=== PATIENT | female | born 1995 | race Caucasian/White ===

== ENCOUNTER 2020-10-21 12:45 | Emergency (ER) | payer OTHER, SELFPAY ==
[2020-10-21 12:58] VITALS: BP 118/76; PULSE 100; RESP 18; TEMP 36.8; O2SAT 99
[2020-10-21 13:13] LABS: Glucose Point of Care 278 mg/dl (65-105)
--- NOTE | 2020-10-21 13:49 | ED.FEVER ---
HPI - Fever General Chief Complaint: Fever Stated Complaint: white/sore throat/fever Time Seen by Provider: 10/21/20 13:50 Source: patient and RN notes reviewed Mode of arrival: ambulatory Limitations: no limitations History of Present Illness HPI Narrative: 24-year-old female with history of type 1 insulin-dependent diabetes, breast-feeding presents with concern for increased blood sugars, headache, sore throat over the past 2 days. She reports when she is ill or getting redness to her. Her blood sugars will increase. She has an insulin pump and has been requiring more insulin. She denies cough, shortness of breath, body aches, chills, sweats. Reports nausea with 2 episodes of vomiting yesterday, denies any subsequent vomiting. MD elicited complaint: fever Related Data Home Medications Medication Instructions Recorded Confirmed insulin lispro [Humalog U-100 1 sliding scale dose SUBCUT 10/21/20 10/21/20 Insulin] USEASDIRECTD Allergies Allergy/AdvReac Type Severity Reaction Status Date / Time sulfamethoxazole Allergy Mild Hives Verified 10/21/20 13:09 FLUOXETINE HCL Allergy Unknown Hives Uncoded 10/21/20 13:09 Review of Systems Review of Systems: CONSTITUTIONAL: Denies malaise, chills, sweats. Reports fever. EYES: Denies visual changes, redness, or discharge. ENT: Denies rhinorrhea, congestion, sinus pain, otalgia. Reports CARDIOVASCULAR: Denies chest pain, palpitations, or edema. RESPIRATORY: Denies cough or dyspnea. GASTROINTESTINAL: Denies abdominal pain, nausea, vomiting, diarrhea SKIN: Denies rash or itching. MUSCULOSKELETAL: Denies myalgia. NEUROLOGIC: Reports headache. All systems reviewed & are unremarkable except as noted in HPI and below PMFSH Comments At time of signature, agree with nursing past medical, surgical, social and family history. There is no relevant family history pertinent to the presenting complaint Exam Narrative: GENERAL: Well-appearing, well-nourished, and in no acute distress. HEAD: Normocephalic EYES: PERRLA, conjunctivae clear ENT: Nares clear. Mucous membranes moist. TM pearly felix with sharp light reflex bilaterally; no tragal tenderness. Oropharynx not erythematous without lesions. Tonsils not enlarged and without exudate, no drooling, no hoarseness, no trismus, uvula midline. NECK: Supple. No lymphadenopathy CHEST: Clear to auscultation, breath sounds equal. No wheezing, rhonchi, rales, or stridor. No respiratory distress, speaks in full sentences. HEART: Regular rate and rhythm. No murmur heard. SKIN: Warm, dry, no rash. NEURO: Alert and oriented x3. PSYCH: Normal mood and affect Course Course Emergency Course: Discussed with patient continue to monitor of her blood sugars. Patient reports she was hospitalized for Covid last year and is aware of signs and symptoms to monitor and is aware when she should seek care in the emergency department. Patient is aware of diagnosis, understands and agrees to treatment plan. Anticipatory guidance given. Patient agrees to follow-up as directed and is aware of reasons to seek care at the emergency department. Portions of this record may have been created with voice recognition software Vital Signs Vital signs: Vital Signs Temperature 98.2 F 10/21/20 12:58 Pulse Rate 100 10/21/20 12:58 Respiratory Rate 18 10/21/20 12:58 Blood Pressure 118/76 10/21/20 12:58 Pulse Oximetry 99 10/21/20 12:58 Temperature 98.2 F 10/21/20 12:58 Pulse Rate 100 10/21/20 12:58 Respiratory Rate 18 10/21/20 12:58 Blood Pressure 118/76 10/21/20 12:58 Pulse Oximetry 99 10/21/20 12:58 Reviewed. MDM - Fever MDM Narrative Medical decision making narrative: Differential diagnosis considered: Driscoll virus, strep pharyngitis, allergic rhinitis, upper respiratory tract infection, sinusitis, rhinosinusitis, nasopharyngitis. viral pharyngitis, otitis media, otitis externa, pneumonia, bronchitis, viral cough syndrome, viral syndrome, and
== END 2020-10-21 14:10 | disposition home or self-care (01) ==
PROVIDERS: Emergency Provider Nurse Practitioner
DX: U07.1 COVID-19 (principal); M32.9 Systemic lupus erythematosus, unspecified; E10.9 Type 1 diabetes mellitus without complications; Z96.41 Presence of insulin pump (external) (internal)
CPT/HCPCS: 82948; 87081; 87426; 87880; 99213; C9803; G0463

== ENCOUNTER 2021-06-14 15:13 | Emergency (ER) | payer OTHER, SELFPAY ==
--- NOTE | ~2021-06-14 | XR_ITS ---
XR ankle RT min 3V DATE: 06/14/2021 15:48 INDICATION: Right ankle pain after a fall last night TECHNIQUE: 4 views COMPARISON: None FINDINGS: No fracture or dislocation of the ankle or disruption of the ankle mortise. No periosteal r eaction or bone destruction. IMPRESSION: No fracture or dislocation Reviewed, dictated and finalized at location A. IMPRESSION: No fracture or dislocation
--- NOTE | ~2021-06-14 | XR_ITS ---
XR knee RT min 4V DATE: 06/14/2021 15:49 INDICATION: Right knee pain after a fall last night. TECHNIQUE: 4 views including crosstable lateral COMPARISON: None FINDINGS: No fracture or dislocation or joint effusion. No periosteal reaction or bone destruction. N o radiopaque intra-articular loose body or chondrocalcinosis. IMPRESSION: No fracture or dislocation or joint effusion Reviewed, dictated and finalized at location A.
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
[2021-06-14 15:25] VITALS: BP 117/84; PULSE 82; RESP 18; TEMP 36.7; O2SAT 99
== END 2021-06-14 16:10 | disposition home or self-care (01) ==
PROVIDERS: Emergency Provider Nurse Practitioner Family; PCP Family Medicine
DX: S93.401A Sprain of unspecified ligament of right ankle, initial encounter (principal); S83.421A Sprain of lateral collateral ligament of right knee, initial encounter; E10.9 Type 1 diabetes mellitus without complications; Z87.891 Personal history of nicotine dependence; Z79.4 Long term (current) use of insulin; W01.0XXA Fall on same level from slipping, tripping and stumbling without subsequent striking against object, initial encounter; Y92.89 Other specified places as the place of occurrence of the external cause
CPT/HCPCS: 73564; 73610; 99213; G0463

== ENCOUNTER 2021-08-06 10:11 | Emergency (ER) | payer OTHER, SELFPAY ==
[2021-08-06 10:18] VITALS: BP 114/82; PULSE 89; RESP 16; TEMP 36.5; O2SAT 99
--- NOTE | 2021-08-06 10:27 | ED.URI ---
HPI - URI/Sore Throat General Chief Complaint: Upper Respiratory Infection Stated Complaint: sore throat Time Seen by Provider: 08/06/21 10:20 History of Present Illness HPI Narrative: 25-year-old female presented for complaint of sore throat for 4 days. She does endorse associated sinus congestion and nasal drainage. Endorses right neck lymph node swelling chronically, however in the last 4 days it has been bigger and more painful. She is undergoing testing for further evaluation with her PCP. She denies headache, nausea, vomiting, cough, shortness of breath, fevers or chills. She did 2 home COVID test that were negative. She denies taking anything for symptoms. She is going on vacation tomorrow. Related Data Home Medications Medication Instructions Recorded Confirmed insulin lispro 100 unit/mL 1 sliding scale dose subcut 10/21/20 07/24/21 subcutaneous cartridge (Humalog USEASDIRECTD U-100 Insulin) Allergies Allergy/AdvReac Type Severity Reaction Status Date / Time sulfamethoxazole Allergy Mild Hives Verified 07/24/21 13:48 FLUOXETINE HCL Allergy Unknown Hives Uncoded 07/24/21 13:48 Review of Systems Review of Systems: CONSTITUTIONAL: Denies body aches, fever, chills, or sweats. EYES: Denies visual changes, redness, or discharge. ENT: Repots rhinorrhea, congestion CARDIOVASCULAR: Denies chest pain, palpitations, or edema. RESPIRATORY: Denies dyspnea. GASTROINTESTINAL: Denies abdominal pain, nausea, vomiting, or diarrhea. SKIN: Denies rash, itching, or wounds. MUSCULOSKELETAL: Denies back pain, joint pain, or myalgia. NEUROLOGIC: Denies headache PMFSH Past Medical History Medical History ADD (attention deficit disorder) ADHD Anemia Hemoglobin 13.5 with folic acid greater than 20, vitamin B12 1108, iron 77 with 36% saturation and ferritin 60 on 05/20/2021. Anxiety Asthma B12 deficiency Level normal at 1108 on 05/20/2021. Hemoglobin 13.5. BMI 28.0-28.9,adult Cervicalgia Chronic depression Diabetes Encounter to establish care Lymph nodes enlarged Myalgia Recovering alcoholic Right knee pain Sensation of knee instability Thyroid disorder Type 1 diabetes Glucose 138 with hemoglobin A1c 10.1 on 05/20/2021. Vitamin D deficiency, unspecified (05/20/21) Level low at 22 with goal greater than 30 on 05/20/2021. Wellness examination Family History Family History Father Alcoholism Hypertension Mother Cancer Depression Anxiety Thyroid disorder Other Asthma Social History Social History Smoking packs per day: 0.5 Smoking cigarettes per day: 10.0 Years smoked: 9 Smoking pack-years: 4.50 Smoking status: Former smoker Alcohol intake: former Substance use: current Substance use type: marijuana Exam Narrative: GENERAL: well-appearing EYES: conjunctivae clear ENT: Mucous membranes moist. TM pearly felix with normal light reflex bilaterally; no tragal tenderness. Oropharynx erythematous without lesions. Tonsils enlarged and without exudate. No drooling, no hoarseness, no trismus, uvula midline. No tripod positioning, hot potato voice, or soft palate swelling. NECK: Supple. right anterior cervical lymphadenopathy, tender with palpation CHEST: Clear to auscultation, breath sounds equal. No respiratory distress, speaks in full sentences. HEART: Regular rate and rhythm. No murmur heard. SKIN: Warm, dry, no rash. NEURO: Alert and oriented x3. Course Course Emergency Course: Patient is aware of diagnosis, understands and agrees to treatment plan. Anticipatory guidance given. Patient agrees to follow-up as directed and is aware of reasons to seek care at the emergency department. Portions of this record may have been created with voice recognition software Level of Care: [facility] Visit Vital
== END 2021-08-06 10:53 | disposition home or self-care (01) ==
PROVIDERS: Emergency Provider Nurse Practitioner Family; PCP Family Medicine
DX: J02.9 Acute pharyngitis, unspecified (principal); J45.909 Unspecified asthma, uncomplicated; E10.9 Type 1 diabetes mellitus without complications
CPT/HCPCS: 87081; 87804; 87880; 99213; G0463

== ENCOUNTER 2023-08-07 18:03 | Emergency (ER) | payer OTHER, SELFPAY ==
--- NOTE | ~2023-08-07 | XR_ITS ---
EXAMINATION: XR elbow LT min 3V DATE: 08/07/2023 19:29 INDICATION: Left elbow injury. TECHNIQUE: 4 views of left elbow were obtained. COMPARISON: None. FINDINGS: Bone alignment is normal. No fracture. Joint spaces are normal. No elbow joint effusion. IMPRESSION: 1. No fracture. Reviewed, dictated and finalized at location E. IMPRESSION: 1. No fracture.
--- NOTE | 2023-08-07 18:06 | ED.GENADULT ---
HPI - General Adult General Chief complaint: Extremity Injury, Upper <HEMANT Schmidt - Last Filed: 08/07/23 18:31> Stated complaint: left elbow pain <HEMANT Schmidt - Last Filed: 08/07/23 18:31> Time Seen by Provider: 08/07/23 18:06 <HEMANT Schmidt - Last Filed: 08/07/23 18:31> Source: patient <HEMANT Schmidt - Last Filed: 08/07/23 18:31> Mode of arrival: ambulatory <HEMANT Schmidt - Last Filed: 08/07/23 18:31> Limitations: no limitations <HEMANT Schmidt - Last Filed: 08/07/23 18:31> History of Present Illness HPI narrative: 27-year-old female patient presents to the [facility] with complaints of left elbow pain. Patient states she was sliding down a inflatable slide and hit her left elbow on the middle portion of the pool. Patient states happened approximately 4 hours ago and is having a bit of tingling to the 3rd and 4th digit of the left hand. Patient states it hurts when she bends the elbow but no pain with extending the elbow. Patient states she did take some Tylenol prior to arrival. <HEMANT Schmidt - Last Filed: 08/07/23 18:31> Related Data Home medications: Home Medications Medication Instructions Recorded Confirmed insulin lispro 100 unit/mL 1 sliding scale dose subcut 10/21/20 08/07/23 subcutaneous cartridge (Humalog USEASDIRECTD U-100 Insulin) blood-glucose sensor (Dexcom G7 08/07/23 08/07/23 Sensor device) blood-glucose transmitter (Dexcom 08/07/23 08/07/23 G6 Transmitter device) <HEMANT Schmidt - Last Filed: 08/07/23 18:31> Allergies/adverse reactions: Allergies Allergy/AdvReac Type Severity Reaction Status Date / Time sulfamethoxazole AdvReac Mild Hives Verified 08/07/23 18:10 FLUOXETINE HCL AdvReac Mild Hives Uncoded 08/07/23 18:10 <HEMANT Schmidt - Last Filed: 08/07/23 18:31> Review of Systems Review of Systems: CONSTITUTIONAL: Denies fever, chills, or sweats. EYES: Denies visual changes, redness, or discharge. ENT: Denies rhinorrhea, congestion, sore throat, or otalgia. CARDIOVASCULAR: Denies chest pain, palpitations, or edema. RESPIRATORY: Denies cough or dyspnea. GASTROINTESTINAL: Denies abdominal pain, nausea, vomiting, or diarrhea. GENITOURINARY: Denies dysuria or hematuria. SKIN: Denies rash or itching. MUSCULOSKELETAL: Denies back pain, joint pain, or myalgia. Positive left elbow pain NEUROLOGIC: Denies headache, numbness, or weakness. PSYCHIATRIC: Denies anxiety or depression. <HEMANT Schmidt - Last Filed: 08/07/23 18:31> [facility] Past Medical History Medical History: Medical History ADD (attention deficit disorder) ADHD Anemia Hemoglobin 13.5 with folic acid greater than 20, vitamin B12 1108, iron 77 with 36% saturation and ferritin 60 on 05/20/2021. Anxiety Asthma B12 deficiency Level normal at 1108 on 05/20/2021. Hemoglobin 13.5. BMI 28.0-28.9,adult Cervicalgia Chronic depression Diabetes Encounter to establish care Infected dental caries Insomnia Lymph nodes enlarged Myalgia Periodontal disease Recovering alcoholic Right knee pain Sensation of knee instability Thyroid disorder Type 1 diabetes Glucose 138 with hemoglobin A1c 10.1 on 05/20/2021. Vitamin D deficiency, unspecified (05/20/21) Level low at 22 with goal greater than 30 on 05/20/2021. Wellness examination <HEMANT Schmidt - Last Filed: 08/07/23 18:31> Family History Family History: Family History Father Alcoholism Hypertension Mother Cancer Depression Anxiety Thyroid disorder Other Asthma <HEMANT Schmidt - Last Filed: 08/07/23 18:31> Social History Social History: Social History Smoking packs per day: 0.5 Smoking cigarettes per day: 10.0 Years smoked: 9 [place]
[2023-08-07 18:12] VITALS: BP 123/88; PULSE 102; RESP 16; TEMP 36.7; O2SAT 100
== END 2023-08-07 19:45 | disposition home or self-care (01) ==
PROVIDERS: Emergency Provider Nurse Practitioner Family; PCP Family Medicine
DX: S50.02XA Contusion of left elbow, initial encounter (principal); W22.8XXA Striking against or struck by other objects, initial encounter; E10.9 Type 1 diabetes mellitus without complications; Z79.4 Long term (current) use of insulin; Z87.891 Personal history of nicotine dependence; F12.90 Cannabis use, unspecified, uncomplicated
CPT/HCPCS: 73080; 99213; G0463

== ENCOUNTER → 2023-08-11 08:57 | Outpatient (CLI) | payer OTHER, SELFPAY ==
--- NOTE | ~2023-08-11 | XR_ITS ---
EXAMINATION: XR elbow LT min 3V DATE: 08/11/2023 09:11 INDICATION: Left elbow pain. Injury. TECHNIQUE: 4 views of left elbow were obtained. COMPARISON: Left elbow radiograph 08/07/2023 FINDINGS: Bone alignment is normal. No fracture. Joint spaces are well maintained. There is no elbow joint effusion. IMPRESSION: 1. No fracture. Reviewed, dictated and finalized at location A. IMPRESSION: 1. No fracture.
== END ==
LOC: EXPTROY 08:59
PROVIDERS: PCP Nurse Practitioner Family; Visit Provider Nurse Practitioner Family
DX: M25.522 Pain in left elbow (principal); W19.XXXA Unspecified fall, initial encounter
CPT/HCPCS: 73080

== ENCOUNTER 2024-03-19 14:16 | Outpatient (CLI) | payer OTHER, SELFPAY ==
--- OUTSIDE RECORDS SUMMARY | 2024-03-19 15:11 | XMS_ITS | Encounter Summary ---
Author Organization [facility] Address [address] [facility] [address] [place] [address] Phone Care Team Providers Care Electrical Instrument Technician Name Role Phone No, Physician Primary Care Provider Clinic, Physical Meteorologist X. Primary Care Provider No, Physician Primary Care Provider No, Physician Primary Care Provider Clinic, Physical Meteorologist X. Primary Care Provider No, Physician Primary Care Provider Clinic, Physical Meteorologist X. Primary Care Provider No, Physician Primary Care Provider Clinic, Physical Meteorologist X. Primary Care Provider No, Physician Primary Care Provider Clinic, Physical Meteorologist X. Primary Care Provider No, Physician Primary Care Provider Clinic, Physical Meteorologist X. Primary Care Provider Clinic, Physical Meteorologist X. Primary Care Provider Clinic, Physical Meteorologist X. Primary Care Provider No, Physician Primary Care Provider No, Physician Primary Care Provider Clinic, Physical Meteorologist X. Primary Care Provider No, Physician Primary Care Provider Ary Kwan NP Primary Care Provider [phone] Clinic, Physical Meteorologist X. Primary Care Provider [phone] Bhargav Jain MD Primary Care Provider [phone] Encounter Details Date Type Department Care Team (Late st Contact Info) Description 12/05/2019 Ophth Exam [facility] [address] [place] [address] [address] [place] [id number] Vimal Stuart MD [address] [facility] [phone] [id number] [place] [address] Social History Tobacco Use Types Packs/Day Years Used Date Smoking Tobacco: Former Cigarettes Smokeless Tobacco: Never Comments:one pack per week Alcohol Use Standard Drinks/Week Comments Never 0 (1 standard drink = 0.6 oz pur e alcohol) AUDIT-C Answer Date Recorded Frequency of Alcohol Consumption Never 07/12/2019 Average Number of Drinks Not on file 020 Frequency of Binge Drinking Not on file 06/15 Comments Yes Sex and Gender Information Value Date Recorded Sex Assigned at Not on file Legal 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 Author Med Mgmt Goal - Patient will understand importance of following medication regimen and will take appropriate steps to maintain regimen ACO Care Management Maddy Meyers Note: Problem: Medication management Interventions: - Assess barriers to medication adherence: Provide coordination of care, education and resources to address these barriers. Include SW in patient's plan of care for resources if needed. - Instruct patient to: Take each medication each day at the times indicated by using a system (list, pill box, etc.). Do not allow prescriptions to or bottles to become empty before requesting refills. Bring all medications to each office visit. Contact physician or CM if they feel they are having side effects from medications (rather than stopping them without telling anyone). TTW Diabetes Goal - Patient verbalizes knowledge and ability to manage diabetes TTW Case Management No Kim Velasco, RN Note: Problem: Knowledge deficit - Diabetes Interventions: - Provide educational materials specific to patient needs. - Follow up within 1-2 weeks of mailing to review materials and ensure patient understands information provided. documented as of this encounter Visit Diagnoses Not on filedocumented in this encounter Additional Health Concerns Infection Onset Date Last Indicated Resolved Time C. difficile suspected 08/25/2023 08/25/202308/24 12:58 PM CDT documented as of this encounter Eye Exam Visual Acuity Right eye Left eye Near sc 20/40 ph 20/25 20/25 ph 20/20 Patient states her right eye has always been weaker than her left eye Pupils Dark Light Shape React APD Right eye 5 3 Round Brisk None Left eye 5 3 Round Brisk None Visual Noe Right eye Left eye Full Full Extraocular Movement Right eye Left eye Full Full No pain with EOMs Neuro/Psych Oriented x3: Yes Dilation Both eyes: 1.0% Mydriacyl, 2 .5% Phenylephrine @ 4:55 AM External Exam Right eye Left eye External Mild periorbital edema and eryth chasity Normal Slit Lamp Exam Right eye Left eye Lids/Lashes Periorbital edema an d erythema, upper and lower eyelid edema. No obvious discharge/drainage but some eyelid crusting upon waking up this AM. Normal Conjunctiva/Sclera Injection, papillary reaction along inferior eyelid White and quiet Cornea Clear, no stain uptake Clear Anterior Chamber Deep and formed Deep and formed Iris Round and reactive Round and vee ctive Lens Clear Clear Fundus Exam Right eye Left eye Disc Normal Normal C/D Ratio 0.2 0.2 Macula Normal Normal Vessels Normal Normal Periphery Normal Normal Care Teams Electrical Instrument Technician Relationship Specialty Start Date End Date No, Physician PCP - General 12/03/19 12/08/19 Clinic, Physical Meteorologist [address] [place] [address] PCP - General 12/09/19 12/16/19 No, Physician PCP - General 12/18/19 12/20/19 No, Physician PCP - General 12/17/19 12/17/19 Clinic, Physical Meteorologist [address] [place] [address] PCP - General 12/21/19 12/30/19 No, Physician PCP - General 12/31/19 12/31/19 Clinic, Physical Meteorologist [address] [place] [address] PCP - General 01/01/20 01/24/20 No, Physician PCP - General 01/25/20 02/01/20 Clinic, Physical Meteorologist [address] [place] [address] PCP - General 02/02/20 02/03/20 No, Physician PCP - General 02/04/20 03/07/20 Clinic, Physical Meteorologist [address] [place] [address] PCP - General 03/08/20 03/10/20 No, Physician PCP - General 03/16/20 03/19/20 Clinic, Physical Meteorologist [address] [place] [address] PCP - General 03/20/20 03/27/20 [facility], Physical Meteorologist [address] [place] [address] PCP - General 03/28/20 04/03/20 [facility], Physical Meteorologist [address] [place] [address] PCP - General 04/05/20 04/07/20 No, Physician PCP - General 04/08/20 04/08/20 No, Physician PCP - General 04/09/20 05/28/20 Clinic, Physical Meteorologist [address] [place] [address] PCP - General 05/29/20 06/05/20 No, Physician PCP - General 03/30/21 03/30/21 Ary Kwan NP [address] [place] [address] PCP - General Family Medicine 03/31/21 05/20/21 Clinic, Physical Meteorologist [address] [place] [address] PCP - General 05/21/21 02/23/22 Bhargav Jain MD [address] [address] PCP - General Family Medicine 02/24/22 documented as of this encounter
--- OUTSIDE RECORDS SUMMARY | 2024-03-19 15:11 | XMS_ITS | Clinical Summary ---
Author Organization [facility] Address [address] [place] [address] Care Team Providers Care Assistant Credit Manager Name Role Phone Bhargav Jain MD Primary Care Provider [phone] Allergies Active Allergy Reactions Criticality Noted Date Comments Sulfamethoxazole-Trimethoprim Swelling Medium 2018 Fluoxetine Swelling,Urticaria Medium 05/18/2012 Medications albuterol HFA (PROVENTIL HFA,VENTOLIN HFA,PROAIR HFA) 90 mcg/actuation inhaler Inhale 2 puffs every 4 (four) hours as needed for wheezing 1 Inhaler 1 0 Active ARIPiprazole (ABILIFY) 10 mg tablet Take 0.5 tablets (5 mg total) by mouth daily 2 Active venlafaxine XR (EFFEXOR-XR) 75 mg 24 hr capsule Take 1 capsule (75 mg total) by mouth daily 2 Active acetone, urine, test stripIndications: Type 1 diabetes mellitus with hyperglycemia (HCC) Test first AM urine and as directed 100 strip 11 3 Active insulin syringe-needle U-100 0.5 mL 31 gauge x 5/16 syringeIndication s:Type 1 diabetes mellitus with hyperglycemia (HCC) Use to inject 1-4 times daily as directed when off pump. 100 each 11 3 Active Additional Information Patient not taking.Reported on 07/13/2023 insulin glargine (BASAGLAR) 100 unit/mL (3 mL) pen for injection Inject 25 Units under the skin as needed (in case of insulin pump failure) 3 mL 3 Active dextroamphetamine -amphetamine (ADDERALL) 15 mg tablet TAKE 1 TABLET BY MOUTH TWICE DAILY TAKE 4-6 HOURS APART 4 Active glucagon (Baqsimi) 3 mg/actuation spray,non-aerosol Indications:patie nt with diabetes mellitus at risk of hypoglycemia Administer 1 spray into one nostril as needed (severe hypoglycemia) 2 each 11 4 Active blood-glucose sensor (Dexcom G7 Sensor) deviceIndications :E10.65 Z79.4 Use as directed to monitor blood glucose. 9 each 3 4 Active triamcinolone (KENALOG) 0.1 % ointment Apply topically 2 (two) times a day 4 Active mupirocin (BACTROBAN) 2 % ointment Apply topically 2 (two) times a day 4 Active diphenhydrAMINE (BENADRYL) 25 mg capsule Take 1 tablet/capsule (25 mg total) by mouth every 6 (six) hours as needed for itching 4 Active insulin lispro (HumaLOG, ADMELOG) 100 unit/mL vial for injectionIndicati ons:Type 1 diabetes mellitus with hyperglycemia (HCC) INFUSE UP TO 80 UNITS VIA INSULIN PUMP DAILY 20 mL 3 4 Active Active Problems Problem Noted Date Diagnosed Date Hyperglycemia 08/25/2023 Assessment & Plan (08/27/2023 11:14 AM CDT): Presented with hyperglycemia, positive ketones 0.8, anion gap metabolic acidosis in the setting of ketosis and lactic acidosis 4.6 that improved to 2.8 with IV fluids in emergency department. Given improvement in lactate 2.8, non acidosis on ABG 7.35, well-appearing patient, will defer initiating DKA protocol at this point and will treat with subcu insulin. Positive urinalysis, however patient denies any urinary symptoms, fever. No leukocytosis. Negative viral panel. - IVF LR discontinued on 08/25. - Appreciate Endocrinology recs: Sensitive correctional Lispro (Admelog) TID AC, HS, Added Lispro sensitive (Admelog) TID AC, HS POC glucoses TID AC, HS, 2AM when eating Consistent carb diet when eating, no juices, no regular soda UTI (urinary tract infection) 08/25/2023 Assessment & Plan (08/27/2023 11:17 AM CDT): Positive urinalysis, however patient denies any urinary symptoms, fever. No leukocytosis. Will treat given concerns for DKA in this patient with type 1 diabetes. Urine culture showed >100,000 E.coli - ceftriaxone while inpatient (08/24- 08/26). - Likely discharge on PO Keflex 500 mg 1 tab BID to complete course for 7 days Depression, major, recurrent 08/25/2023 Skin rash 08/25/2023 Assessment & Plan (08/27/2023 11:15 AM CDT): Presented with multiple maculopapular spots on her extremities, pruritic, tender to touch, some with yellow drainage and crusting, on extremities with 2 breast lesions. Possibly staph infection. Received vancomycin in emergency department. - Discontinued vancomycin on 08/25 - Appreciate dermatology recs : Start Triamcinolone 0.1% ointmt BID to itchy red areas rash Start Mupirocin 2% ointmt BID to itchy red open areas of rash OK to discontinue Vanc from skin standpoint, discontinued vanc. Avoid scratching lesions Hypertriglyceridemia 10/15/2022 Hepatic steatosis 10/15/2022 Insulin pump titration 07/01/2021 Abnormal thyroid function test 07/01/2021 Upper back pain 04/25/2021 Assessment & Plan (04/25/2021 2:59 PM RESEARCH NEUROPSYCHOLOGIST): Ibuprofen 600 mg every 6 hours Muscle relaxant as needed at night. Alternate heat and ice. Stretches Follow up with your provider if you do not improve. Overweight (BMI 25.0-29.9) 06/06/2020 care following vaginal delivery 04/09 Overview (04/11/2020): # ID: Afebrile. No signs/symptoms of infection. COVID-19 negative. H/o STIs: Diagnosed with trich and chlamydia in this , s/p treatment and MARLEN except trich (tested too early). Plan to MARLEN trich PP, took tx on 03/15/20 # Heme: EBL 350 mL. Hemodynamically stable. # CV/Pulm: Vital signs stable, within normal limits. CA Asthma: Albuterol PRN, last needed inhaler 6 months ago # GI/: Tolerating PO. Voiding spontaneously. # Pain: Controlled with above regimen. # Post DVT prophylaxis: The patient has the following MAJOR risk factors none and the following MINOR risk factors BMI 30-39. SCDs ordered for VTE prophylaxis. # MOC: Desires nexplanon placement. Will place prior to d/c # MOF: # Disposition: Desires discharge home today #T1DM: Managed with dexcom/pump. Endocrine consulted for pump orders and following. BG well controlled, had 1 hypoglycemia episode yesterday PM down to 63. Per note 04/09, decrease basal rate 80% but will t/b 04/11. Plan to f/u with Endocrine this Am regarding management of insulin pump, pt scheduled to f/u with Endocrine on 04/18 # H/o Tobacco use: Quit four months ago. Encounter for induction of labor 04/08/2020 Overview (04/09/2020): 1. Induction of Labor for T1DM: s/p AROM, on OT. Continue per protocol 2. FWB: Continuous monitoring. tracing category II, reassured by moderate variability. 3. ID: HIV negative. GBS positive, on PCN. Membrane Status: intact. 4. LGA: Growth on admission 4018g (94.3%). Discussed risk of shoulder dystocia. 5. T1DM: Previously managed with dexcom/pump. Insulin gtt PRN 6. CA Asthma: Albuterol PRN, last needed inhaler 6 months ago 7. H/o Tobacco use: Quit four months ago. 8. H/o STIs: Diagnosed with trich and chlamydia in this , s/p treatment and MARLEN except trich (tested too early). 9. Indications for UDS: history of illicit drug use in last 12 months. Verbal consent obtained for UDS: Yes 10. MOF: Plans to breastfeed. 11. MOC: Plans to use nexplanon for contraception. 12. Pain management: Epidural to be placed by anesthesia. 13. Post DVT prophylaxis: The patient has the following MAJOR risk factors none and the following MINOR risk factors BMI 30-39. SCDs will be ordered for VTE prophylaxis . 14. COVID Test Status: Test sent on admission negative. Excessive growth affec ting management of in third trimester 03/28/2020 Overview (04/04/2020): 03/28/2020 EFW 3,890g (99%), AC >99% Discussed with Dr. West and plan for repeat growth next week at 38w6d Will schedule C/S delivery at 39 weeks but confirm delivery plan with next growth US, if patient presents in spontaneous labor prior to next growth will need to discuss MOD Reviewed risks of LGA including C/S, shoulder dystocia, hypoglyecmia and pp hemorrhage Excessive growth affec ting management of mother in third trimester, antepartum 03/16/2020 Overview (03/28/2020): Added automatically from request for surgery [id number] Thrombocytopenia affecting ([facility]) 0 03/07/2020 Overview (03/28/2020): 02/26: plt 142 Continue to monitor closely [] repeat at 37 wks- ordered Heartburn during in third trimester Overview (03/04/2020): Significant heartburn. Pepcid helping Acute follicular conjunctivitis of right eye Assessment & Plan (12/07/2019 1:55 PM CDT): Patient with swelling and erythema affecting the right eye. Seen while in the hospital on 12/05/2019. Has improved with augmentin -- today with, exam most consistent with follicular conjunctivitis, concerning for chlamydial conjunctivitis -- pt has been treated for chlamydia 13 weeks ago, has been receiving frequent GC/Chlamydia tests with [facility]. Most recent was negative in early November Plan: -- will change topical drops (gtts) to moxifloxacin (intolerant of polytrim, does not like ointment -- will give azithromycin 1g once -- conj culture taken today -- will contact [facility] -- RTC in 10 days Positive urine drug screen 09/19/2019 Overview (03/21/2020): UDS + for amphetamine and THC during 09/14/2019 hospital admission 12/04 + THC 02/26 +THC Social work consult completed Sexually transmitted infection affecting pregnan cy 09/19/2019 Overview (04/04/2020): 08/27/2019: POSITIVE CT, GC and Trich Diagnosed and treated again for trich 10/11 with metronidazole 7 day course. 11/18- gc/ct neg/neg, trichamoniasis- positive, prescription for flagyl 500mg bid for 7 days 01/24- gonorrhea +, chlamydia -, trich + gonorrhea treated 01/31, only completed 5 days of flagyl 02/26: gc/ct negative, trich positive (pt notified 03/03 and new rx sent for 7 day course of flagyl) counseled on importance of completing the full course 03/07: Pt states she is unable to keep down flagyl. States regardless of what she does she throws up the dose every time. 03/11/2020 s/p tinidazole 03/18/20 GC/CT [NEG/NEG], TRICH [POS - retest obtained too early - pt took treatment on 03/15/20 ] Needs Trich retest on 04/07/20 Type 1 diabetes mellitus with hyperglycemia 08/15 Overview (04/04/2020): - Type 1 DM diagnosed age 18 - Followed with [facility] - Managed on Lantus and Humalog - Labs: A1C 08/27/19 9.9%, Cr 0.5, normal LFTs, TSH wnl She always eats a 70 gram of carbs with her meals. CGM, Dexcom Log in information: [email or web address] User name: Rafael Password: [email or web address] Current Regimen 04/04/2020 12a-3a ??1.45 -- 1.5 3a-12p ?1.5 12p-6p 1.55 -- 1.6 6p-12a ??1.6 -- 1.65 ?? CF: 1:20 I:C 1:3.5; 12p-5p 1:2.5 Active insulin 3 hours Target BG 100 -Using dexcom clarity CGM -Previously counseled, aware of BS goals -We will plan to monitor blood glucose log weekly for adjustment -Anatomic survey and echo complete and normal -Continue serial growth ultrasounds- (AGA 80% 02/25/20) -Start twice weekly testing starting at 32 weeks ([facility] at [place], [facility]) -Delivery at 37-39 weeks depending on compliance and glycemic control. -Continue ASA for preeclampsia prevention Assessment & Plan (04/04/2020 10:44 AM RESEARCH NEUROPSYCHOLOGIST): BS log will be reviewed by M fellow following this appointment and Mitali will be notified of any changes. Assessment & Plan (03/07/2020 1:50 PM RESEARCH NEUROPSYCHOLOGIST): BS log reviewed by Dr. West, adjustments made above. Will continue weekly visits for insulin adjustments. Assessment & Plan (02/11/2020 7:59 PM RESEARCH NEUROPSYCHOLOGIST): Blood sugars over the last 4 days with mildly elevated fasting to 102. Postprandials elevated to max 246 but was accidentally taking humalog 16 units q hs with meals instead of prescribed 20. Recommended to start 20 humalog daily with meals and additional glucose logs provided, encouraged to send every week for review. CGM broken for a few days (now fixed). No hypoglycemic episodes. Assessment & Plan (02/01/2020 8:29 PM RESEARCH NEUROPSYCHOLOGIST): BS log reviewed today by Dr. Phipps and changes made. Assessment & Plan (09/19/2019 3:33 PM CDT): Will continue current regimen and add medication for nausea. Rx placed today. Recommend she call our office with lows <65. She will keep a good log and will review in 1 week. [facility] 09/04/2019 Overview (03/21/2020): - Previously smoked 5 cig/day, quit Asthma during 09/04/2019 Overview (03/21/2020): - Does not use any rescue inhaler at this time, Rx Albuterol PRN - Denies recent exacerbation. Prior 09/04/2019 Overview (03/21/2020): - Prior 36 week spontaneous PTB - Counseled patient on option for progesterone therapy, currently declines - Normal cervical length sreening Supervision of high-risk , unspecified trimester 08/29/2019 Overview (04/04/2020): [x] Full [facility] Care Referring provided: Dr. 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 Discussed plan with Dr. West and will schedule C/S delivery at 39 weeks and repeat growth at 38w6d prior to delivery. Patient is ok with C/S delivery if indicated. C/S scheduled 04/12/20 @ 0930 [x] Place of delivery: [facility] [x] MOC: Nexplanon [x] Method of feeding: breast [x] Steam Setter: [x] PP Depression Discussed: Autoimmune disorder 07/27/2019 Overview (08/27/2019): 08/27/19 states she is being worked up, does not have a diagnosis. Hives 06/04/2019 Overview (06/04/2019): Experiencing hives intermittently. No new soaps or detergents. Assessment & Plan (06/04/2019 3:51 PM CDT): -Desonide cream prn, advised to use sparingly as may cause thinning of skin Gingivitis 06/04/2019 Assessment & Plan (06/04/2019 4:02 PM CDT): -Advised to go to dentist Does not have health insurance 06/04/2019 Overview (06/04/2019): Uninsured. 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 Previously was told she made too much and did not qualify for state assistance but should qualify now. Assessment & Plan (06/04/2019 4:03 PM CDT): Advised patient to apply for insurance Tobacco use 11/10/2018 Overview (06/04/2019): Smoking 5-7 cigarettes per day. Quit date of 06/08. Counseled regarding use of nicotine patch and gum. Patient is able to identify stressors which lead to her smoking as well as benefits of quitting smoking (better health for her daughter, her diabetes). Assessment & Plan (06/04/2019 3:49 PM CDT): -Nicotine patch & gum Asthma 06/16/2012 Overview (02/01/2020): 08/27/19 Uses breathing treatments at home when necessary. States it has been about 3 months since last use. Assessment & Plan (01/22/2023 10:45 AM RESEARCH NEUROPSYCHOLOGIST): --Continue PRN albuterol inhaler Depression 06/16/2012 Overview (03/04/2020): Mood ok, decided to not start Zoloft. No SI/HI. Will let us know if she desires additional support. - Continue to monitor mood Assessment & Plan (08/25/2023 4:15 AM CDT): History of depression and ADHD: Continue home Abilify, venlafaxine, Adderall Assessment & Plan (01/22/2023 10:45 AM RESEARCH NEUROPSYCHOLOGIST): --Continue home doses of Abilify and venlafaxine Resolved Problems Problem Noted Date Diagnosed Date Resolved Date Diabetic ketoacidosis withou t coma associated with type 1 diabetes mellitus ([facility]) 05/23/2022 07/13/2023 Assessment & Plan (01/23/2023 11:09 AM RESEARCH NEUROPSYCHOLOGIST): A1c 9.6% in January 2023. Patient presents with 3 weeks of severe hyperglycemia and positive serum ketones. Her hyperglycemia worsened 1.5 weeks ago after she switched from her insulin pump to subcutaneous short acting insulin injections after developing cellulitis at her pump site (since resolved). Prior to admission, she had been administering short-acting insulin (20 to 40 units per meal) without administration of basal insulin. She was treated in the ED with an insulin drip, IV fluids and IV potassium with subsequent closure of her anion gap. - Weight-based, basal bolus regimen ordered with glargine 13 units q am, Lispro 4 units TID AC and sliding-scale insulin - endocrinology consulted for reinitiation of insulin pump, and saw patient 12/10 AM with plan made Pre-existing type 1 diabetes mellitus during , antepartum 03/16/2020 07/13/2023 Overview (03/28/2020): Added automatically from request for surgery [id number] Type 1 diabetes mellitus wit h complication ([facility]) 11/08/2018 02/11/2020 Overview (06/04/2019): Current regimen: Lantus 20, humalog 10 tid HbA1c Lab Results Component Value Date HGBA1C 13.0 (H) 11/07/2018 BP At goal Not at goal BP Readings from Last 1 Encounters: 06/04/19 119/74 Microalbumin/Creatinine No results found for: MICROALBUR, [id number] ACEi/ARB prescribed: lisinopril 2.5 Antiplatelet therapy prescribed no due to patient age ASCVD risk score The ASCVD Risk score (Lewis BARNES Jr., et al., 2013) failed to calculate for the following reasons: The 2013 ASCVD risk score is only valid for ages 40 to 79 Foot/extremity exam loss of sensation under big toe Retinopathy seen by eye doctor within past year Ancillary Support : bag bundler, DM educator and pharmacist Assessment & Plan (06/04/2019 4:01 PM CDT): -Will refer to endo -Repeat HgbA1C -Microalb:Cr ratio Assessment & Plan (11/08/2018 12:48 PM CDT): On admission, patient had blood glucose of 497 and AG of 16. -On the date of discharge, AM glucose is 214 and AG is 8. -Patient required 9 sliding scale units the day before discharge in addition to her 15 units QHS and 10 units with meals. -Home with insulin glargine 20 units QHS and insulin lispro 12 units TID with meals -Blood glucose checks QAM, QAC, QHS -Follow up with PCP -No sliding scale insulin at home for now- can consider starting it as outpatient Encounters Date Type Department Care Team Description 01/30/2024 Telephone [facility] Endocrinology Metabolism and Lipid [address] [facility] [address], [address] [place] [address] Naya Marcus RMA from Last 3 Months Immunizations Name Administration Dates Next Due DTaP 10/18/2001,,07/04/1996,05/02/1996,0 03/02/1996 Hep A, Adult 10/25/2019 Hep B, Adolescent or Pediatric 10/18/2001,1996,02/21/1996 Influenza, Trivalent, IM (MDV) 11/30/2010 MMR 04/11/2020(Deferred: No longer needed),10/18/2001,04/25/1997 OPV 10/18/2001,08/24/1997,05/02/1996 ,03/02/1996 Tdap 02/01/2020,03/14/2012 Varicella 03/14/2012 Medical History Medical History Date Comments Diabetes mellitus (HCC) Thyroid disease Diabetes mellitus type 1 (HCC) 2014 Anxiety and depression Asthma Urinary tract infection Diabetic ketoacidosis withou t coma associated with type 1 diabetes mellitus (CMS/HCC) (HCC) 05/23/2022 Pre-existing type 1 diabetes mellitus during , antepartum 03/16/2020 Added automatically from request for surgery [id number] Family History Medical History Relation Name Comments Diabetes Maternal Grandmother Cervical cancer Mother Thyroid disease Mother Relation Name Status Comments Maternal Grandmother Mother Alive Social History Tobacco Use Types Packs/Day Years Used Date Smoking Tobacco: Former Cigarettes Smokeless Tobacco: Never Tobacco Cessation:Counseling Given: Not Answered Comments:one pack per week Alcohol Use Standard Drinks/Week Comments Never 0 (1 standard drink = 0.6 oz pur e alcohol) [facility] [employer] Answer Date Recorded In the past 12 months has e [employer], gas, oil, or water [employer] threatened to shut off services in your home? No 08/25/2023 Humiliation, Afraid, Rape, and Kick questionnair e Answer Date Recorded Within the last year, have y ou been afraid of your partner or ex-partner? No 08/25/2023 Within the last year, have y ou been humiliated or emotionally abused in other ways by your partner or ex-partner? No Within the last year, have y ou been kicked, hit, slapped, or otherwise physically hurt by your partner or ex-partner? No 08/25/2023 Within the last year, have y ou been raped or forced to have any kind of sexual activity by your partner or ex-partner? No 08/25/2023 Social Connection and Isolat ion Panel [NHANES] Answer Date Recorded In a typical week, how many times do you talk on the phone with family, friends, or neighbors? More than three times a week 08/25/2023 How often do you get togethe r with friends or relatives? More than three times a week 08/25/2023 How often do you attend chur ch or yazdanism services? Never 08/25/2023 Do you belong to any clubs o r organizations such as samaritan groups, unions, fraternal or athletic groups, or school groups? No 08/25/2023 How often do you attend meet ings of the clubs or organizations you belong to? Never 08/25/2023 Are you , , di vorced, , never , or living with a partner? Never 08/25/2023 AUDIT-C Answer Date Recorded Q1: How often do you have a drink containing alc ohol? Monthly or less 08/25/2023 Q2: How many drinks containi ng alcohol do you have on a typical day when you are drinking? 1 or 2 08/25/2023 Q3: How often do you have si x or more drinks on one occasion? Never 08/25/2023 Overall Financial Resource Strain (CARDIA) Answe r Date Recorded How hard is it for you to pa y for the very basics like food, housing, medical care, and heating? Somewhat hard 08/25/2023 [facility] - Occupational Stress Questionnaire Answer Date Recorded Do you feel stress - tense, restless, nervous, or anxious, or unable to sleep at night because your mind is troubled all the time - these days? Only a little 08/25/2023 Exercise Vital Sign Answer Date Recorde d On average, how many days pe r week do you engage in moderate to strenuous exercise (like a brisk walk)? 0 days 08/25/2023 On average, how many minutes do you engage in exercise at this level? 0 min 08/25/2023 Hunger Vital Sign Answer Date Recorded Within the past 12 months, y ou worried that your food would run out before you got the money to buy more. Never true 08/25/19 24 Within the past 12 months, t he food you bought just didn't last and you didn't have money to get more. Never true 08/25/2023 PRAPARE - Transportation Answer Date Re corded In the past 12 months, has l ack of transportation kept you from medical appointments or from getting medications? No 08/14 In the past 12 months, has l ack of transportation kept you from meetings, work, or from getting things needed for daily living? No 08/25/2023 Housing Stability Vital Sign Answer Omer e Recorded In the last 12 months, was t here a time when you were not able to pay the mortgage or rent on time? No 05/24/2022 In the last 12 months, how many places have you lived? 1 05/24/2022 In the last 12 months, was t here a time when you did not have a steady place to sleep or slept in a custodial (including now)? No 05/24/2022 [place] Depression Scale Answer Date Recorded [place] Depression Scale Total 0 05/28/2020 The thought of harming myself has occurred to me . Never 05/28/2020 Housing Stability Vital Sign Answer Omer e Recorded In the last 12 months, was t here a time when you were not able to pay the mortgage or rent on time? Yes 08/25/2023 In the past 12 months, how m any times have you moved where you were living? 0 08/25/2023 At any time in the past 12 m [facility], were you homeless or living in a custodial (including now)? No 08/25/2023 Personal Safety Answer Date Recorded Have you ever been in or are you currently in a harmful physical or emotional relationship or is someone making you feel afraid or unsafe? Denies 08/25/2023 Comments Unknown Sex and Gender Information Value Date Recorded Sex Assigned at Not on file Legal Sex Female 9:20 AM RESEARCH NEUROPSYCHOLOGIST Gender Identity Not on file Sexual Orientation Not on file Obstetrics History Para Term AB IAB SAB Ectopic Multiple Livin g Live Births 3 2 1 1 1 1 0 2 2 Date Outcome GA Total Labor Labor/2nd/3rd Weight Sex Type Anes PTL Hannah A1 A5 Name Clin SAB SAB 5 36w 0d 2.807 kg (6 lb 3 oz) F Vag-S pont Livin g 2020 Term 38w 4d 0h 27m 0h 22m/0h 05m 3.995 kg (8 lb 12.9 oz) M Vag-S pont Epidur al N Livin g 8 9 CELESTE WILLIS Jeanni e Chen, MD Complications:Shoulder Dysto matt Delivery Location:[facility] Main C ampus ([facility] 58LD) Last Filed Vital Signs Vital Sign Reading Time Taken Comments Blood Pressure 131/87 08/27/2023 11:30 AM CDT Pulse 91 08/27/2023 11:30 AM CDT Temperature 36.7 ??C (98.1 ??F) 08/27/2023 1 1:30 AM CDT Respiratory Rate 18 08/27/2023 11:3 0 AM CDT Oxygen Saturation 100% 08/27/2023 11: 30 AM CDT Inhaled Oxygen Concentration - - Weight 94.8 kg (208 lb 15.9 oz) 024 10:20 PM CDT Height 177.8 cm (5' 10 ) 08/25/2023 10: 20 PM CDT Body Mass Index 29.99 08/25/2023 10:20 PM CDT Plan of Treatment Health Maintenance Due Date Last Done Comments Cervical Cancer Screening 1995 Foot Exam 1995 Pneumococcal vaccine <65 (1 of 2 - PCV) 12/19/2001 Varicella Vaccines (2 of 2 - 13+ 2-dose series) 04/11/2012 03/14/2012 Regular Well Visit/Exam 18-64 08/26/2020 08/27/2019 Dilated Eye Exam 12/04/2020 12/05/2019 Depression Screening 05/28/2021 05/28/2020 Albumin Creatinine Ratio, Urine 05/20/2022 05/20/2021, 06/04/2019 Lipid Panel 06/03/2023 06/02/2022, 07/2021, 05/28/2020, Additional history exists Influenza Vaccine (#1) 2023 11/30/2010 Hemoglobin A1C 01/13/2024 07/13/2023, 12/0 10/2022, 01/22/2023, Additional history exists TSH Level 08/24/2024 08/25/2023, 12/0 10/2022, 01/21/2023, Additional history exists eGFR 08/25/2024 08/26/2023, 08/14, 08/25/2023, Additional history exists DTaP/Tdap/Td Vaccine (8 - Td or Tdap) 01/31/2030 02/01/2020, 03/14/2012, 10/18/2001, Additional history exists Hepatitis C Screening Completed 08/27/2019 HPV Vaccines Aged Out No longer eligi ble based on patient's age to complete this topic Goals Goal Patient Goal Type Associated Problems Recent Progress Patient-Stated? Author Med Mgmt Goal - Patient will understand importance of following medication regimen and will take appropriate steps to maintain regimen ACO Care Management No Maddy Stephen Note: Problem: Medication management Interventions: - Assess [...] ability to manage diabetes TTW Case Management Kim Kumar, RN Note: Problem: Knowledge deficit - Diabetes Interventions: - Provide educational materials specific to patient needs. - Follow up within 1-2 weeks of mailing to review materials and ensure patient understands information provided. Procedures Procedure Name Priority Date/Time Associated Diagnosis Comments EGFR Routine 08/26/2023 9:06 PM CDT THYROID FUNCTION CASCADE STAT 08/25/2023 12:40 AM CDT POCT HEMOGLOBIN A1C Routine 07/13/2023 3 :56 PM CDT Type 1 diabetes mellitus with hyperglycemia (HCC) LIPID PANEL WITH DIRECT LDL Routine 06/02/2022 1:54 PM CDT Type 1 diabetes mellitus with hyperglycemia (HCC) ALBUMIN CREATININE RATIO, URINE Routine 05/20/2021 12:08 PM CDT Type 1 diabetes mellitus with hyperglycemia (HCC) HEPATITIS C ANTIBODY Routine 08/27/2019 11:57 AM CDT Positive test from Last 3 Months or Most Recently Relevant to Health Maintenance Results * eGFR (08/26/2023 9:06 PM CDT) eGFR >90 >=60 mL/min/1. 73 m2 Comment: Interpretive Data Reference Interval Normal ?>/= 90 mL/min/1.73m2 Mildly decreased* ? 60 - 89 mL/min/1.73m2 Mildly to moderately decreased ?45 - 59 mL/min/1.73m2 Moderately to severely decreased ??30 - 44 mL/min/1.73m2 Severely decreased ?15 - 29 mL/min/1.73m2 Kidney Failure ?< 15 ??mL/min/1.73m2 *Relative to young adult level Estimated glomerular filtration rate is determined by the 2020 CKD-EPI equation recommended by the National Kidney Foundation (A Unifying Approach to GFR Estimation: Recommendations of the NKF-ASK Task Force on Reassessing the Inclusion of Race in Diagnosing Kidney Disease, JASN 2020). The CKD-EPI equation should not be used for patients with unstable renal function and has not been validated in children and those over 70. Current interpretive data was last reviewed 2020. Blood 08/26/2023 9:06 PM CDT 08/26/2023 9:18 PM CDT us Rajinder Jackson NP LAB BLOOD ORDERABLES Final Resu lt [facility] Department [place] [address] * Thyroid Function [place] (08/25/2023 12:40 AM CDT) TSH 0.64 0.30 - 4.20 mcIUnit/mL Blood 08/25/2023 12:4 0 AM CDT 08/25/2023 12:59 AM CDT us James Harding MD LAB BLOOD ORDERABLES Final Re sult [facility] Department [place] [address] * POCT hemoglobin A1c (07/13/2023 3:56 PM CDT) Hemoglobin A1C, POC 7.8 % Blood 07/13/2023 3:56 PM CDT Chadwick Fair MD PhD POINT OF CARE TEST ORDERABLES Final Result * (ABNORMAL) Lipid panel with direct LDL (06/02/2022 1:54 PM CDT) Triglycerides 226(H) <150 mg/dL [facility] Comment: Desirable: <150 mg/dL, fasting <175 mg/dL, non-fasting Persistently elevated triglycerides may enhance atherosclerotic cardiovascular disease. Total Cholesterol 180 <200 mg/dL [facility] Total HDL-C Direct 55 >50 mg/dL [facility] Non-HDL cholesterol 125 <220 mg/dL [facility] LDL Direct 115 <190 mg/dL [facility] Blood 06/02/2022 1:54 PM CDT 06/02/2022 2:18 PM CDT Narrative [facility] - 06/02/2022 3:07 PM CDT Current interpretive data was last updated January 16, 2021. Chadwick Fair MD PhD LAB BLOOD ORDERABL ES Final Result [facility] * Albumin Creatinine Ratio, Urine (05/20/2021 12:08 PM CDT) Albumin Ur <12.0 mg/L [facility] Comment: Interpretive Data No reference range established. Current interpretive data was last revised 2018. Creatinine Ur 157.2 mg/dL [facility] Comment: Interpretive Data No reference range established. Current interpretive data was last revised 2018. Albumin Creatinine Ratio, Ur <8 1 - 29 mg/g [facility] Urine 05/20/2021 12:0 8 PM CDT 05/20/2021 12:42 PM CDT Chadwick Fair MD PhD LAB URINE ORDERABL ES Final Result Performing Organization Address [facility] Co de Phone Number [facility] Department [place] [address] * Hepatitis C antibody (08/27/2019 11:57 AM CDT) Pathologist [facility] Hep C Ab NONREACT NONREACTIVE [facility] Comment: Siemens [employer] using MATT (chemiluminescent immunoassay) technology. NONREACTIVE: Antibodies to Hepatitis C not detected. This does not exclude early acute Hepatitis C infection, possibility of exposure to Hepatitis C, antibodies below detection limit, or to lack of antibody reactivity to the antigen used in this assay. EQUIVOCAL: Antibodies to Hepatitis C may or may not be present. ??Sample to be confirmed by real-time PCR method. REACTIVE: Antibodies to Hepatitis C detected.Sample to be confirmed by real-time PCR method. Blood specimen (specimen) 08/27/2019 11:57 AM CDT 08/27/2019 12:38 PM CDT Narrative Resulting Agency Comment CLI us Yris SALAZAR LAB MICROBIOLOGY - GEN ERAL ORDERABLES Final Result [facility] [address] [place], [place] [id number] [place] [address] from Last 3 Months or Most Recently Relevant to Health Maintenance Insurance [facility] Advance Directives For more information, please contact: [phone] * Full Code (Latest Code Status on File) Date Activated Date Inactivated Comments 08/26/2023 11:20 AM 08/27/2023 6:43 PM * Full Code Date Activated Date Inactivated Comments 01/22/2023 12:26 PM 01/23/2023 5:51 PM * Full Code Date Activated Date Inactivated Comments 04/09/2020 7:51 AM 04/12/2020 2:02 AM * Full Code Date Activated Date Inactivated Comments 04/08/2020 6:30 PM 04/09/2020 7:51 AM Full CPR in case of cardiopulmonary arrest * Full Code Date Activated Date Inactivated Comments 02/27/2020 10:51 AM 02/29/2020 8:26 PM Care Teams Assistant Credit Manager Relationship Specialty Start Date End Date Bhargav Jain MD [address] [address] PCP - General Family Medicine 02/24/22
--- OUTSIDE RECORDS SUMMARY | 2024-03-19 15:11 | XMS_ITS | Referral Summary ---
Author Organization [facility] Address [address] [place] [address] Care Team Providers Care Allergist/Pediatric Pulmonologist Name Role Phone Bhargav Jain MD Primary Care Provider [phone] Encounters Date Type Department Care Team Description 01/30/2024 Telephone [facility] Endocrinology Metabolism and Lipid [address] [facility] Floor [address], [address] [place] [address] Naya Marcus RMA from Last 3 Months Allergies Active Allergy Reactions Criticality Noted Date [...] AM urine and as directed 100 strip 3 Active insulin syringe-needle U-100 0.5 mL [...] 2 each 11 4 Active blood-glucose sensor (Positron Dynamics G7 Sensor) deviceIndications :E10.65 Z79.4 Use as [...] 04/25/2021 Assessment & Plan (04/25/2021 2:59 PM CLAIMS ASSISTANT): Ibuprofen 600 mg every 6 hours Muscle [...] CV/Pulm: Vital signs stable, within normal limits. [place] Asthma: Albuterol PRN, last needed inhaler 6 [...] managed with dexcom/pump. Insulin gtt PRN 6. [place] Asthma: Albuterol PRN, last needed inhaler 6 [...] (03/28/2020): Added automatically from request for surgery [id number] Thrombocytopenia affecting (CMS/HCC) 0 03/07/2020 Overview (03/28/2020): 02/26: plt 142 [...] has been receiving frequent GC/Chlamydia tests with [facility]. Most recent was negative in early November Plan: -- will change topical drops (gtts) to moxifloxacin (intolerant of polytrim, does not like ointment -- will give azithromycin 1g once -- conj culture taken today -- will contact [facility] -- RTC in 10 days Positive urine [...] DM diagnosed age 18 - Followed with [facility] - Managed on Lantus and Humalog - Labs: A1C 08/27/19 9.9%, Cr 0.5, normal LFTs, TSH wnl She always eats a 70 gram of carbs with her meals. CGM, Dexcom Log in information: [email or web address] User name: Rafael Password: [email or web address] Current Regimen 04/04/2020 12a-3a ??1.45 -- 1.5 [...] testing starting at 32 weeks (BPP at [place], NST at [facility]) -Delivery at 37-39 weeks depending on compliance and glycemic control. -Continue ASA for preeclampsia prevention Assessment & Plan (04/04/2020 10:44 AM CLAIMS ASSISTANT): BS log will be reviewed by M fellow following this appointment and Mitali will be notified of any changes. Assessment & Plan (03/07/2020 1:50 PM CLAIMS ASSISTANT): BS log reviewed by Dr. West, adjustments made above. Will continue weekly visits for insulin adjustments. Assessment & Plan (02/11/2020 7:59 PM CLAIMS ASSISTANT): Blood sugars over the last 4 days [...] episodes. Assessment & Plan (02/01/2020 8:29 PM CLAIMS ASSISTANT): BS log reviewed today by Dr. Phipps and changes made. Assessment & Plan (09/19/2019 3:33 PM CDT): Will continue current regimen and add medication for nausea. Rx placed today. Recommend she call our office with lows <65. She will keep a good log and will review in 1 week. [facility] 09/04[facility] Overview (03/21/2020): - Previously smoked 5 [...] unspecified trimester 08/29/2019 Overview (04/04/2020): [x] Full M Care Referring provided: Dr. 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 Previously was told she made too [...] use. Assessment & Plan (01/22/2023 10:45 AM CLAIMS ASSISTANT): --Continue PRN albuterol inhaler Depression 06/16/2012 Overview (03/04/2020): Mood ok, decided to not start Zoloft. No SI/HI. Will let us know if she desires additional support. - Continue to monitor mood Assessment & Plan (08/25/2023 4:15 AM CDT): History of depression and ADHD: Continue home Abilify, venlafaxine, Adderall Assessment & Plan (01/22/2023 10:45 AM CLAIMS ASSISTANT): --Continue home doses of Abilify and venlafaxine Resolved Problems Problem Noted Date Diagnosed Date Resolved Date Diabetic ketoacidosis withou t coma associated with type 1 diabetes mellitus ([facility]) 05/23/2022 07/13/2023 Assessment & Plan (01/23/2023 11:09 AM CLAIMS ASSISTANT): A1c 9.6% in January 2023. Patient presents [...] (03/28/2020): Added automatically from request for surgery [id number] Type 1 diabetes mellitus wit h complication ([facility]) 11/08/2018 02/11/2020 Overview (06/04/2019): Current regimen: Lantus 20, humalog 10 tid HbA1c Lab Results Component Value Date HGBA1C 13.0 (H) 11/07/2018 BP At goal Not at goal BP Readings from Last 1 Encounters: 06/04/19 119/74 Microalbumin/Creatinine No results found for: MICROALBUR, [id number] ACEi/ARB prescribed: lisinopril 2.5 Antiplatelet therapy prescribed no due to patient age ASCVD risk score The ASCVD Risk score (Lewis CAMERON Jr., et al., 2013) failed to calculate for the following reasons: The 2013 ASCVD risk score is only valid for ages 40 to 79 Foot/extremity exam loss of sensation under big toe Retinopathy seen by eye doctor within past year Ancillary Support : obiee report developer, DM educator and pharmacist Assessment & Plan [...] now- can consider starting it as outpatient Immunizations Name Administration Dates Next Due DTaP 10/18/2001,,07/04/1996,05/02/1996,0 03/02/1996 Hep A, Adult 10/25/2019 Hep B, Adolescent or Pediatric 10/18/2001,1996,02/21/1996 Influenza, Trivalent, IM (MDV) 11/30/2010 MMR 04/11/2020(Deferred: No longer needed),10/18/2001,04/25/1997 OPV 10/18/2001,08/24/1997,05/02/1996 ,03/02/1996 Tdap 02/01/2020,03/14/2012 Varicella 03/14/2012 Social History Tobacco Use Types Packs/Day Years Used Date Smoking Tobacco: Former Cigarettes Smokeless Tobacco: Never Tobacco Cessation:Counseling Given: Not Answered Comments:one pack per week Alcohol Use Standard Drinks/Week Comments Never 0 (1 standard drink = 0.6 oz pur e alcohol) [facility] Answer Date Recorded In the past 12 months has e manetch, gas, oil, or water [employer] threatened to shut off services in your [...] week 08/25/2023 How often do you attend [facility] or zoroastrian services? Never 08/25/2023 Do you belong to any clubs o r organizations such as jew groups, unions, fraternal or athletic groups, or [...] medical care, and heating? Somewhat hard 08/25/2023 [facility] - Occupational Stress Questionnaire Answer Date Recorded [...] in a custodial (including now)? No 05/24/2022 [place] Depression Scale Answer Date Recorded [place] Depression Scale Total 0 05/28/2020 The thought [...] any time in the past 12 m [facility], were you homeless or living in a [...] on file Legal Sex Female 9:20 AM CLAIMS ASSISTANT Gender Identity Not on file Sexual Orientation Not on file Last Filed Vital Signs Vital Sign Reading [...] 08/25/2023 10:20 PM CDT Plan of Treatment Not on file Goals Goal Patient Goal Type Associated Problems [...] NP LAB BLOOD ORDERABLES Final Resu lt [facility] Department of Laboratories [place], [place] [id number] * Thyroid Function [place] (08/25/2023 12:40 AM CDT) TSH 0.64 0.30 - 4.20 mcIUnit/mL Blood 08/25/2023 12:4 0 AM CDT 08/25/2023 12:59 AM CDT us James Harding MD LAB BLOOD ORDERABLES Final Re sult Performing Organization Address City/[facility]/ZIP Co de Phone Number [facility] Department [place] [address] * POCT hemoglobin A1c (07/13/2023 3:56 PM [...] PM CDT 06/02/2022 2:18 PM CDT Narrative [facility] - 06/02/2022 3:07 PM CDT Current interpretive data was last updated January 16, 2021. Chadwick Fair MD PhD LAB BLOOD ORDERABL ES Final Result [facility] * Albumin Creatinine Ratio, Urine (05/20/2021 12:08 PM CDT) Albumin Ur <12.0 mg/L [facility] Comment: Interpretive Data No reference range established. Current interpretive data was last revised 2018. Creatinine Ur 157.2 mg/dL [facility] Comment: Interpretive Data No reference range established. Current interpretive data was last revised 2018. Albumin Creatinine Ratio, Ur <8 1 - 29 mg/g [facility] Urine 05/20/2021 12:0 8 PM CDT 05/20/2021 12:42 PM CDT us Chadwick Fair MD PhD LAB URINE ORDERABL ES Final Result Performing Organization Address City/[facility]/ZIP Co de Phone Number [facility] Department [place] [address] * Hepatitis C antibody (08/27/2019 11:57 AM CDT) Hep C Ab NONREACT NONREACTIVE [facility] Comment: Siemens [employer] using HENRY (chemiluminescent immunoassay) technology. NONREACTIVE: Antibodies to Hepatitis [...] PM CDT Narrative Resulting Agency Comment CLI Yris SALAZAR LAB MICROBIOLOGY - GEN ERAL ORDERABLES Final Result Performing Organization Address City/[facility]/ZIP Co de Phone Number [facility] [address] [phone] from Last 3 Months or Most Recently Relevant to Health Maintenance [place] [address] [place] [address] [facility] [id number] [place] [address] [facility] Advance Directives For more information, please contact: [phone] * Full Code (Latest Code Status on [...] 10:51 AM 02/29/2020 8:26 PM Care Teams Allergist/Pediatric Pulmonologist Relationship Specialty Start Date End Date Bhargav Jain MD [address] [address] PCP - General Family Medicine 02/24/22
--- OUTSIDE RECORDS SUMMARY | 2024-03-19 15:11 | XMS_ITS | Clinical Summary ---
Author Organization [facility] Address [facility] [facility] [place] [address] [place] [address] Care Team Providers Care Engineering Lecturer Name Role Phone Ary Kwan Primary Care Provider [phone] Allergies Active Allergy Reactions Criticality Noted Date Comments Sulfamethoxazole-Trimethoprim Hives 2017 Fluoxetine Swelling 03/10/2017 Medications hydrocodone-cruz taminophen 5-325 MG tablet Take 1 tablet by mouth every 6 (six) hours as needed for Pain. 15 tablet 09/27/2018 Active guaifenesin-cod eine (CHERATUSSIN AC) 100-10 MG/5ML syrupIndication s:Cough Take 10 mLs by mouth every 4 (four) hours as needed. Indications: Cough 120 mL 05/04/2019 Active cyclobenzaprine 10 MG tablet Take 1 tablet (10 mg total) by mouth 3 (three) times daily as needed. 15 tablet 07/20/2021 Active doxycycline hyclate (VIBRAMYCIN) 100 MG capsule Take 1 capsule (100 mg total) by mouth 2 (two) times daily. 20 capsule 05/24/2023 Active Family History Relation Status Comments Mother THYROID Social History Tobacco Use Types Packs/Day Years Used Date Smoking Tobacco: Former Cigarettes Q uit: 2020 Smokeless Tobacco: Never Tobacco Cessation:Counseling Given: Not Answered Alcohol Use Standard Drinks/Week Comments Yes 0 (1 standard drink = 0.6 oz pur e alcohol) social Comments No Sex and Gender Information Value Date Recorded Sex Assigned at Not on file Legal Sex Female 7:17 PM CDT Gender Identity Not on file Sexual Orientation Not on file Last Filed Vital Signs Vital Sign Reading Time Taken Comments Blood Pressure 136/101 05/24/2023 3:57 PM CDT Pulse 99 05/24/2023 3:57 PM CDT Temperature 36.4 ??C (97.6 ??F) 05/24/2023 3:57 PM CD T Respiratory Rate 18 05/24/2023 3:57 PM CDT Oxygen Saturation 99% 05/24/2023 3:57 PM CDT Inhaled Oxygen Concentration - - Weight 94.8 kg (209 lb) 05/24/2023 3:57 PM CDT Height 182.9 cm (6') 05/24/2023 3:57 PM CDT Body Mass Index 28.35 05/24/2023 3:57 PM CDT Plan of Treatment Health Maintenance Due Date Last Done Comments Cervical Cancer Screening Pap Smear (Age 21 to 29) Every 3 Years 1995 Cervical Cancer Screening 1995 Annual Physical 12/19/1998 Hepatitis C 12/19/2013 COVID-19 Vaccine ( season) 2023 Influenza Adult (#1) 2023 11/30/2010 DTaP, Tdap and Td Vaccines (8 - Td or Tdap) 01/31/2030 02/01/2020, 03/14/2012, 10/18/2001, Additional history exists Hepatitis B Vaccines Completed 10/18/2001, 11/20/1996, 02/21/1996 HPV Vaccines Aged Out No longer eligi ble based on patient's age to complete this topic Meningococcal B Vaccine Aged Out No l onger eligible based on patient's age to complete this topic Meningococcal Vaccine Aged Out No delia alon eligible based on patient's age to complete this topic Pneumococcal Vaccine: Pediatrics (0 to 5 Years) and At-Risk Patients (6 to 64 Years) Aged Out No longer eligible based on patient's age to complete this topic RSV Immunizations Under 20 Months Aged Out No longer eligible based on patient's age to complete this topic Insurance [employer] Advance Directives Documents on File Type Date Recorded Patient Emergency Dispatcher Expl anation Legal Documents 10/22/2021 5:25 PM COMPLETE D BILLING REQUEST FOR ATT[facility] Care Teams Engineering Lecturer Relationship Specialty Start Date End Date Ary Kwan APNP [address] [id number] PCP - General Nurse Practitioner Family 05/24/23
[2024-03-19 15:12] LABS: Add Urine Microscopic? YES; Appearance Urine Clear (Clear); Bacteria Urine None Seen /hpf; Bilirubin Urine Negative (Negative); Blood Urine Negative (Negative); Color Urine Yellow (Yellow); Glucose Urine UA Negative (Negative); Ketones Urine Negative (Negative); Leukocyte Esterase Ur 2+ LEU/UL (Negative); Nitrate Urine Negative (Negative); Non Pathogenic Casts 0-2; Protein Urine Negative (Negative); RBC Urine 0-2 /hpf (0-2); Specific Grav Ur 1.008 (1.001-1.035); Squamous Epithelial Cell Urine Few /hpf (Few); Urobilinogen Urine 0.2 mg/dL (<2.0)
[2024-03-19 15:14] LABS: Influenza A QL RT-PCR Negative (Negative); Influenza B QL RT-PCR Negative (Negative); RSV RNA, RT-PCR Negative (Negative); SARS-CoV-2 RNA PCR Negative (Negative)
== END 2024-03-19 14:17 | disposition home or self-care (01) ==
LOC: ANHLAB 14:17
PROVIDERS: PCP Nurse Practitioner Family; Visit Provider Nurse Practitioner Family
DX: R09.89 Other specified symptoms and signs involving the circulatory and respiratory systems (principal); E10.9 Type 1 diabetes mellitus without complications; Z20.822 Contact with and (suspected) exposure to COVID-19
CPT/HCPCS: 81001; 87637

== ENCOUNTER 2024-03-24 03:47 | Emergency (ER) | payer OTHER, SELFPAY ==
[2024-03-24 04:00] VITALS: BP 122/89; PULSE 104; RESP 20; TEMP 36.8; O2SAT 100
[2024-03-24 04:15] VITALS: BP 122/89; PULSE 95; RESP 15; O2SAT 100
[2024-03-24 04:16] VITALS: PULSE 96
[2024-03-24 04:22] LABS: Basophils Percent Auto 0.3 % (0.2-1.2); Eosinophils Percent Auto 0.5 % (0-4.4); Hematocrit 43.5 % (37.0-47.0); Hemoglobin 14.8 g/dL (12.0-15.0); Immature Granulocyte Absolute 0.02 K/mm3 (0.00-0.031); Immature Granulocyte Percent A 0.3 % (0-0.5); Lymphocytes Absolute Auto 1.34 K/mm3 (0.9-3.2); Lymphocytes Percent Auto 21.9 % (18.3-44.2); Mean Corpuscular Hemoglobin 30.8 pg (26-34); Mean Corpuscular Volume 90.4 fl (80-100); Monocytes Absolute Auto 0.3 K/mm3 (0.1-0.6); Monocytes Percent Auto 4.2 % (2.6-8.5); Neutrophils Absolute Auto 4.5 K/mm3 (1.3-6.7); Neutrophils Percent Auto 72.8 % (45.5-73.1); Platelet Count Result 200 k/mm3 (150-375); Red Blood Count 4.81 M/mm3 (4.2-5.4); Red Cell Distribution Width 12.5 % (11.5-14.5); White Blood Count 6.1 K/mm3 (4.5-10.0)
[2024-03-24 04:33] LABS: Alanine Aminotransferase 16 U/L (6-35); Albumin Level 4.5 g/dL (3.5-5.1); Alkaline Phosphatase 113 U/L (38-126); Anion Gap 12 mmol/L (4-12); Aspartate Amino Transferase 18 U/L (14-36); Blood Urea Nitrogen 14 mg/dL (7-17); Calcium 9.4 mg/dL (8.4-10.2); Carbon Dioxide 26 mmol/L (22-30); Chloride 103 mmol/L (98-107); Estimated CRCL calculation 158 ml/min; Estimated Glomerular Filt Rate > 60; Glucose 206 mg/dL (65-110); Potassium 3.5 mmol/L (3.4-5.0); Sodium 141 mmol/L (137-145)
[2024-03-24 05:15] VITALS: BP 116/81; PULSE 91; RESP 14; O2SAT 99
--- NOTE | 2024-03-24 06:30 | ED_ITS ---
HPI - General Adult General Chief complaint: Recheck/Abnormal Lab/Rx Stated complaint: Low BS/ETOH History of Present Illness HPI narrative: This is a 20-year-old female presenting with episode of low blood sugar. She was having several alcoholic beverages last night when she accidentally gave herself some insulin and her blood sugar dropped. EMS was called to give her some D10 and a sandwich to eat. A this time she has no complaints. Patient has a Dexcom is monitoring her sugars. Related Data Home Medications ?Medication ?Instructions ?Recorded ?Confirmed ?Last Taken ?Type insulin lispro 100 unit/mL 1 sliding scale dose subcut 10/21/20 02/21/24 Unknown History subcutaneous cartridge (Humalog USEASDIRECTD U-100 Insulin) blood-glucose sensor (Dexcom G7 08/07/23 02/21/24 Unknown History Sensor device) blood-glucose transmitter (Dexcom 08/07/23 02/21/24 Unknown History G6 Transmitter device) Allergies Allergy/AdvReac Type Severity Reaction Status Date / Time sulfamethoxazole AdvReac Mild Hives Verified 02/21/24 14:47 FLUOXETINE HCL AdvReac Mild Hives Uncoded 02/21/24 14:47 PMFSH Past Medical History Medical History Right otitis media Acute sinusitis Left elbow pain Infected dental caries Insomnia Periodontal disease Lymph nodes enlarged Sensation of knee instability Myalgia Cervicalgia Right knee pain Vitamin D deficiency, unspecified (05/20/21) Level low at 22 with goal greater than 30 on 05/20/2021. Chronic depression BMI 28.0-28.9,adult Recovering alcoholic ADHD ADD (attention deficit disorder) Encounter to establish care Wellness examination B12 deficiency Level normal at 1108 on 05/20/2021. Hemoglobin 13.5. Type 1 diabetes Glucose 138 with hemoglobin A1c 10.1 on 05/20/2021. Anemia Hemoglobin 13.5 with folic acid greater than 20, vitamin B12 1108, iron 77 with 36% saturation and ferritin 60 on 05/20/2021. Anxiety Thyroid disorder Diabetes Asthma Family History Family History Father Alcoholism Hypertension Mother Cancer Depression Anxiety Thyroid disorder Other Asthma Social History Social History Smoking packs per day: 0.5 Smoking cigarettes per day: 10.0 Years smoked: 9 Smoking pack-years: 4.50 Smoking status: Former smoker Alcohol intake: current Alcohol use details: socially Substance use: current Substance use type: marijuana Lack of Transportation: No Lack of Food: Never True Current Housing: I Have Housing Concerned About Future Housing: No Difficulty Paying Gas/Electric Bills: No Difficulty Paying for Meds: No Currently Unemployed: No Education: High School Diploma/GED Difficulty w/ Childcare or Family Care: No Exam 2 Narrative: APPEARANCE: No apparent distress. Head: atraumatic. EYES: EOMI, NOSE: Atraumatic NECK: Trachea midline RESPIRATORY: No increased rate of breathing CTAB CARDIOVASCULAR: RRR, ABDOMINAL: Non-distended MUSCULOSKELETAl: No obvious deformities NEURO: Alert. Moving 4/4 extremities SKIN:: Warm, dry. Normal color PSYCHIATRIC: Normal affect Course Vital Signs Vital signs: Vital Signs Temperature 98.2 F 03/24/24 04:00 Pulse Rate 104 H 03/24/24 04:00 Respiratory Rate 20 03/24/24 04:00 Blood Pressure 122/89 03/24/24 04:00 Pulse Oximetry 100 03/24/24 04:00 Oxygen Delivery Room Air 03/24/24 04:00 Temperature 98.2 F 03/24/24 04:00 Pulse Rate 96 03/24/24 04:16 Respiratory Rate 20 03/24/24 04:00 Blood Pressure 122/89 03/24/24 04:00 Pulse Oximetry 100 03/24/24 04:00 Oxygen Delivery Room Air 03/24/24 04:00 Medical Decision Making [facility] Narrative Medical decision making narrative: -Course: 28-year-old female presenting after an episode of low blood sugar after giving herself insulin. She was given dextrose and fed a sandwich by EMS. Blood sugars were monitored during her stay via her Dexcom and they have not been low. Lab work is within normal limits without evidence of DKA/HHS. Patient is clinically sober. She was discharged. Given return precautions. Vital Signs Vital Signs: Vital Signs Temperature 98.2 F 03/24/24 04:00 Pulse Rate 104 H 03/24/24 04:00 Respiratory Rate 20 03/24/24 04:00 Blood Pressure 122/89 03/24/24 04:00 Pulse Oximetry 100 03/24/24 04:00 Oxygen Delivery Room Air 03/24/24 04:00 Temperature 98.2 F 03/24/24 04:00 Pulse Rate 96 03/24/24 04:16 Respiratory Rate 20 03/24/24 04:00 Blood Pressure 122/89 03/24/24 04:00 Pulse Oximetry 100 03/24/24 04:00 Oxygen Delivery Room Air 03/24/24 04:00 Lab Data 03/24/24 04:17 03/24/24 04:17 Labs: Lab Results 03/24/24 Range/Units 04:17 WBC 6.1 (4.5-10.0) K/mm3 RBC 4.81 (4.2-5.4) M/mm3 Hgb 14.8 (12.0-15.0) g/dL Hct 43.5 (37.0-47.0) % MCV 90.4 (80-100) fl MCH 30.8 (26-34) pg MCHC 34.0 (32-36) g/dl RDW 12.5 (11.5-14.5) % Plt Count 200 (150-375) k/mm3 MPV 11.0 H (7.4-10.4) fl Immature Gran % (Auto) 0.3 (0-0.5) % Neut % (Auto) 72.8 (45.5-73.1) % Lymph % (Auto) 21.9 (18.3-44.2) % [place] % (Auto) 4.2 (2.6-8.5) % Eos % (Auto) 0.5 (0-4.4) % Baso % (Auto) 0.3 (0.2-1.2) % Lymph # (Auto) 1.34 (0.9-3.2) K/mm3 [place] # (Auto) 0.3 (0.1-0.6) K/mm3 Eos # (Auto) 0.0 (0-0.3) K/mm3 Baso # (Auto) 0.0 (0.0-0.1) K/mm3 Abs Immat Gran (auto) 0.02 (0.00-0.031) K/mm3 Absolute Neuts (auto) 4.5 (1.3-6.7) K/mm3 Absolute Nucleated RBC 0.000 (0.0-0.012) K/mm3 Nucleated RBC % 0.0 (0.0-0.2) % Sodium 141 (137-145) mmol/L Potassium 3.5 (3.4-5.0) mmol/L Chloride 103 (98-107) mmol/L Carbon Dioxide 26 (22-30) mmol/L Anion Gap 12 (4-12) mmol/L BUN 14 (7-17) mg/dL Creatinine 0.59 L (0.7-1.0) mg/dL Estim Creat Clear Calc 158 ml/min Estimated GFR > 60 (59 - ) Glucose 206 H (65-110) mg/dL Calcium 9.4 (8.4-10.2) mg/dL Total Bilirubin 1.0 (0.2-1.3) mg/dL AST 18 (14-36) U/L ALT 16 (6-35) U/L Alkaline Phosphatase 113 (38-126) U/L Total Protein 8.0 (6.3-8.2) g/dL Albumin 4.5 (3.5-5.1) g/dL Discharge Plan Discharge Clinical Impression: Hypoglycemia Patient Disposition: Home, Self-Care Condition: Stable Instructions: Antibiotic Form, Hypoglycemia in a Person with Diabetes (DC) Additional Instructions: Please continue to monitor your blood sugars with her Dexcom an insulin pump. Return if you develop any new or worsening symptoms. Please be careful when drinking alcohol. Patient Language: Sami Prescriptions: No Action (DME) Dexcom G7 Sensor Device MISCELLANEOUS (DME) Dexcom G6 Transmitter Device MISCELLANEOUS Humalog U-100 Insulin 100 unit/mL Cartridge 1 sliding scale dose SUBCUT USEASDIRECTD amoxicillin-pot clavulanate 875-125 mg tablet 1 tablet PO Q12H Qty: 20 0RF fluconazole 150 mg tablet 150 mg PO .Q3 days Qty: 2 0RF aripiprazole [Abilify] 10 mg tablet 10 mg PO DAILY Qty: 30 11RF dextroamphetamine-amphetamine [Adderall] 15 mg tablet 15 mg PO BID Qty: 60 0RF Rx Instructions: Take 4-6 hours apart azithromycin 250 mg tablet See Rx Instructions PO .COMPLEX Qty: 6 0RF Rx Instructions: For 250 mg dose pack: take 500 mg today (day 1), then 250 mg for 4 days (days 2-5) PO albuterol sulfate [Ventolin HFA] 90 mcg/actuation HFA aerosol inhaler 1 - 2 inh inhalation Q4H PRN (Reason: shortness of breath or wheezing) Qty: 8.5 0RF Follow-up/Referrals: Ary Kwan, MEDIC TECHNICIAN [Primary Care Provider] -
[2024-03-24 06:35] VITALS: BP 125/91; PULSE 100; RESP 15; O2SAT 100
--- OUTSIDE RECORDS SUMMARY | 2024-03-24 06:38 | XMS_ITS | Clinical Summary ---
Author Organization [facility] Address [address] [place] [address] Care Team Providers Care Service Assistant Name Role Phone Ary Kwan Primary Care Provider [phone] Allergies Active Allergy Reactions Criticality Noted Date [...] 99 05/24/2023 3:57 PM CDT Temperature 36.4 C (97.6 F) 05/24/2023 3:57 PM CDT Respiratory Rate 18 05/24/2023 3:57 PM CDT [...] patient's age to complete this topic Insurance [employer] Advance Directives Documents on File Type Date Recorded Patient Technical Rep Expl anation Legal Documents 10/22/2021 5:25 PM COMPLETE D BILLING REQUEST FOR [facility] Care Teams Service Assistant Relationship Specialty Start Date End Date Ary Kwan APNP [address] [address] PCP - General Nurse Practitioner Family 05/24/23
--- OUTSIDE RECORDS SUMMARY | 2024-03-24 06:39 | XMS_ITS | Encounter Summary ---
Author Organization [facility] Address [address] [facility] [address] [place] [address] Phone Care Team Providers Care Blocker And Cutter Contact Lens Name Role Phone No, Physician Primary Care Provider Clinic, [facility]. Primary Care Provider No, Physician Primary Care Provider No, Physician Primary Care Provider Clinic, [facility]. Primary Care Provider No, Physician Primary Care Provider Clinic, [facility]. Primary Care Provider No, Physician Primary Care Provider Clinic, [facility]. Primary Care Provider No, Physician Primary Care Provider Clinic, [facility]. Primary Care Provider No, Physician Primary Care Provider Clinic, [facility]. Primary Care Provider Clinic, [facility]. Primary Care Provider Clinic, [facility]. Primary Care Provider No, Physician Primary Care Provider No, Physician Primary Care Provider Clinic, [facility]. Primary Care Provider No, Physician Primary Care Provider Ary Kwan NP Primary Care Provider [phone] Clinic, [facility]. Primary Care Provider [phone] Bhargav Jain MD Primary Care Provider [phone] Encounter Details Date Type Department Care Team (Late st Contact Info) Description 12/05/2019 Ophth Exam [facility] [address] [place] [address] 1st [place] [id number] Vimal Stuart MD [address] [facility] [phone] [address] [place] [address] Social History Tobacco Use Types Packs/Day Years [...] on file Legal Sex Female 9:20 AM RN OCCUPATIONAL Gender Identity Not on file Sexual Orientation [...] Normal Normal Periphery Normal Normal Care Teams Blocker And Cutter Contact Lens Relationship Specialty Start Date End Date No, Physician PCP - General 12/03/19 12/08/19 Clinic, [facility] [address] [place] [address] PCP - General 12/09/19 12/16/19 No, Physician PCP - General 12/18/19 12/20/19 No, Physician PCP - General 12/17/19 12/17/19 Clinic, [facility] [address] [place] [address] PCP - General 12/21/19 12/30/19 No, Physician PCP - General 12/31/19 12/31/19 Clinic, [facility] [address] [place] [address] PCP - General 01/01/20 01/24/20 No, Physician PCP - General 01/25/20 02/01/20 Clinic, [facility] [address] [place] [address] PCP - General 02/02/20 02/03/20 No, Physician PCP - General 02/04/20 03/07/20 Clinic, [facility] [address] [place] [address] PCP - General 03/08/20 03/10/20 No, Physician PCP - General 03/16/20 03/19/20 Clinic, [facility] [address] [place] [address] PCP - General 03/20/20 03/27/20 [facility], [facility] [employer] [place] [place] [address] PCP - General 03/28/20 04/03/20 [facility], [facility] [address] [place] [address] PCP - General 04/05/20 04/07/20 No, Physician PCP - General 04/08/20 04/08/20 No, Physician PCP - General 04/09/20 05/28/20 Clinic, [facility] [address] [place] [address] PCP - General 05/29/20 06/05/20 No, Physician PCP - General 03/30/21 03/30/21 Ary Kwan NP [address] [place] [address] PCP - General Family Medicine 03/31/21 05/20/21 Clinic, [facility] [address] [place] [address] PCP - General 05/21/21 02/23/22 Bhargav Jain MD [address] [address] PCP - General Family Medicine 02/24/22 documented as of this encounter
--- OUTSIDE RECORDS SUMMARY | 2024-03-24 06:39 | XMS_ITS | Referral Summary ---
Author Organization [facility] Address [address] [place] [address] Care Team Providers Care Manager Drive Name Role Phone Bhargav Jain MD Primary Care Provider [phone] Encounters Date Type Department Care Team Description 01/30/2024 Telephone [facility] Endocrinology Metabolism and Lipid [address] [facility] Floor [address], [address] [place] [address] Naya Marcus RMA from Last [...] 2 each 11 4 Active blood-glucose sensor (zEconomy G7 Sensor) deviceIndications :E10.65 Z79.4 Use as [...] 04/25/2021 Assessment & Plan (04/25/2021 2:59 PM OB/GYN): Ibuprofen 600 mg every 6 hours Muscle [...] CV/Pulm: Vital signs stable, within normal limits. [place] Asthma: Albuterol PRN, last needed inhaler 6 [...] managed with dexcom/pump. Insulin gtt PRN 6. [place] Asthma: Albuterol PRN, last needed inhaler 6 [...] (03/28/2020): Added automatically from request for surgery [id number] Thrombocytopenia affecting (CMS/HCC) 0 03/07/2020 Overview (03/28/2020): [...] has been receiving frequent GC/Chlamydia tests with TRAFFIC ADMINISTRATOR. Most recent was negative in early November Plan: -- will change topical drops (gtts) to moxifloxacin (intolerant of polytrim, does not like ointment -- will give azithromycin 1g once -- conj culture taken today -- will contact TRAFFIC ADMINISTRATOR -- RTC in 10 days Positive urine [...] her meals. CGM, Dexcom Log in information: [email or web address] User name: Rafael Password: [email or web address] Current Regimen 04/04/2020 12a-3a 1.45 -- 1.5 3a-12p 1.5 12p-6p 1.55 -- 1.6 6p-12a 1.6 -- 1.65 CF: 1:20 I:C 1:3.5; 12p-5p 1:2.5 Active insulin 3 hours Target BG 100 -Using dexcom clarity CGM -Previously counseled, aware of BS goals -We will plan to monitor blood glucose log weekly for adjustment -Anatomic survey and echo complete and normal -Continue serial growth ultrasounds- (AGA 80% 02/25/20) -Start twice weekly testing starting at 32 weeks (BPP at [place], NST at [facility]) -Delivery at 37-39 weeks depending on compliance and glycemic control. -Continue ASA for preeclampsia prevention Assessment & Plan (04/04/2020 10:44 AM OB/GYN): BS log will be reviewed by M fellow following this appointment and Mitali will be notified of any changes. Assessment & Plan (03/07/2020 1:50 PM OB/GYN): BS log reviewed by Dr. West, adjustments made above. Will continue weekly visits for insulin adjustments. Assessment & Plan (02/11/2020 7:59 PM OB/GYN): Blood sugars over the last 4 days [...] episodes. Assessment & Plan (02/01/2020 8:29 PM OB/GYN): BS log reviewed today by Dr. Phipps and changes made. Assessment & Plan (09/19/2019 3:33 PM CDT): Will continue current regimen and add medication for nausea. Rx placed today. Recommend she call our office with lows <65. She will keep a good log and will review in 1 week. Tobacco smoking affecting in [facility] 09/04/2019 Overview (03/21/2020): - Previously smoked 5 [...] provided: Dr. 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 Discussed plan with Dr. Wset and will schedule C/S delivery at 39 weeks and repeat growth at 38w6d prior to delivery. Patient is ok with C/S delivery if indicated. 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 Previously was told she made too [...] use. Assessment & Plan (01/22/2023 10:45 AM OB/GYN): --Continue PRN albuterol inhaler Depression 06/16/2012 Overview (03/04/2020): Mood ok, decided to not start Zoloft. No SI/HI. Will let us know if she desires additional support. - Continue to monitor mood Assessment & Plan (08/25/2023 4:15 AM CDT): History of depression and ADHD: Continue home Abilify, venlafaxine, Adderall Assessment & Plan (01/22/2023 10:45 AM OB/GYN): --Continue home doses of Abilify and venlafaxine Resolved Problems Problem Noted Date Diagnosed Date Resolved Date Diabetic ketoacidosis withou t coma associated with type 1 diabetes mellitus ([facility]) 05/23/2022 07/13/2023 Assessment & Plan (01/23/2023 11:09 AM OB/GYN): A1c 9.6% in January 2023. Patient presents [...] (03/28/2020): Added automatically from request for surgery [id number] Type 1 diabetes mellitus wit h complication ([facility]) 11/08/2018 02/11/2020 Overview (06/04/2019): Current regimen: Lantus 20, humalog 10 tid HbA1c Lab Results Component Value Date HGBA1C 13.0 (H) 11/07/2018 BP At goal Not at goal BP Readings from Last 1 Encounters: 06/04/19 119/74 Microalbumin/Creatinine No results found for: MICROALBUR, [id number] ACEi/ARB prescribed: lisinopril 2.5 Antiplatelet therapy prescribed no due to patient age ASCVD risk score The ASCVD Risk score ([place] BARNES Jr., et al., 2013) failed to calculate for the following reasons: The 2013 ASCVD risk score is only valid for ages 40 to 79 Foot/extremity exam loss of sensation under big toe Retinopathy seen by eye doctor within past year Ancillary Support : manufacturing controls engineer, DM educator and pharmacist Assessment & Plan [...] Immunizations Name Administration Dates Next Due DTaP 10/18/2001, 8,07/04/1996,05/02/1996,0 03/02/1996 Hep A, Adult 10/25/2019 Hep B, [...] drink = 0.6 oz pur e alcohol) [facility] [employer] Answer Date Recorded In the past 12 months has TAPP, gas, oil, or water [employer] threatened to shut off services in your [...] 08/25/2023 How often do you attend chur or yarsani services? Never 08/25/2023 Do you belong to any clubs o r organizations such as rastafarian groups, unions, fraternal or athletic groups, or [...] medical care, and heating? Somewhat hard 08/25/2023 [facility] [place] [facility] - Occupational Stress [...] place to sleep or slept in a long-term (including now)? No 05/24/2022 [place] Depression Scale Answer Date Recorded [place] Depression Scale Total 0 05/28/2020 The thought [...] any time in the past 12 m [facility], were you homeless or living in a long-term (including now)? No 08/25/2023 Personal Safety Answer Date Recorded Have you ever been in or are you currently in a harmful physical or emotional relationship or is someone making you feel afraid or unsafe? Denies 08/25/2023 Comments Unknown Sex and Gender Information Value Date Recorded Sex Assigned at Not on file Legal Sex Female 9:20 AM OB/GYN Gender Identity Not on file Sexual Orientation Not on file Last Filed Vital Signs Vital Sign Reading Time Taken Comments Blood Pressure 131/87 08/27/2023 11:30 AM CDT Pulse 91 08/27/2023 11:30 AM CDT Temperature 36.7 C (98.1 F) 08/27/2023 11:30 AM CDT Respiratory Rate 18 08/27/2023 11:3 [...] m2 Comment: Interpretive Data Reference Interval Normal >/= 90 mL/min/1.73m2 Mildly decreased* 60 - 89 mL/min/1.73m2 Mildly to moderately decreased 45 - 59 mL/min/1.73m2 Moderately to severely decreased 30 - 44 mL/min/1.73m2 Severely decreased 15 - 29 mL/min/1.73m2 Kidney Failure < 15 mL/min/1.73m2 *Relative to young adult level Estimated glomerular [...] LAB BLOOD ORDERABLES Final Resu lt [facility] Department [place] [place] [address] * Thyroid Function Foster (08/25/2023 12:40 AM CDT) TSH 0.64 0.30 - 4.20 mcIUnit/mL Blood 08/25/2023 12:4 0 AM CDT 08/25/2023 12:59 AM CDT us James Harding MD LAB BLOOD ORDERABLES Final Re sult [facility] [place] [address] * POCT hemoglobin A1c (07/13/2023 3:56 PM [...] PM CDT 06/02/2022 2:18 PM CDT Narrative [facility] - 06/02/2022 3:07 PM CDT Current interpretive data was last updated January 16, 2021. Chadwick Fair MD PhD LAB BLOOD ORDERABL ES Final Result [facility] * Albumin Creatinine Ratio, Urine (05/20/2021 12:08 PM CDT) Albumin Ur <12.0 mg/L [facility] Comment: Interpretive Data No reference range established. Current interpretive data was last revised 2018. Creatinine Ur 157.2 mg/dL [facility] Comment: Interpretive Data No reference range established. Current interpretive data was last revised 2018. Albumin Creatinine Ratio, Ur <8 1 - 29 mg/g [facility] Urine 05/20/2021 12:0 8 PM CDT 05/20/2021 12:42 PM CDT Chadwick Fair MD PhD LAB URINE ORDERABL ES Final Result [facility] Department [place] [address] * Hepatitis C antibody (08/27/2019 11:57 AM CDT) Hep C Ab NONREACT NONREACTIVE [facility] Comment: Siemens CentaurXP using HENRY (chemiluminescent immunoassay) technology. NONREACTIVE: Antibodies to Hepatitis C not detected. This does not exclude early acute Hepatitis C infection, possibility of exposure to Hepatitis C, antibodies below detection limit, or to lack of antibody reactivity to the antigen used in this assay. EQUIVOCAL: Antibodies to Hepatitis C may or may not be present. Sample to be confirmed by real-time PCR method. REACTIVE: Antibodies to Hepatitis C detected.Sample to be confirmed by real-time PCR method. Blood specimen (specimen) 08/27/2019 11:57 AM CDT 08/27/2019 12:38 PM CDT Narrative Resulting Agency Comment CLI Yris SALAZAR LAB MICROBIOLOGY - GEN ERAL ORDERABLES Final Result [facility] [address] [phone] from Last 3 Months or Most Recently Relevant to Health Maintenance Insurance [facility] Advance Directives For more information, please contact: [phone] * Full Code (Latest Code Status on [...] 10:51 AM 02/29/2020 8:[address] Relationship Specialty Start Date End Date Bhargav Jain MD [address] [address] PCP - General Family Medicine 02/24/22
--- OUTSIDE RECORDS SUMMARY | 2024-03-24 06:39 | XMS_ITS | Clinical Summary ---
Author Organization [facility] Address [address] [place] [address] Care Team Providers Care Programming Specialist Name Role Phone Bhargav Jain MD Primary Care Provider [phone] Allergies Active Allergy Reactions Criticality Noted Date [...] 04/25/2021 Assessment & Plan (04/25/2021 2:59 PM MANUFACTURING QUALITY INSPECTOR): Ibuprofen 600 mg every 6 hours Muscle [...] CV/Pulm: Vital signs stable, within normal limits. CT Asthma: Albuterol PRN, last needed inhaler 6 [...] managed with dexcom/pump. Insulin gtt PRN 6. CT Asthma: Albuterol PRN, last needed inhaler 6 [...] (03/28/2020): Added automatically from request for surgery [id number] Thrombocytopenia affecting ([facility] 0 03/07/2020 Overview (03/28/2020): 02/26: plt 142 [...] has been receiving frequent GC/Chlamydia tests with HEATER OPERATOR. Most recent was negative in early November Plan: -- will change topical drops (gtts) to moxifloxacin (intolerant of polytrim, does not like ointment -- will give azithromycin 1g once -- conj culture taken today -- will contact HEATER OPERATOR -- RTC in 10 days Positive [...] her meals. CGM, Dexcom Log in information: [email or web address] User name: Rafael Password: [email or web address] Current Regimen 04/04/2020 12a-3a 1.45 -- 1.5 [...] testing starting at 32 weeks (BPP at [place], NST at [facility]) -Delivery at 37-39 weeks depending on compliance and glycemic control. -Continue ASA for preeclampsia prevention Assessment & Plan (04/04/2020 10:44 AM MANUFACTURING QUALITY INSPECTOR): BS log will be reviewed by MFM fellow following this appointment and Mitali will be notified of any changes. Assessment & Plan (03/07/2020 1:50 PM MANUFACTURING QUALITY INSPECTOR): BS log reviewed by Dr. West, adjustments made above. Will continue weekly visits for insulin adjustments. Assessment & Plan (02/11/2020 7:59 PM MANUFACTURING QUALITY INSPECTOR): Blood sugars over the last 4 days [...] episodes. Assessment & Plan (02/01/2020 8:29 PM MANUFACTURING QUALITY INSPECTOR): BS log reviewed today by Dr. Phipps and changes made. Assessment & Plan (09/19/2019 3:33 PM CDT): Will continue current regimen and add medication for nausea. Rx placed today. Recommend she call our office with lows <65. She will keep a good log and will review in 1 week. Tobacco [facility] 09/04/2019 Overview (03/21/2020): - Previously smoked 5 [...] provided: Dr. Samuels's Referring Provider: Brandi Peres [phone] [x] Dating Criteria: LMP 06/10/19 ALYSSA 03/16/20 [...] Nexplanon [x] Method of feeding: breast [x] Dietary Assistant: [x] PP Depression Discussed: Autoimmune disorder 07/27/2019 [...] use. Assessment & Plan (01/22/2023 10:45 AM MANUFACTURING QUALITY INSPECTOR): --Continue PRN albuterol inhaler Depression 06/16/2012 Overview (03/04/2020): Mood ok, decided to not start Zoloft. No SI/HI. Will let us know if she desires additional support. - Continue to monitor mood Assessment & Plan (08/25/2023 4:15 AM CDT): History of depression and ADHD: Continue home Abilify, venlafaxine, Adderall Assessment & Plan (01/22/2023 10:45 AM MANUFACTURING QUALITY INSPECTOR): --Continue home doses of Abilify and venlafaxine Resolved Problems Problem Noted Date Diagnosed Date Resolved Date Diabetic ketoacidosis withou t coma associated with type 1 diabetes mellitus ([facility] 05/23/2022 07/13/2023 Assessment & Plan (01/23/2023 11:09 AM MANUFACTURING QUALITY INSPECTOR): A1c 9.6% in January 2023. Patient presents [...] (03/28/2020): Added automatically from request for surgery [id number] Type 1 diabetes mellitus wit h complication ([facility] 11/08/2018 02/11/2020 Overview (06/04/2019): Current regimen: Lantus 20, humalog 10 tid HbA1c Lab Results Component Value Date HGBA1C 13.0 (H) 11/07/2018 BP At goal Not at goal BP Readings from Last 1 Encounters: 06/04/19 119/74 Microalbumin/Creatinine No results found for: MICROALBUR, [id number] ACEi/ARB prescribed: lisinopril 2.5 Antiplatelet therapy prescribed [...] doctor within past year Ancillary Support : manager of school, DM educator and pharmacist Assessment & Plan [...] Type Department Care Team Description 01/30/2024 Telephone [facility] Endocrinology Metabolism and Lipid [address], [address] [place] [address] Amrit, Crystal, RMA from Last 3 Months Immunizations Name [...] 03/16/2020 Added automatically from request for surgery [id number] Family History Medical History Relation Name Comments [...] drink = 0.6 oz pur e alcohol) [facility] [employer](IN[employer])ities Answer Date Recorded In the past 12 months has e [employer], gas, oil, or water [employer] threatened to shut off services in your [...] often do you attend chur ch or spiritism services? Never 08/25/2023 Do you belong to any clubs o r organizations such as anglican groups, unions, fraternal or athletic groups, or [...] medical care, and heating? Somewhat hard 08/25/2023 [facility] - Occupational Stress Questionnaire Answer [...] in a long-term (including now)? No 05/24/2022 Clinton Depression Scale Answer Date Recorded Clinton Depression Scale Total 0 05/28/2020 The thought [...] any time in the past 12 m [facility], were you homeless or living in [...] on file Legal Sex Female 9:20 AM MANUFACTURING QUALITY INSPECTOR Gender Identity Not on file Sexual Orientation [...] al N Livin g 8 9 CELESTE WILLIS, Diomedes Mckeon MD Complications:Shoulder Dysto matt Delivery Location:[facility] Main C ampus ([facility]LD) Last Filed Vital Signs Vital Sign [...] (#1) 2023 11/30/2010 Hemoglobin A1C 01/13/2024 07/13/2023, 10/2022, 01/22/2023, Additional history exists TSH Level 08/24/2024 08/25/2023, 1210/2022, 01/21/2023, Additional history exists eGFR 08/25/2024 08/26/2023, [...] 9:06 PM CDT 08/26/2023 9:18 PM CDT Rajinder Jackson NP LAB BLOOD ORDERABLES Final Resu lt [facility] Department of Laboratories [place], [place] [id number] * Thyroid Function [place] (08/25/2023 12:40 AM CDT) TSH 0.64 0.30 - 4.20 mcIUnit/mL Blood 08/25/2023 12:4 0 AM CDT 08/25/2023 12:59 AM CDT James Hrading MD LAB BLOOD ORDERABLES Final Re sult Performing Organization Address [facility]/State/ZIP Co de Phone Number [facility] [place] [address] * POCT hemoglobin A1c (07/13/2023 3:56 PM CDT) Hemoglobin A1C, POC 7.8 % Blood 07/13/2023 3:56 PM CDT us Chadwick Fair MD PhD POINT OF CARE [...] PM CDT 06/02/2022 2:18 PM CDT Narrative [facility] CORE LAB - 06/02/2022 3:07 PM CDT Current interpretive data was last updated January 16, 2021. Chadwick Fair MD PhD LAB BLOOD ORDERABL ES Final Result [facility] CORE [facility] * Albumin Creatinine Ratio, Urine (05/20/2021 12:08 PM CDT) Albumin Ur <12.0 mg/L [facility] Comment: Interpretive Data No reference range established. Current interpretive data was last revised 2018. Creatinine Ur 157.2 mg/dL [facility] Comment: Interpretive Data No reference range established. Current interpretive data was last revised 2018. Albumin Creatinine Ratio, Ur <8 1 - 29 mg/g [facility] Urine 05/20/2021 12:0 8 PM CDT 05/20/2021 12:42 PM CDT us Chadwick Fair MD PhD LAB URINE ORDERABL ES Final Result [facility] [place] [address] * Hepatitis C antibody (08/27/2019 11:57 AM CDT) Hep C Ab NONREACT NONREACTIVE [facility] Comment: Siemens CentaurXP using MATT (chemiluminescent immunoassay) technology. NONREACTIVE: Antibodies [...] Narrative Resulting Agency Comment CLI us Yris Frias CNM LAB MICROBIOLOGY - GEN ERAL ORDERABLES Final Result [facility] [address] [place] [address], [facility] [phone] from Last 3 Months or Most Recently Relevant to Health Maintenance Insurance [address] [place] [address] [facility] Advance Directives For more information, please contact: [phone] * Full Code (Latest Code Status on [...] 10:51 AM 02/29/2020 8:26 PM Care Teams Programming Specialist Relationship Specialty Start Date End Date Bhargav Jain MD [address] [address] PCP - General Family Medicine 02/24/22
[2024-03-24 06:56] LABS: Glucose Point of Care 313 mg/dl (65-105)
== END 2024-03-24 07:01 | disposition home or self-care (01) ==
LOC: ANHED 06:36
PROVIDERS: Emergency Provider Emergency Medicine; PCP Nurse Practitioner Family
DX: E10.649 Type 1 diabetes mellitus with hypoglycemia without coma (principal); E55.9 Vitamin D deficiency, unspecified; E53.8 Deficiency of other specified B group vitamins; E07.9 Disorder of thyroid, unspecified; J45.909 Unspecified asthma, uncomplicated; F90.9 Attention-deficit hyperactivity disorder, unspecified type; F32.A Depression, unspecified; Z96.41 Presence of insulin pump (external) (internal); Z87.891 Personal history of nicotine dependence; Z86.2 Personal history of diseases of the blood and blood-forming organs and certain disorders involving the immune mechanism; Z79.4 Long term (current) use of insulin; Z79.899 Other long term (current) drug therapy
CPT/HCPCS: 36415; 80053; 82948; 85025; 99283

== ENCOUNTER 2024-08-02 11:27 | Emergency (ER) | payer OTHER, SELFPAY ==
[2024-08-02 11:30] VITALS: BP 134/100; PULSE 96; RESP 18; TEMP 36.9; O2SAT 100
[2024-08-02 11:37] LABS: Glucose Point of Care 169 mg/dl (65-105)
--- OUTSIDE RECORDS SUMMARY | 2024-08-02 12:19 | XMS_ITS | Encounter Summary ---
Author Organization [facility] Address [address] [facility] [address] [place] [address] Phone Care Team Providers Care Plywood Factory Worker Name Role Phone No, Physician Primary Care Provider Clinic, [facility]. Primary Care Provider No, Physician Primary Care Provider No, Physician Primary Care Provider Clinic, [facility]. Primary Care Provider No, Physician Primary Care Provider Clinic, [facility]. Primary Care Provider No, Physician Primary Care Provider Clinic, [facility]. Primary Care Provider No, Physician Primary Care Provider Clinic, [facility]. Primary Care Provider No, Physician Primary Care Provider Clinic, [facility]. Primary Care Provider Clinic, [facility]. Primary Care Provider Clinic, [facility]. Primary Care Provider No, Physician Primary Care Provider No, Physician Primary Care Provider Clinic, [facility]. Primary Care Provider No, Physician Primary Care Provider Ary Kwan NP Primary Care Provider [phone] Clinic, [facility]. Primary Care Provider [phone] Bhargav Jain MD Primary Care Provider [phone] Encounter Details Date Type Department Care Team (Late st Contact Info) Description 12/05/2019 Ophth Exam [facility] Ophthalmology [address] [place] [address] 1st [place] [id number] Vimal Stuart MD [address] [facility] [phone] [address] [place] [address] Social History Tobacco Use Types Packs/Day Years [...] on file Legal Sex Female 9:20 AM TRUANT OFFICER Gender Identity Not on file Sexual Orientation [...] Normal Normal Periphery Normal Normal Care Teams Plywood Factory Worker Relationship Specialty Start Date End Date No, Physician PCP - General 12/03/19 12/08/19 Clinic, [facility] [address] [address] [place] [address] PCP - General 12/09/19 12/16/19 No, Physician PCP - General 12/18/19 12/20/19 No, Physician PCP - General 12/17/19 12/17/19 Clinic, [facility] [address] [address] [place] [address] PCP - General 12/21/19 12/30/19 No, Physician PCP - General 12/31/19 12/31/19 Clinic, [facility] [address] [place] [address] PCP - General 01/01/20 01/24/20 No, Physician PCP - General 01/25/20 02/01/20 Clinic, [facility] [address] [place] [address] PCP - General 02/02/20 02/03/20 No, Physician PCP - General 02/04/20 03/07/20 Clinic, [facility] [address] [place] [address] PCP - General 03/08/20 03/10/20 No, Physician PCP - General 03/16/20 03/19/20 Clinic, [facility] [address] [place] [address] PCP - General 03/20/20 03/27/20 [facility], [address] [address] [place] [place] [address] PCP - General 03/28/20 04/03/20 [facility], [address] [place] [address] PCP - General 04/05/20 04/07/20 No, Physician PCP - General 04/08/20 04/08/20 No, Physician PCP - General 04/09/20 05/28/20 Clinic, [facility] [address] [place] [address] PCP - General 05/29/20 06/05/20 No, Physician PCP - General 03/30/21 03/30/21 Ary Kwan NP [address] [place] [address] PCP - General Family Medicine 03/31/21 05/20/21 Clinic, [facility] [address] [place] [address] PCP - General 05/21/21 02/23/22 Bhargav Jain MD [address] [address] PCP - General Family Medicine 02/24/22 documented as of this encounter
--- OUTSIDE RECORDS SUMMARY | 2024-08-02 12:19 | XMS_ITS | Clinical Summary ---
Author Organization [facility] Address [address] [place] [address] Care Team Providers Care Lean Six Sigma Senior Specialist Name Role Phone Ary Kwan Primary Care Provider [phone] Allergies Active Allergy Reactions Criticality Noted Date [...] C 12/19/2013 COVID-19 Vaccine ( season) 2023 DTaP, Tdap and Td Vaccines (8 - [...] 5 Years) and At-Risk Patients (6 to 49 Years) Aged Out No longer eligible based on patient's age to complete this topic RSV Immunizations Under 20 Months Aged Out No longer eligible based on patient's age to complete this topic Insurance AGRA Advance Directives Documents on File Type Date Recorded Patient Printing Gray Cloth Tender Expl anation Legal Documents 10/22/2021 5:25 PM COMPLETE D BILLING REQUEST FOR ATTJackie FLETCHER [employer]M Care Teams Lean Six Sigma Senior Specialist Relationship Specialty Start Date End Date Ary Kwan APNP [address] [facility] [address] [address] PCP - General Nurse Practitioner Family 05/24/23
--- OUTSIDE RECORDS SUMMARY | 2024-08-02 12:19 | XMS_ITS | Referral Summary ---
Author Organization [facility] Address [address] [place] [address] Care Team Providers Care Net Coordinator Name Role Phone Bhargav Jain MD Primary Care Provider [phone] Encounters Date Type Department Care Team Description 07/18/2024 3:40 PM CDT Office Visit [facility] Endocrinology Metabolism and Lipid [address] [facility] 13th [place] [address] [place] [address] Chadwick Fair MD PhD Type 1 diabetes mellitus with hyperglycemia (HCC) (Primary Dx); Insulin pump titration; Abnormal thyroid function test; Overweight (BMI 25.0-29.9); Class 1 obesity due to excess calories with serious comorbidity in adult, unspecified BMI 07/10/2024 11:01 PM CDT - 07/11/2024 4:35 AM CDT Emergency [facility] Emergency Department [address] [place] [address] Sivan Awad MD Hyperglycemia (Primary Dx); Chest pain, unspecified type; Ketosis (HCC); Type 1 diabetes mellitus with hyperglycemia (HCC) Discharge Disposition: Discharge to home or self care 07/10/2024 Telephone [facility] Endocrinology Metabolism and Lipid [address] [facility] [address] [facility] [address], [address] [place] [address] Naya Marcus RMA Hyperglycemia 05/16/2024 Telephone [facility] Endocrinology Metabolism and Lipid [address] [facility] 5th [place] [address] [place] [address] Helen Head RN insulin/ apt from Last 3 Months Allergies Active Allergy [...] as directed when off pump. 100 each 3 Active Additional Information Patient not taking.Reported on 07/18/2024 insulin glargine (BASAGLAR) 100 unit/mL (3 mL) [...] nostril as needed (severe hypoglycemia) 2 each 4 Active blood-glucose sensor (Spacedeckcom G7 Sensor) deviceIndications :E10.65 Z79.4 Use as directed to monitor blood glucose. 9 each 4 Active triamcinolone (KENALOG) 0.1 % ointment [...] TO 80 UNITS VIA INSULIN PUMP DAILY 30 mL 1 5 Active Active Problems Problem Noted Date Diagnosed [...] 04/25/2021 Assessment & Plan (04/25/2021 2:59 PM DIALYSIS TECH): Ibuprofen 600 mg every 6 hours Muscle relaxant as needed at night. Alternate heat and ice. Stretches Follow up with your provider if you do not improve. Class 1 obesity due to exces s calories with serious comorbidity in adult 06/06/2020 care following vaginal delivery 04/09 Overview (04/11/2020): # ID: Afebrile. No signs/symptoms of infection. COVID-19 negative. H/o STIs: Diagnosed with trich and chlamydia in this , s/p treatment and MARLEN except trich (tested too early). Plan to MARLEN trich PP, took tx on 03/15/20 # Heme: EBL 350 mL. Hemodynamically stable. # CV/Pulm: Vital signs stable, within normal limits. DC Asthma: Albuterol PRN, last needed inhaler 6 [...] managed with dexcom/pump. Insulin gtt PRN 6. DC Asthma: Albuterol PRN, last needed inhaler 6 [...] (03/28/2020): Added automatically from request for surgery [id number] Thrombocytopenia affecting 03/07/2020 Overview (03/28/2020): 02/26: plt 142 Continue [...] has been receiving frequent GC/Chlamydia tests with [employer]. Most recent was negative in early November Plan: -- will change topical drops (gtts) to moxifloxacin (intolerant of polytrim, does not like ointment -- will give azithromycin 1g once -- conj culture taken today -- will contact [employer] -- RTC in 10 days Positive urine [...] DM diagnosed age 18 - Followed with Beatrice Singleton - Managed on Lantus and Humalog - Labs: A1C 08/27/19 9.9%, Cr 0.5, normal LFTs, TSH wnl She always eats a 70 gram of carbs with her meals. CGM, [employer] Log in information: [email or web address] User name: Rafael Password: [email or web address] Current Regimen 04/04/2020 12a-3a 1.45 -- 1.5 3a-12p 1.5 12p-6p 1.55 -- 1.6 6p-12a 1.6 -- 1.65 CF: 1:20 I:C 1:3.5; 12p-5p 1:2.5 Active insulin 3 hours Target BG 100 -Using dexcom EXPO CGM -Previously counseled, aware of BS goals -We will plan to monitor blood glucose log weekly for adjustment -Anatomic survey and echo complete and normal -Continue serial growth ultrasounds- (AGA 80% 02/25/20) -Start twice weekly testing starting at 32 weeks (BPP at [place], NST at [facility]) -Delivery at 37-39 weeks depending on compliance and glycemic control. -Continue ASA for preeclampsia prevention Assessment & Plan (04/04/2020 10:44 AM DIALYSIS TECH): BS log will be reviewed by MFM fellow following this appointment and Mitali will be notified of any changes. Assessment & Plan (03/07/2020 1:50 PM DIALYSIS TECH): BS log reviewed by Dr. West, adjustments made above. Will continue weekly visits for insulin adjustments. Assessment & Plan (02/11/2020 7:59 PM DIALYSIS TECH): Blood sugars over the last 4 days [...] episodes. Assessment & Plan (02/01/2020 8:29 PM DIALYSIS TECH): BS log reviewed today by Dr. Phipps and changes made. Assessment & Plan (09/19/2019 3:33 PM CDT): Will continue current regimen and add medication for nausea. Rx placed today. Recommend she call our office with lows <65. She will keep a good log and will review in 1 week. Tobacco smoking affecting in [facility] 09/04/2019 Overview (03/21/2020): - Previously smoked 5 [...] unspecified trimester 08/29/2019 Overview (04/04/2020): [x] Full MFM Care Referring provided: Dr. 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 Previously was told she made too [...] use. Assessment & Plan (01/22/2023 10:45 AM DIALYSIS TECH): --Continue PRN albuterol inhaler Depression 06/16/2012 Overview (03/04/2020): Mood ok, decided to not start Zoloft. No SI/HI. Will let us know if she desires additional support. - Continue to monitor mood Assessment & Plan (08/25/2023 4:15 AM CDT): History of depression and ADHD: Continue home joyce Rodriguezxine, Adderall Assessment & Plan (01/22/2023 10:45 AM DIALYSIS TECH): --Continue home doses of Abilify and venlafaxine Resolved Problems Problem Noted Date Diagnosed Date Resolved Date Diabetic ketoacidosis withou t coma associated with type 1 diabetes mellitus 05/23/2022 07/13/2023 Assessment & Plan (01/23/2023 11:09 AM DIALYSIS TECH): A1c 9.6% in January 2023. Patient presents [...] reinitiation of insulin pump, and saw patient 1210 AM with plan made Pre-existing type 1 diabetes mellitus during , antepartum 03/16/2020 07/13/2023 Overview (03/28/2020): Added automatically from request for surgery [id number] Type 1 diabetes mellitus with complication 11/08/2018 02/11/2020 Overview (06/04/2019): Current regimen: Lantus 20, humalog 10 tid HbA1c Lab Results Component Value Date HGBA1C 13.0 (H) 11/07/2018 BP At goal Not at goal BP Readings from Last 1 Encounters: 06/04/19 119/74 Microalbumin/Creatinine No results found for: MICROALBUR, [id number] ACEi/ARB prescribed: lisinopril 2.5 Antiplatelet therapy prescribed no due to patient age ASCVD risk score The ASCVD Risk score (Dahindapetty BARNES Jr., et al., 2013) failed to calculate for the following reasons: The 2013 ASCVD risk score is only valid for ages 40 to 79 Foot/extremity exam loss of sensation under big toe Retinopathy seen by eye doctor within past year 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 Never 08/25/2023 Do you belong to any clubs o r organizations such as yazdanism groups, unions, fraternal or athletic groups, or [...] medical care, and heating? Somewhat hard 08/25/2023 [facility] of Occupat ional Health - Occupational Stress [...] place to sleep or slept in a alf (including now)? No 05/24/2022 [place] Depression Scale Answer Date Recorded [place] Depression Scale Total 0 05/28/2020 The thought [...] any time in the past [address] [facility], were you homeless or living in a alf (including now)? No 08/25/2023 Personal Safety Answer Date Recorded Have you ever been in or are you currently in a harmful physical or emotional relationship or is someone making you feel afraid or unsafe? Denies 07/10/2024 Comments Unknown Sex and Gender Information Value Date Recorded Sex Assigned at Not on file Legal Sex Female 9:20 AM DIALYSIS TECH Gender Identity Not on file Sexual Orientation Not on file Last Filed Vital Signs Vital Sign Reading Time Taken Comments Blood Pressure 108/73 07/18/2024 3:21 PM CDT Pulse 107 07/18/2024 3:21 PM CDT Temperature 36.8 C (98.2 F) 07/18/2024 3:21 PM CDT Respiratory Rate 20 07/10/2024 11:30 PM CDT Oxygen Saturation 100% 07/10/2024 11:30 PM CDT Inhaled Oxygen Concentration - - Weight 101.6 kg (224 lb) 07/18/2024 3:21 PM CDT Height 182.9 cm (6') 07/18/2024 3:21 PM CDT Body Mass Index 30.38 07/18/2024 3:21 PM CDT Plan of Treatment Not on [...] Procedure Name Priority Date/Time Associated Diagnosis Comments POCT HEMOGLOBIN A1C Routine 07/18/2024 3 :24 PM CDT Type 1 diabetes mellitus with hyperglycemia (HCC) POCT GLUCOSE 63737 Routine 07/18/2024 3: 24 PM CDT Type 1 diabetes mellitus with hyperglycemia (HCC) EGFR STAT 07/11/2024 3:31 AM CDT BASIC METABOLIC PANEL STAT 07/11/2024 3:31 AM CDT POCT GLUCOSE DEVICE Routine 07/11/2024 2 :57 AM CDT POCT GLUCOSE DEVICE Routine 07/11/2024 1 :45 AM CDT POCT GLUCOSE DEVICE Routine 07/11/2024 1 :25 AM CDT TROPONIN I HIGH-SENSITIVITY STAT 07/11/2024 1:25 AM CDT D-DIMER, QUANTITATIVE STAT 07/11/2024 1:25 AM CDT POCT GLUCOSE DEVICE Routine 07/10/2024 1 0:09 PM CDT XR CHEST PA LATERAL 2 VIEWS ED 07/10/2024 9:29 PM CDT EGFR STAT 07/10/2024 8:23 PM CDT DIFFERENTIAL AUTO STAT 07/10/2024 8:2 3 PM CDT COMPREHENSIVE METABOLIC PANEL STAT 07/10/2024 8:23 PM CDT CBC WITH AUTO DIFFERENTIAL STAT 07/10/2024 8:23 PM CDT POCT GLUCOSE DEVICE Routine 07/10/2024 8 :19 PM CDT ECG 12-LEAD STAT 07/10/2024 6:16 PM CDT POCT GLUCOSE DEVICE Routine 07/10/2024 6 :01 PM CDT POCT KETONE, BLOOD Routine 07/10/2024 6: 01 PM CDT THYROID FUNCTION CASCADE STAT 08/25/2023 12:40 AM CDT LIPID PANEL WITH DIRECT LDL Routine 06/02/2022 1:54 PM CDT Type 1 diabetes mellitus with hyperglycemia (HCC) ALBUMIN CREATININE RATIO, URINE Routine 05/20/2021 12:08 PM CDT Type 1 diabetes mellitus with hyperglycemia (HCC) HEPATITIS C ANTIBODY Routine 08/27/2019 11:57 AM CDT Positive test from Last 3 Months or Most Recently Relevant to Health Maintenance Results * POCT glucose (07/18/2024 3:24 PM CDT) Glucose Blood, POC 127 Normal Fasting 70 - 100, Random <200 mg/dL Blood 07/18/2024 3:24 PM CDT Chadwick Fair MD PhD POINT OF CARE TEST ORDERABLES Final Result * (ABNORMAL) POCT hemoglobin A1c (07/18/2024 3:24 PM CDT) Hemoglobin A1C, POC 7.4(A) 4.0 - 5.6 % Blood 07/18/2024 3:24 PM CDT Chadwick Fair MD PhD POINT OF CARE TEST ORDERABLES Final Result * eGFR (07/11/2024 3:31 AM CDT) eGFR >90 >=60 mL/min/1. 73 m2 [...] interpretive data was last reviewed 2020. Blood 07/11/2024 3:31 AM CDT 07/11/2024 3:43 AM CDT Geovanny Ruano MD LAB BLOOD ORDERABLES F inal Result [facility] [address] [facility] Department [place] [address] * Basic metabolic panel (07/11/2024 3:31 AM CDT) Sodium 136 135 - 145 mmol/L Potassium, pl 3.6 3.3 - 4.9 mmol/L [facility] Chloride 103 97 - 110 mmol/L [facility] CO2 25 22 - 32 mmol/L [facility] Anion gap 8 2 - 15 mmol/L [facility] BUN 11 6 - 25 mg/dL [facility] Creatinine 0.73 0.60 - 1.10 mg/dL [facility] Glucose 173 70 - 199 mg/dL [facility] Comment: Interpretive Data Fasting glucose >/= 126 mg/dl is diagnostic for diabetes. Fasting is defined as no caloric intake for at least 8 hours. Fasting glucose between 100 mg/dl to 125 mg/dl is diagnostic of prediabetes. In a patient with classic symptoms of hyperglycemia or hyperglycemic crisis, a random glucose >/= 200 mg/dl is diagnostic for diabetes. In the absence of unequivocal hyperglycemia, results should be confirmed by repeat testing. The classification and Diagnosis of Diabetes Diabetes Care 202; 46: S19-S40. Current interpretive data was last revised 2022. Calcium 9.1 8.5 - 10.3 mg/dL [facility] Blood 07/11/2024 3:31 AM CDT 07/11/2024 3:43 AM CDT Geovanny Ruano MD LAB BLOOD ORDERABLES F inal Result Performing Organization Address City/[facility]/ZIP Co de Phone Number [facility] [place] [address] * (ABNORMAL) POCT glucose (07/11/2024 2:57 AM CDT) Glucose, POC 207(H) 70 - 199 mg/dL Blood 07/11/2024 2:57 AM CDT 07/11/2024 2:57 AM CDT Sivan Awad MD LAB POCT ORDERABLES - DEVIC E Final Result Performing Organization Address [facility] Co de Phone Number [facility] [place] [employer] [place] [address] * (ABNORMAL) POCT glucose (07/11/2024 1:45 AM CDT) Glucose, POC 303(H) 70 - 199 mg/dL Comment:Glu2: RN/MD Notified Glucose comment 1 Glu2: RN/MD Notified [facility] Blood 07/11/2024 1:45 AM CDT 07/11/2024 1:45 AM CDT Sivan Awad MD LAB POCT ORDERABLES - DEVIC E Final Result Performing Organization Address [facility] [place] [address] * Troponin I high-sensitivity (07/11/2024 1:25 AM CDT) Trop I hs <4 <=17 ng/L Comment: Interpretive Data For further hscTnI resources including the diagnostic algorithm and an aid in interpretation, copy and paste this link: [email or web address].testcatalog.org/show/[email or web address] Current Interpretive Data last revised 2019. Blood 07/11/2024 1:25 AM CDT 07/11/2024 1:46 AM CDT Geovanny Ruano MD LAB BLOOD ORDERABLES F inal Result Performing Organization Address [facility] Co de Phone Number [facility] Department of [employer] [place] [address] * (ABNORMAL) POCT glucose (07/11/2024 1:25 AM CDT) Glucose, POC 305(H) 70 - 199 mg/dL Blood 07/11/2024 1:25 AM CDT 07/11/2024 1:25 AM CDT Sivan Awad MD LAB POCT ORDERABLES - DEVIC E Final Result Performing Organization Address [facility] de Phone Number [facility] [place] [place] [address] * D-dimer, quantitative (07/11/2024 1:25 AM CDT) D-Dimer <215 <=499 ng/mL FEU Comment: Interpretive data FDA approved the D-dimer, in conjunction with a low or moderate pretest probability score, to exclude venous thromboembolic events (VTE) (PE and DVT) in outpatients when the D-dimer result is < 500 ng/ml FEU. Evidence supports using an age-adjusted D-dimer cut-off for outpatients older than 50 (age x 10) to improve specificity without sacrificing sensitivity. Example: age 68, VTE cut-off 680 ng/ml FEU. References; Schlora HT et al. Brit Med J. 2013;346:f2492. Noreen et al. Annals Int Med. 2015;163:701-11. Current interpretive data was last revised on 2019. Blood 07/11/2024 1:25 AM CDT 07/11/2024 1:39 AM CDT us Geovanny Ruano MD LAB BLOOD ORDERABLES F inal Result Performing Organization Address [facility] Co de Phone Number [facility] Department [place] [address] * (ABNORMAL) POCT glucose (07/10/2024 10:09 PM CDT) Glucose, POC 300(H) 70 - 199 mg/dL Comment:Glu2: RN/MD Notified Glucose comment 1 Glu2: RN/MD Notified [facility] Blood 07/10/2024 10:0 9 PM CDT 07/10/2024 10:09 PM CDT us Notinfile Unknown LAB POCT ORDERABLES - DEVICE F inal Result Performing Organization Address [facility] de Phone Number [facility] Department [place] [address] * XR Chest Pa Lateral 2 Vw (07/10/2024 9:29 PM CDT) Anatomical Region Laterality Modality Body, Chest N/A Computed Radiogr aphy 07/10/2024 10:0 6 PM CDT Impressions 07/11/2024 9:08 AM CDT No comparison available. No pulmonary consolidation. No pleural effusion or pneumothorax. Normal cardiomediastinal silhouette. Dictated by: Stephanie James MD The radiology attending physician has personally reviewed this study, and had reviewed and/or edited this written report and agrees with it. Electronically signed by: Hannah Rico M.D. Narrative 07/11/2024 9:08 AM CDT EXAMINATION: 2 view chest radiograph Procedure Note Hannah Rico MD - 07/11/2024 EXAMINATION: 2 view chest radiograph IMPRESSION: No comparison available. No pulmonary consolidation. No pleural effusion or pneumothorax. Normal cardiomediastinal silhouette. Dictated by: Stephanie James MD The radiology attending physician has personally reviewed this study, and had reviewed and/or edited this written report and agrees with it. Electronically signed by: Hannah Rico M.D. Odalis Hassan MD IMG XR PROCEDURES Final R esult * eGFR (07/10/2024 8:23 PM CDT) eGFR >90 >=60 mL/min/1. 73 [...] of Race in Diagnosing Kidney Disease, JASN 202). The CKD-EPI equation should not be used for patients with unstable renal function and has not been validated in children and those over 70. Current interpretive data was last reviewed 2020. Blood 07/10/2024 8:23 PM CDT 07/10/2024 8:44 PM CDT Sivan Awad MD LAB BLOOD ORDERABLES Final Result [facility] [address] [facility] Department [place] [address] * Differential, auto (07/10/2024 8:23 PM CDT) Pathologist [facility] Neutrophil abs 5.63 1.50 - 6.50 K/cumm Imm gran abs 0.04 0.00 - 0.10 K/cumm [facility] Lymphocyte abs 2.83 0.80 - 3.30 K/cumm [facility] Monocyte abs 0.51 0.20 - 0.80 K/cumm [facility] Eosinophil abs 0.07 0.00 - 0.50 K/cumm [facility] Basophil abs 0.05 0.00 - 0.10 K/cumm [facility] Neutrophil pct 61.7 % [facility] Comment: Interpretive Data Percent cell count reference ranges are not reported, since discordance with absolute values may lead to misinterpretation of CBC data. Current Interpretive Data was last revised on 2017. Imm gran pct 0.4 % [facility] Comment: Interpretive Data Percent cell count reference ranges are not reported, since discordance with absolute values may lead to misinterpretation of CBC data. Current Interpretive Data was last revised on 2017. Lymphocyte pct 31.0 % [facility] Comment: Interpretive Data Percent cell count reference ranges are not reported, since discordance with absolute values may lead to misinterpretation of CBC data. Current Interpretive Data was last revised on 2017. Monocyte pct 5.6 % [facility] Comment: Interpretive Data Percent cell count reference ranges are not reported, since discordance with absolute values may lead to misinterpretation of CBC data. Current Interpretive Data was last revised on 2017. Eosinophil pct 0.8 % [facility] Comment: Interpretive Data Percent cell count reference ranges are not reported, since discordance with absolute values may lead to misinterpretation of CBC data. Current Interpretive Data was last revised on 2017. Basophil pct 0.5 % [facility] Comment: Interpretive Data Percent cell count reference ranges are not reported, since discordance with absolute values may lead to misinterpretation of CBC data. Current Interpretive Data was last revised on 2017. Blood 07/10/2024 8:23 PM CDT 07/10/2024 8:38 PM CDT Sivan Awad MD LAB BLOOD ORDERABLES Final Result [facility] Department [place] [address] * CBC with auto differential (07/10/2024 8:23 PM CDT) [facility] WBC 9.13 3.80 - 9.90 K/cumm Hgb 14.9 11.9 - 15.5 g/dL [facility] Hct 42.5 35.6 - 45.5 % [facility] Plt 214 150 - 400 K/cumm [facility] MPV 11.6 9.1 - 12.3 fL [facility] RBC 4.86 3.90 - 5.20 M/cumm [facility] MCV 87.4 81.3 - 96.4 fL [facility] MCH 30.7 27.1 - 33.3 pg [facility] MCHC 35.1 32.3 - 35.7 g/dL [facility] RDW CV 12.9 11.1 - 14.9 % [facility] RDW SD 41.1 35.7 - 48.1 fL [facility] NRBC abs 0.00 0.00 - 0.01 K/cumm [facility] Blood 07/10/2024 8:23 PM CDT 07/10/2024 8:38 PM CDT us Sivan Awad MD LAB BLOOD ORDERABLES Final Result Performing Organization Address City/[facility]/ZIP Co de Phone Number [facility] Department [place] [address] * (ABNORMAL) Comprehensive metabolic panel (07/10/2024 8:23 PM CDT) [facility] Sodium 138 135 - 145 mmol/L Potassium, pl 3.5 3.3 - 4.9 mmol/L [facility] Chloride 100 97 - 110 mmol/L [facility] CO2 21(L) 22 - 32 mmol/L [facility] Anion gap 17(H) 2 - 15 mmol/L [facility] BUN 11 6 - 25 mg/dL [facility] Creatinine 0.78 0.60 - 1.10 mg/dL [facility] Glucose 297(H) 70 - 199 mg/dL [facility] Comment: Interpretive Data Fasting glucose >/= 126 mg/dl is diagnostic for diabetes. Fasting is defined as no caloric intake for at least 8 hours. Fasting glucose between 100 mg/dl to 125 mg/dl is diagnostic of prediabetes. In a patient with classic symptoms of hyperglycemia or hyperglycemic crisis, a random glucose >/= 200 mg/dl is diagnostic for diabetes. In the absence of unequivocal hyperglycemia, results should be confirmed by repeat testing. The classification and Diagnosis of Diabetes Diabetes Care 202; 46: S19-S40. Current interpretive data was last revised 2022. Calcium 9.6 8.5 - 10.3 mg/dL [facility] Bilirubin, total 0.7 0.1 - 1.2 mg/dL [facility] Protein, pl 8.4 6.5 - 8.5 g/dL [facility] Albumin 4.7 3.5 - 5.0 g/dL [facility] Alk phos 111 40 - 130 Units/L [facility] ALT 14 7 - 45 Units/L [facility] AST 18 10 - 45 Units/L [facility] Blood 07/10/2024 8:23 PM CDT 07/10/2024 8:38 PM CDT us Sivan Awad MD LAB BLOOD ORDERABLES Final Result Performing Organization Address City/[facility] Co de Phone Number [facility] Department [place] [address] * (ABNORMAL) POCT glucose (07/10/2024 8:19 PM CDT) [facility] Glucose, POC 285(H) 70 - 199 mg/dL Blood 07/10/2024 8:19 PM CDT 07/10/2024 8:19 PM CDT us Notinfile Unknown LAB POCT ORDERABLES - DEVICE F inal Result Performing Organization Address City/State/[facility] Co de Phone Number [facility] Department [place] [address] * ECG 12-LEAD (07/10/2024 6:16 PM CDT) Narrative [facility] - 07/10/2024 6:16 PM CDT Good Martin MD 07/10/2024 6:16 PM ECG 12 lead Date/Time: 07/10/2024 6:16 PM Performed by: Good Martin MD Authorized by: Odalis Hassan MD Rate: ECG rate: Rate 102, narrow complex, regular, sinus, no STEMI, no change from prior on January 22, 2023 Procedure Note Good Martin MD - 07/10/2024 6:16 PM CDT Procedure ECG 12 lead Date/Time: 07/10/2024 6:16 PM Performed by: Good Martin MD Authorized by: Odalis Hassan MD Rate: ECG rate: Rate 102, narrow complex, regular, sinus, no STEMI, no changefrom prior on January 22, 2023 Good Martin MD 07/10/24 1816 us Sivan Awad MD ECG ORDERABLES Final Resul t Performing Organization Address [facility] Co de Phone Number [facility] * (ABNORMAL) POCT glucose (07/10/2024 6:01 PM CDT) Glucose, POC 249(H) 70 - 199 mg/dL Blood 07/10/2024 6:01 PM CDT 07/10/2024 6:01 PM CDT us Notinfile Unknown LAB POCT ORDERABLES - DEVICE F inal Result Performing Organization Address [facility] Co de Phone Number [facility]jit [facility] Department [place] [address] * (ABNORMAL) POCT ketone, blood (07/10/2024 6:01 PM CDT) Beta-Hydroxybut yrate, POC 0.6(H) 0.0 - 0.5 mmol/L Blood 07/10/2024 6:01 PM CDT 07/10/2024 6:01 PM CDT us Notinfile Unknown LAB POCT ORDERABLES - DEVICE F inal Result Performing Organization Address City/[facility]/ZIP Co de Phone Number [facility] Department [place] [address] * Thyroid Function [place] (08/25/2023 12:40 AM CDT) Pathologist [facility] [place] TSH 0.64 0.30 - 4.20 mcIUnit/mL Blood 08/25/2023 12:4 0 AM CDT 08/25/2023 12:59 AM CDT James Harding MD LAB BLOOD ORDERABLES Final Re sult Performing Organization Address [facility] Co de Phone Number [facility] Department [place] [address] * (ABNORMAL) Lipid panel with direct LDL (06/02/2022 1:54 PM CDT) Pathologist [facility] [place] Triglycerides 226(H) <150 mg/dL [facility] [...] PhD LAB BLOOD ORDERABL ES Final Result Performing Organization Address City/[facility]/ZIP Co de Phone Number [facility] C[facility] * Albumin Creatinine Ratio, Urine (05/20/2021 12:08 PM CDT) Albumin Ur <12.0 mg/L [facility] Comment: Interpretive Data No reference range established. Current interpretive data was last revised 2018. Creatinine Ur 157.2 mg/dL [facility] Comment: Interpretive Data No reference range established. Current interpretive data was last revised 2018. Albumin Creatinine Ratio, Ur <8 1 - 29 mg/g [facility] Urine 05/20/2021 12:0 8 PM CDT 05/20/2021 12:42 PM CDT Chadwick Fair MD PhD LAB URINE ORDERABL ES Final Result Performing Organization Address [facility] de Phone Number [facility] Department [place] [address] * Hepatitis C antibody (08/27/2019 11:57 AM CDT) Pathologist [facility] [place] Hep C Ab NONREACT NONREACTIVE [facility] Comment: [email or web address] using HENRY (chemiluminescent immunoassay) technology. NONREACTIVE: Antibodies [...] MICROBIOLOGY - GEN ERAL ORDERABLES Final Result [facility] [address] [place] [address], [facility] [phone] from Last 3 Months or Most Recently Relevant to Health Maintenance Insurance [facility] Advance Directives For more information, please contact: [phone] * Full Code (Latest Code Status on [...] 10:51 AM 02/29/2020 8:26 PM Care Teams Net Coordinator Relationship Specialty Start Date End Date Bhargav Jain MD [address] [address] PCP - General Family Medicine 02/24/22
--- OUTSIDE RECORDS SUMMARY | 2024-08-02 12:19 | XMS_ITS | Clinical Summary ---
Author Organization [facility] Address [address] [place] [address] Care Team Providers Care Sleep Lab Technologist Name Role Phone Bhargav Jain MD Primary Care Provider [phone] Allergies Active Allergy Reactions Criticality Noted Date [...] 04/25/2021 Assessment & Plan (04/25/2021 2:59 PM ANALYZER SALES): Ibuprofen 600 mg every 6 hours Muscle [...] CV/Pulm: Vital signs stable, within normal limits. RI Asthma: Albuterol PRN, last needed inhaler 6 [...] managed with dexcom/pump. Insulin gtt PRN 6. RI Asthma: Albuterol PRN, last needed inhaler 6 [...] (03/28/2020): Added automatically from request for surgery [id number] Thrombocytopenia affecting 03/07/2020 Overview (03/28/2020): 02/26: plt [...] has been receiving frequent GC/Chlamydia tests with RADIATION THERAPY TECHNOLOGIST. Most recent was negative in early November Plan: -- will change topical drops (gtts) to moxifloxacin (intolerant of polytrim, does not like ointment -- will give azithromycin 1g once -- conj culture taken today -- will contact RADIATION THERAPY TECHNOLOGIST -- RTC in 10 days Positive urine [...] her meals. CGM, Dexcom Log in information: [email or web address] User name: [email or web address] Password: [email or web address] Current Regimen 04/04/2020 12a-3a 1.45 -- 1.5 [...] testing starting at 32 weeks (BPP at [place], NST at [facility]) -Delivery at 37-39 weeks depending on compliance and glycemic control. -Continue ASA for preeclampsia prevention Assessment & Plan (04/04/2020 10:44 AM ANALYZER SALES): BS log will be reviewed by M fellow following this appointment and Mitali will be notified of any changes. Assessment & Plan (03/07/2020 1:50 PM ANALYZER SALES): BS log reviewed by Dr. West, adjustments made above. Will continue weekly visits for insulin adjustments. Assessment & Plan (02/11/2020 7:59 PM ANALYZER SALES): Blood sugars over the last 4 days [...] episodes. Assessment & Plan (02/01/2020 8:29 PM ANALYZER SALES): BS log reviewed today by Dr. Phipps and changes made. Assessment & Plan (09/19/2019 3:33 PM CDT): Will continue current regimen and add medication for nausea. Rx placed today. Recommend she call our office with lows <65. She will keep a good log and will review in 1 week. Tobacco smoking affecting [facility] 09/04/2019 Overview (03/21/2020): - Previously smoked 5 [...] provided: Dr. Samuels's Referring Provider: Brandi Peres [phone] [x] Dating Criteria: LMP 06/10/19 ALYSSA 03/16/20 [...] Nexplanon [x] Method of feeding: breast [x] Rug Hooker Hand: [x] PP Depression Discussed: Autoimmune disorder 07/27/2019 [...] use. Assessment & Plan (01/22/2023 10:45 AM ANALYZER SALES): --Continue PRN albuterol inhaler Depression 06/16/2012 Overview (03/04/2020): Mood ok, decided to not start Zoloft. No SI/HI. Will let us know if she desires additional support. - Continue to monitor mood Assessment & Plan (08/25/2023 4:15 AM CDT): History of depression and ADHD: Continue home Abilify, venlafaxine, Adderall Assessment & Plan (01/22/2023 10:45 AM ANALYZER SALES): --Continue home doses of Abilify and venlafaxine Resolved Problems Problem Noted Date Diagnosed Date Resolved Date Diabetic ketoacidosis withou t coma associated with type 1 diabetes mellitus 05/23/2022 07/13/2023 Assessment & Plan (01/23/2023 11:09 AM ANALYZER SALES): A1c 9.6% in January 2023. Patient presents [...] (03/28/2020): Added automatically from request for surgery [id number] Type 1 diabetes mellitus with complication 11/08/2018 02/11/2020 Overview (06/04/2019): Current regimen: Lantus 20, humalog 10 tid HbA1c Lab Results Component Value Date HGBA1C 13.0 (H) 11/07/2018 BP At goal Not at goal BP Readings from Last 1 Encounters: 06/04/19 119/74 Microalbumin/Creatinine No results found for: MICROALBUR, [id number] ACEi/ARB prescribed: lisinopril 2.5 Antiplatelet therapy prescribed no due to patient age ASCVD risk score The ASCVD Risk score (Lewis DC Jr., et al., 2013) failed to calculate for the following reasons: The 2013 ASCVD risk score is only valid for ages 40 to 79 Foot/extremity exam loss of sensation under big toe Retinopathy seen by eye doctor within past year Ancillary Support : operating systems programmer, DM educator and pharmacist Assessment & Plan [...] Description 07/18/2024 3:40 PM CDT Office Visit [facility] Endocrinology Metabolism and Lipid [address] 13th [place] [address] [place] [address] Chadwick Fair MD PhD Type 1 diabetes mellitus with hyperglycemia (HCC) (Primary Dx); Insulin pump titration; Abnormal thyroid function test; Overweight (BMI 25.0-29.9); Class 1 obesity due to excess calories with serious comorbidity in adult, unspecified BMI 07/10/2024 11:01 PM CDT - 07/11/2024 4:35 AM CDT Emergency [facility] Emergency Department [address] [place] [id number] Sivan Awad MD Hyperglycemia (Primary Dx); Chest pain, unspecified type; Ketosis (HCC); Type 1 diabetes mellitus with hyperglycemia (HCC) Discharge Disposition: Discharge to home or self care 07/10/2024 Telephone [facility] Endocrinology Metabolism and Lipid [address], [address] [place] [address] Naya Marcus RMA Hyperglycemia 05/16/2024 Telephone [facility] Endocrinology Metabolism and Lipid [address] [facility] [address] 5[address] [place] [address] [place] [address] Helen Head RN insulin/ apt from Last 3 Months Immunizations Immunization Administration Dates Next Due DTaP [...] coma associated with type 1 diabetes mellitus (HCC) 05/23/2022 Pre-existing type 1 diabetes mellitus during , antepartum 03/16/2020 Added automatically from request for surgery [id number] Family History Medical History Relation Name Comments [...] = 0.6 oz pur e alcohol) [facility] Utilities Answer Date Recorded In the past 12 months has th e electric, gas, oil, or water company threatened to shut off services in your [...] often do you attend chur ch or catholic services? Never 08/25/2023 Do you belong to any clubs o r organizations such as rastafari groups, unions, fraternal or athletic groups, or [...] medical care, and heating? Somewhat hard 08/25/2023 [facility] [place] of Occupat ional Health - Occupational Stress [...] place to sleep or slept in a jail (including now)? No 05/24/2022 Johnson Depression Scale Answer Date Recorded Johnson Depression Scale Total 0 05/28/2020 The thought [...] time in the past [address] [facility], were you homeless or living in a jail (including now)? No 08/25/2023 Personal Safety Answer Date Recorded Have you ever been in or are you currently in a harmful physical or emotional relationship or is someone making you feel afraid or unsafe? Denies 07/10/2024 Comments Unknown Sex and Gender Information Value Date Recorded Sex Assigned at Not on file Legal Sex Female 9:20 AM ANALYZER SALES Gender Identity Not on file Sexual Orientation [...] Epidur al N Livin g 8 9 PELON Mcintyre,CELESTE Cross, Diomedes Mckeon MD Complications:Shoulder Dysto matt Delivery Location:[facility] ([facility]) Last Filed Vital Signs Vital [...] 07/18/2024 3:21 PM CDT Plan of Treatment Health Maintenance Due Date Last Done Comments Cervical Cancer Screening 1995 Foot Exam 1995 Varicella Vaccines (2 of 2 - 13+ 2-dose series) 04/11/2012 03/14/2012 Pneumococcal vaccine <65 (1 of 2 - PCV) 12/19/2014 Regular Well Visit/Exam 18-64 08/26/2020 08/27/2019 Dilated Eye Exam 12/04/2020 12/05/2019 Depression Screening 05/28/2021 05/28/2020 Albumin Creatinine Ratio, Urine 05/20/2022 05/20/2021, 06/04/2019 Lipid Panel 06/03/2023 06/02/2022, 04/0 07/2021, 05/28/2020, Additional history exists TSH Level 08/24/2024 08/25/2023, 1210/2022, 01/21/2023, Additional history exists Influenza Vaccine (Season Ended) 2024 11/30/2010 Hemoglobin A1C 01/17/2025 07/18/2024, 2 10/2023, 01/22/2023, Additional history exists eGFR 07/11/2025 07/11/2024, 06/15, 08/26/2023, Additional history exists DTaP/Tdap/Td Vaccine (8 - [...] diabetes mellitus with hyperglycemia (HCC) POCT GLUCOSE [id number] Routine 07/18/2024 3: 24 PM CDT Type [...] 5.6 % Blood 07/18/2024 3:24 PM CDT us Max Taoism Fair MD PhD POINT OF CARE TEST ORDERABLES Final Result * eGFR (07/11/2024 3:31 AM CDT) Pathologist [facility] eGFR >90 >=60 mL/min/1. 73 m2 Comment: [...] MD LAB BLOOD ORDERABLES F inal Result [facility] [place] [address] * Basic metabolic panel (07/11/2024 3:31 AM CDT) Pathologist [facility] Sodium 136 135 - 145 mmol/L Potassium, pl 3.6 3.3 - 4.9 mmol/L [facility] Chloride 103 97 - 110 mmol/L [facility] CO2 25 22 - 32 mmol/L [facility] Anion gap 8 2 - 15 mmol/L [facility] BUN 11 6 - 25 mg/dL [facility] Creatinine 0.73 0.60 - 1.10 mg/dL [facility] Glucose 173 70 - 199 mg/dL [facility] Comment: Interpretive Data Fasting glucose >/= 126 [...] classification and Diagnosis of Diabetes Diabetes Care 2021; 46: S19-S40. Current interpretive data was last revised 2022. Calcium 9.1 8.5 - 10.3 mg/dL [facility] Blood 07/11/2024 3:31 AM CDT 07/11/2024 3:43 AM CDT Geovanny Ruano MD LAB BLOOD ORDERABLES F inal Result Performing Organization Address [facility]/ZIP Co de Phone Number [facility] [place] [address] * (ABNORMAL) POCT glucose (07/11/2024 2:57 AM CDT) Glucose, POC 207(H) 70 - 199 mg/dL Blood 07/11/2024 2:57 AM CDT 07/11/2024 2:57 AM CDT us Sivan Awad MD LAB POCT ORDERABLES - DEVIC E Final Result Performing Organization Address City/[facility]/ZIP Co de Phone Number [facility] [place] [address] * (ABNORMAL) POCT glucose (07/11/2024 1:45 AM CDT) Glucose, POC 303(H) 70 - 199 mg/dL Comment:Glu2: RN/MD Notified Glucose comment 1 Glu2: RN/MD Notified [facility] Blood 07/11/2024 1:45 AM CDT 07/11/2024 1:45 AM CDT Sivan Awad MD LAB POCT ORDERABLES - DEVIC E Final Result Performing Organization Address [facility] de Phone Number [facility] [place] [place] [address] * Troponin I high-sensitivity (07/11/2024 1:25 AM CDT) Pathologist [facility] Trop I hs <4 <=17 ng/L Comment: Interpretive Data For further hscTnI resources including the diagnostic algorithm and an aid in interpretation, copy and paste this link: [email or web address] Current Interpretive Data last revised 2019. Blood 07/11/2024 1:25 AM CDT 07/11/2024 1:46 AM CDT Geovanny Ruano MD LAB BLOOD ORDERABLES F inal Result Performing Organization Address [facility] de Phone Number [facility] [place] [address] * (ABNORMAL) POCT glucose (07/11/2024 1:25 AM CDT) [facility] Glucose, POC 305(H) 70 - 199 mg/dL Blood 07/11/2024 1:25 AM CDT 07/11/2024 1:25 AM CDT Sivan Awad MD LAB POCT ORDERABLES - DEVIC E Final Result Performing Organization Address [facility] Co de Phone Number [facility] [place] [address] * D-dimer, quantitative (07/11/2024 1:25 AM CDT) [facility] D-Dimer <215 <=499 ng/mL FEU Comment: Interpretive [...] 68, VTE cut-off 680 ng/ml FEU. References; Schouten HT et al. Brit Med J. 2013;346:f2492. Noreen SMITH et al. Annals Int Med. 2015;163:701-11. Current interpretive data was last revised on 2019. Blood 07/11/2024 1:25 AM CDT 07/11/2024 1:39 AM CDT us Geovanny Ruano MD LAB BLOOD ORDERABLES F inal Result Performing Organization Address City/[facility]/ZIP Co de Phone Number [facility] [place] [address] * (ABNORMAL) POCT glucose (07/10/2024 10:09 PM CDT) [facility] Glucose, POC 300(H) 70 - 199 mg/dL Comment:Glu2: RN/MD Notified Glucose comment 1 Glu2: RN/MD Notified [facility] Blood 07/10/2024 10:0 9 PM CDT 07/10/2024 10:09 PM CDT us Notinfile Unknown LAB POCT ORDERABLES - DEVICE F inal Result Performing Organization Address [facility]/ZIP Co de Phone Number [facility] Department [place] [address] * XR Chest Pa Lateral 2 Vw [...] Awad MD LAB BLOOD ORDERABLES Final Result [facility] [address] [facility] [place] [address] * Differential, auto (07/10/2024 8:23 PM CDT) Pathologist [facility] Neutrophil abs 5.63 1.50 - 6.50 K/cumm Imm gran abs 0.04 0.00 - 0.10 K/cumm [facility] Lymphocyte abs 2.83 0.80 - 3.30 K/cumm [facility] Monocyte abs 0.51 0.20 - 0.80 K/cumm [facility] Eosinophil abs 0.07 0.00 - 0.50 K/cumm [facility] Basophil abs 0.05 0.00 - 0.10 K/cumm [facility] Neutrophil pct 61.7 % [facility] Comment: Interpretive Data Percent cell count reference ranges are not reported, since discordance with absolute values may lead to misinterpretation of CBC data. Current Interpretive Data was last revised on 2017. Imm gran pct 0.4 % [facility] Comment: Interpretive Data Percent cell count reference ranges are not reported, since discordance with absolute values may lead to misinterpretation of CBC data. Current Interpretive Data was last revised on 2017. Lymphocyte pct 31.0 % [facility] Comment: Interpretive Data Percent cell count reference ranges are not reported, since discordance with absolute values may lead to misinterpretation of CBC data. Current Interpretive Data was last revised on 2017. Monocyte pct 5.6 % [facility] Comment: Interpretive Data Percent cell count reference ranges are not reported, since discordance with absolute values may lead to misinterpretation of CBC data. Current Interpretive Data was last revised on 2017. Eosinophil pct 0.8 % [facility] Comment: Interpretive Data Percent cell count reference ranges are not reported, since discordance with absolute values may lead to misinterpretation of CBC data. Current Interpretive Data was last revised on 2017. Basophil pct 0.5 % [facility] Comment: Interpretive Data Percent cell count reference ranges are not reported, since discordance with absolute values may lead to misinterpretation of CBC data. Current Interpretive Data was last revised on 2017. Blood 07/10/2024 8:23 PM CDT 07/10/2024 8:38 PM CDT Sivan Awad MD LAB BLOOD ORDERABLES Final Result [facility] [place] [address] * CBC with auto differential (07/10/2024 8:23 PM CDT) WBC 9.13 3.80 - 9.90 K/cumm Hgb 14.9 11.9 - 15.5 g/dL [facility] Hct 42.5 35.6 - 45.5 % [facility] Plt 214 150 - 400 K/cumm [facility] MPV 11.6 9.1 - 12.3 fL [facility] RBC 4.86 3.90 - 5.20 M/cumm [facility] MCV 87.4 81.3 - 96.4 fL [facility] MCH 30.7 27.1 - 33.3 pg [facility] MCHC 35.1 32.3 - 35.7 g/dL [facility] RDW CV 12.9 11.1 - 14.9 % [facility] RDW SD 41.1 35.7 - 48.1 fL [facility] NRBC abs 0.00 0.00 - 0.01 K/cumm [facility] Blood 07/10/2024 8:23 PM CDT 07/10/2024 8:38 PM CDT Sivan Awad MD LAB BLOOD ORDERABLES Final Result [facility] [place] [address] * (ABNORMAL) Comprehensive metabolic panel (07/10/2024 8:23 PM CDT) Sodium 138 135 - 145 mmol/L Potassium, pl 3.5 3.3 - 4.9 mmol/L [facility] Chloride 100 97 - 110 mmol/L [facility] CO2 21(L) 22 - 32 mmol/L [facility] Anion gap 17(H) 2 - 15 mmol/L [facility] BUN 11 6 - 25 mg/dL [facility] Creatinine 0.78 0.60 - 1.10 mg/dL [facility] Glucose 297(H) 70 - 199 mg/dL [facility] Comment: Interpretive Data Fasting glucose >/= 126 [...] classification and Diagnosis of Diabetes Diabetes Care 2021; 46: S19-S40. Current interpretive data was last revised 2022. Calcium 9.6 8.5 - 10.3 mg/dL [facility] Bilirubin, total 0.7 0.1 - 1.2 mg/dL [facility] Protein, pl 8.4 6.5 - 8.5 g/dL [facility] Albumin 4.7 3.5 - 5.0 g/dL [facility] Alk phos 111 40 - 130 Units/L [facility] ALT 14 7 - 45 Units/L [facility] AST 18 10 - 45 Units/L [facility] Blood 07/10/2024 8:23 PM CDT 07/10/2024 8:38 PM CDT us Sivan Awad MD LAB BLOOD ORDERABLES Final Result [facility] [place] [address] * (ABNORMAL) POCT glucose (07/10/2024 8:19 PM CDT) Glucose, POC 285(H) 70 - 199 mg/dL Blood 07/10/2024 8:19 PM CDT 07/10/2024 8:19 PM CDT us Notinfile Unknown LAB POCT ORDERABLES - DEVICE F inal Result [facility] [place] [address] * ECG 12-LEAD (07/10/2024 6:16 PM CDT) Narrative [facility] - 07/10/2024 6:16 PM CDT Good Martin [...] on January 22, 2023 Good Martin MD 07/10/246 Sivan Awad MD ECG ORDERABLES Final Resul t [facility] * (ABNORMAL) POCT glucose (07/10/2024 6:01 PM CDT) Glucose, POC 249(H) 70 - 199 mg/dL Blood 07/10/2024 6:01 PM CDT 07/10/2024 6:01 PM CDT us Notinfile Unknown LAB POCT ORDERABLES - DEVICE F inal Result Performing Organization Address [facility] Co de Phone Number [facility] [place] [address] * (ABNORMAL) POCT ketone, blood (07/10/2024 6:01 PM CDT) Beta-Hydroxybut yrate, POC 0.6(H) 0.0 - 0.5 mmol/L Blood 07/10/2024 6:01 PM CDT 07/10/2024 6:01 PM CDT us Notinfile Unknown LAB POCT ORDERABLES - DEVICE F inal Result Performing Organization Address [facility] de Phone Number [facility] [place] [address] * Thyroid Function [place] (08/25/2023 12:40 AM CDT) Pathologist [facility] TSH 0.64 0.30 - 4.20 mcIUnit/mL Blood 08/25/2023 12:4 0 AM CDT 08/25/2023 12:59 AM CDT us James Harding MD LAB BLOOD ORDERABLES Final Re sult Performing Organization Address [facility] de Phone Number [facility] [place] [address] * (ABNORMAL) Lipid panel with direct LDL [...] CDT 06/02/2022 2:18 PM CDT Narrative [facility] - 06/02/2022 3:07 PM CDT Current interpretive data was last updated January 16, 2021. Chadwick Fair MD PhD LAB BLOOD ORDERABL ES Final Result Performing Organization Address City/[facility] Co de Phone Number [facility] * Albumin Creatinine Ratio, Urine (05/20/2021 12:08 PM CDT) Pathologist [facility] Albumin Ur <12.0 mg/L [facility] Comment: Interpretive Data No reference range established. Current interpretive data was last revised 2018. Creatinine Ur 157.2 mg/dL [facility] Comment: Interpretive Data No reference range established. Current interpretive data was last revised 2018. Albumin Creatinine Ratio, Ur <8 1 - 29 mg/g [facility] Urine 05/20/2021 12:0 8 PM CDT 05/20/2021 12:42 PM CDT Chadwick Fair MD PhD LAB URINE ORDERABL ES Final Result Performing Organization Address City/[facility] Co de Phone Number [facility] Department [place] [address] * Hepatitis C antibody (08/27/2019 11:57 AM CDT) Pathologist [facility] Hep C Ab NONREACT NONREACTIVE [facility] Comment: [employer] using MATT (chemiluminescent immunoassay) technology. NONREACTIVE: Antibodies [...] MICROBIOLOGY - GEN ERAL ORDERABLES Final Result [address] [address], [facility] [phone] from Last 3 Months or Most Recently Relevant to Health Maintenance Insurance [facility] Advance Directives For more information, please contact: [phone] * Full Code (Latest Code Status on [...] 10:51 AM 02/29/2020 8:26 PM Care Teams Sleep Lab Technologist Relationship Specialty Start Date End Date Bhargav Jain MD [address] [place] [address] PCP - General Family Medicine 02/24/22
--- NOTE | 2024-08-02 12:50 | ED_ITS ---
HPI - General Adult General Chief complaint: Dental/Oral Stated complaint: ORAL SWELLING/PAIN PT DIABETIC 356 BLD SUGAR Time Seen by Provider: 08/02/24 12:01 History of Present Illness HPI narrative: This is a 28-year-old female diabetes presenting for dental pain. Patient has a lower left molar that is run below the gum line. She has now had increased pain and swelling. No difficulty swallowing or breathing systemic signs of illness such as fevers chills nausea vomiting. Related Data Home Medications ?Medication ?Instructions ?Recorded ?Confirmed ?Last Taken ?Type insulin lispro 100 unit/mL 1 sliding scale dose subcut 10/21/20 05/15/24 Unknown History subcutaneous cartridge (Humalog USEASDIRECTD U-100 Insulin) blood-glucose sensor (DexAutoESL G7 08/07/23 05/15/24 Unknown History Sensor device) blood-glucose transmitter (Dexcom 08/07/23 05/15/24 Unknown History G6 Transmitter device) Allergies Allergy/AdvReac Type Severity Reaction Status Date / Time fluoxetine Allergy Mild Hives Verified 08/02/24 12:36 sulfamethoxazole AdvReac Mild Hives Verified 05/15/24 13:53 [facility] Past Medical History Medical History Right otitis media Acute sinusitis Left elbow pain Infected dental caries Insomnia Periodontal disease Lymph nodes enlarged Sensation of knee instability Myalgia Cervicalgia Right knee pain Vitamin D deficiency, unspecified (05/20/21) Level low at 22 with goal greater than 30 on 05/20/2021. Chronic depression BMI 28.0-28.9,adult Recovering alcoholic ADHD ADD (attention deficit disorder) Encounter to establish care Wellness examination B12 deficiency Level normal at 1108 on 05/20/2021. Hemoglobin 13.5. Type 1 diabetes Glucose 138 with hemoglobin A1c 10.1 on 05/20/2021. Anemia Hemoglobin 13.5 with folic acid greater than 20, vitamin B12 1108, iron 77 with 36% saturation and ferritin 60 on 05/20/2021. Anxiety Thyroid disorder Diabetes Asthma Family History Family History Father Alcoholism Hypertension Mother Cancer Depression Anxiety Thyroid disorder Other Asthma Social History Social History Smoking packs per day: 0.5 Smoking cigarettes per day: 10.0 Years smoked: 9 Smoking pack-years: 4.50 Smoking status: Former smoker Alcohol intake: current Alcohol use details: socially Substance use: current Substance use type: marijuana Lack of Transportation: No Lack of Food: Never True Current Housing: I Have Housing Concerned About Future Housing: No Difficulty Paying Gas/Electric Bills: No Difficulty Paying for Meds: No Currently Unemployed: No Education: High School Diploma/GED Difficulty w/ Childcare or Family Care: No Exam Narrative: APPEARANCE: No apparent distress. Head: Poor dentition, almost more has run below the gum line, no fluctuant masses a could be drained, no firmness to the floor ofthe mouth EYES: EOMI, NOSE: Atraumatic NECK: Trachea midline RESPIRATORY: No increased rate of breathing CARDIOVASCULAR: RRR, ABDOMINAL: Non-distended MUSCULOSKELETAl: No obvious deformities NEURO: Alert. Moving 4/4 extremities SKIN:: Warm, dry. Normal color PSYCHIATRIC: Normal affect Course Vital Signs Vital signs: Vital Signs Temperature 98.4 F 08/02/24 11:30 Pulse Rate 96 08/02/24 11:30 Respiratory Rate 18 08/02/24 11:30 Blood Pressure 134/100 H 08/02/24 11:30 Pulse Oximetry 100 08/02/24 11:30 Oxygen Delivery Room Air 08/02/24 11:30 Temperature 98.4 F 08/02/24 11:30 Pulse Rate 96 08/02/24 11:30 Respiratory Rate 18 08/02/24 11:30 Blood Pressure 134/100 H 08/02/24 11:30 Pulse Oximetry 100 08/02/24 11:30 Oxygen Delivery Room Air 08/02/24 11:30 Medical Decision Making [facility] Narrative Medical decision making narrative: -Course: 28-year-old female presenting with dental pain dental block performed with some relief. Discharged on antibiotics and dental follow-up. Precautions difficulty swallowing, breathing or spreading infection. -DDX includes but is not limited to: Toothache, dental caries, dental infection Vital Signs Vital Signs: Vital Signs Temperature 98.4 F 08/02/24 11:30 Pulse Rate 96 08/02/24 11:30 Respiratory Rate 18 08/02/24 11:30 Blood Pressure 134/100 H 08/02/24 11:30 Pulse Oximetry 100 08/02/24 11:30 Oxygen Delivery Room Air 08/02/24 11:30 Temperature 98.4 F 08/02/24 11:30 Pulse Rate 96 08/02/24 11:30 Respiratory Rate 18 08/02/24 11:30 Blood Pressure 134/100 H 08/02/24 11:30 Pulse Oximetry 100 08/02/24 11:30 Oxygen Delivery Room Air 08/02/24 11:30 Lab Data Labs: Lab Results 08/02/24 Range/Units 11:33 POC Capillary Glucose 169 H (65-105) mg/dl Discharge Plan Discharge Clinical Impression: Pain, dental Patient Disposition: Home Condition: Stable Instructions: Antibiotic Form, Toothache (ED) Additional Instructions: Please use Motrin Tylenol for pain. complete a course of Augmentin. Please follow-up with dentist for further management. Return develop difficulty swallowing breathing or worsening infection. Patient Language: Latvian Prescriptions: New amoxicillin-pot clavulanate 875-125 mg tablet 1 tablet PO Q12H Qty: 20 0RF No Action (DME) Dexcom G7 Sensor Device MISCELLANEOUS (DME) Dexcom G6 Transmitter Device MISCELLANEOUS Humalog U-100 Insulin 100 unit/mL Cartridge 1 sliding scale dose SUBCUT USEASDIRECTD insulin lispro [Humalog U-100 Insulin] 100 unit/mL solution 1 sliding scale dose subcut USEASDIRECTD Qty: 30 0RF Rx Instructions: x1 emergency fill albuterol sulfate [Ventolin HFA] 90 mcg/actuation HFA aerosol inhaler 1 - 2 inh inhalation Q4H PRN (Reason: shortness of breath or wheezing) Qty: 8.5 0RF aripiprazole [Abilify] 10 mg tablet 10 mg PO DAILY Qty: 30 11RF dextroamphetamine-amphetamine [Adderall] 15 mg tablet 15 mg PO TID Qty: 90 0RF Rx Instructions: Take 4-6 hours apart Follow-up/Referrals: Ary Kwan NP [Primary Care Provider] - Stand Alone Forms: Work/School Release IP
--- OUTSIDE RECORDS SUMMARY | 2024-08-02 12:50 | XMS_ITS | Referral Summary ---
Author Organization [facility] Address [address] [place] [address] Care Team Providers Care Rivet Driver Name Role Phone Bhargav Jain MD Primary Care Provider [phone] Encounters Date Type Department Care Team Description 07/18/2024 3:40 PM CDT Office Visit [facility] Metabolism and Lipid [address] [place] [address] [place] [address] Chadwick Fair MD PhD Type 1 diabetes mellitus with hyperglycemia (HCC) (Primary Dx); Insulin pump titration; Abnormal thyroid function test; Overweight (BMI 25.0-29.9); Class 1 obesity due to excess calories with serious comorbidity in adult, unspecified BMI 07/10/2024 11:01 PM CDT - 07/11/2024 4:35 AM CDT Emergency [facility] Emergency Department [address] [place] [address] Sivan Awad MD Hyperglycemia (Primary Dx); Chest pain, unspecified type; Ketosis (HCC); Type 1 diabetes mellitus with hyperglycemia (HCC) Discharge Disposition: Discharge to home or self care 07/10/2024 Telephone [facility] Metabolism [facility] Lipid [address] [facility] [address], [address] [place] [address] Naya Marcus RMA Hyperglycemia 05/16/2024 Telephone [facility] Metabolism [facility] Lipid [address] [place] [address] [place] [address] Helen Head RN insulin/ apt [...] hypoglycemia) 2 each 4 Active blood-glucose sensor (TriActivecom G7 Sensor) deviceIndications :E10.65 Z79.4 Use as [...] 04/25/2021 Assessment & Plan (04/25/2021 2:59 PM ACCOUNTING ADVISORY SERVICES MANAGER): Ibuprofen 600 mg every 6 hours Muscle [...] CV/Pulm: Vital signs stable, within normal limits. [place] Asthma: Albuterol PRN, last needed inhaler 6 [...] managed with dexcom/pump. Insulin gtt PRN 6. NC Asthma: Albuterol PRN, last needed inhaler 6 [...] (03/28/2020): Added automatically from request for surgery [id number] Thrombocytopenia affecting 03/07/2020 Overview (03/28/2020): 02/26: plt [...] has been receiving frequent GC/Chlamydia tests with [facility]. Most recent was negative in early November Plan: -- will change topical drops (gtts) to moxifloxacin (intolerant of polytrim, does not like ointment -- will give azithromycin 1g once -- conj culture taken today -- will contact [facility] -- RTC in 10 days Positive urine [...] gram of carbs with her meals. CGM, [employer] Log in information: [email or web address] User name: Rafael Password: [email or web address] Current Regimen 04/04/2020 12a-3a 1.45 -- 1.5 3a-12p 1.5 12p-6p 1.55 -- 1.6 6p-12a 1.6 -- 1.65 CF: 1:20 I:C 1:3.5; 12p-5p 1:2.5 Active insulin 3 hours Target BG 100 -Using dexcom [employer] CGM -Previously counseled, aware of BS goals -We will plan to monitor blood glucose log weekly for adjustment -Anatomic survey and echo complete and normal -Continue serial growth ultrasounds- (AGA 80% 02/25/20) -Start twice weekly testing starting at 32 weeks (BPP at [place], NST at [facility]) -Delivery at 37-39 weeks depending on compliance and glycemic control. -Continue ASA for preeclampsia prevention Assessment & Plan (04/04/2020 10:44 AM ACCOUNTING ADVISORY SERVICES MANAGER): BS log will be reviewed by MFM fellow following this appointment and Mitali will be notified of any changes. Assessment & Plan (03/07/2020 1:50 PM ACCOUNTING ADVISORY SERVICES MANAGER): BS log reviewed by Dr. West, adjustments made above. Will continue weekly visits for insulin adjustments. Assessment & Plan (02/11/2020 7:59 PM ACCOUNTING ADVISORY SERVICES MANAGER): Blood sugars over the last 4 days [...] episodes. Assessment & Plan (02/01/2020 8:29 PM ACCOUNTING ADVISORY SERVICES MANAGER): BS log reviewed today by Dr. Phipps and changes made. Assessment & Plan (09/19/2019 3:33 PM CDT): Will continue current regimen and add medication for nausea. Rx placed today. Recommend she call our office with lows <65. She will keep a good log and will review in 1 week. Tobacco smoking affecting in [facility] 09/04/2019 Overview (03/21/2020): - Previously smoked 5 [...] provided: Dr. Samuels's Referring Provider: Brandi Peres [phone] [x] Dating Criteria: LMP 06/10/19 ALYSSA 03/16/20 [...] Nexplanon [x] Method of feeding: breast [x] Sea Captain: [x] PP Depression Discussed: Autoimmune disorder 07/27/2019 [...] use. Assessment & Plan (01/22/2023 10:45 AM ACCOUNTING ADVISORY SERVICES MANAGER): --Continue PRN albuterol inhaler Depression 06/16/2012 Overview (03/04/2020): Mood ok, decided to not start Zoloft. No SI/HI. Will let us know if she desires additional support. - Continue to monitor mood Assessment & Plan (08/25/2023 4:15 AM CDT): History of depression and ADHD: Continue home joyce Rodriguezxine, Adderall Assessment & Plan (01/22/2023 10:45 AM ACCOUNTING ADVISORY SERVICES MANAGER): --Continue home doses of Abilify and venlafaxine Resolved Problems Problem Noted Date Diagnosed Date Resolved Date Diabetic ketoacidosis withou t coma associated with type 1 diabetes mellitus 05/23/2022 07/13/2023 Assessment & Plan (01/23/2023 11:09 AM ACCOUNTING ADVISORY SERVICES MANAGER): A1c 9.6% in January 2023. Patient presents [...] (03/28/2020): Added automatically from request for surgery [id number] Type 1 diabetes mellitus with complication 11/08/2018 02/11/2020 Overview (06/04/2019): Current regimen: Lantus 20, humalog 10 tid HbA1c Lab Results Component Value Date HGBA1C 13.0 (H) 11/07/2018 BP At goal Not at goal BP Readings from Last 1 Encounters: 06/04/19 119/74 Microalbumin/Creatinine No results found for: MICROALBUR, [id number] ACEi/ARB prescribed: lisinopril 2.5 Antiplatelet therapy prescribed no due to patient age ASCVD risk score The ASCVD Risk score ([place]ain[place]ottpetty BARNES Jr., et al., 2013) failed to calculate for the following reasons: The 2013 ASCVD risk score is only valid for ages 40 to 79 Foot/extremity exam loss of sensation under big toe Retinopathy seen by eye doctor within past year 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 Never 08/25/2023 Do you belong to any clubs o r organizations such as worship groups, unions, fraternal or athletic groups, or [...] medical care, and heating? Somewhat hard 08/25/2023 [facility] [place] of Occupat ional Health - Occupational Stress [...] place to sleep or slept in a care home (including now)? No 05/24/2022 [place] Depression Scale Answer Date Recorded [place] Depression Scale Total 0 05/28/2020 The thought [...] any time in the past 12 m [facility], were you homeless or living in a care home (including now)? No 08/25/2023 Personal Safety Answer Date Recorded Have you ever been in or are you currently in a harmful physical or emotional relationship or is someone making you feel afraid or unsafe? Denies 07/10/2024 Comments Unknown Sex and Gender Information Value Date Recorded Sex Assigned at Not on file Legal Sex Female 9:20 AM ACCOUNTING ADVISORY SERVICES MANAGER Gender Identity Not on file Sexual Orientation [...] diabetes mellitus with hyperglycemia (HCC) POCT GLUCOSE [id number] Routine 07/18/2024 3: 24 PM CDT Type [...] MD LAB BLOOD ORDERABLES F inal Result [facility] Department [place] [address] * Basic metabolic panel (07/11/2024 3:31 AM CDT) Sodium 136 135 - 145 mmol/L Potassium, pl 3.6 3.3 - 4.9 mmol/L [facility] Chloride 103 97 - 110 mmol/L [facility] CO2 25 22 - 32 mmol/L [facility] Anion gap 8 2 - 15 mmol/L [facility] BUN 11 6 - 25 mg/dL [facility] Creatinine 0.73 0.60 - 1.10 mg/dL [facility] Glucose 173 70 - 199 mg/dL [facility] Comment: Interpretive Data Fasting glucose >/= [...] 2022. Calcium 9.1 8.5 - 10.3 mg/dL [facility] Blood 07/11/2024 3:31 AM CDT 07/11/2024 3:43 AM CDT Geovanny Ruano MD LAB BLOOD ORDERABLES F inal Result Performing Organization Address City/[facility]/ZIP Co de Phone Number [facility] [place] [address] * (ABNORMAL) POCT glucose (07/11/2024 2:57 AM CDT) Glucose, POC 207(H) 70 - 199 mg/dL Blood 07/11/2024 2:57 AM CDT 07/11/2024 2:57 AM CDT Sivan Awad MD LAB POCT ORDERABLES - DEVIC E Final Result Performing Organization Address [facility] Co de Phone Number [facility] [place] [place] [address] * (ABNORMAL) POCT glucose (07/11/2024 1:45 AM CDT) Glucose, POC 303(H) 70 - 199 mg/dL Comment:Glu2: RN/MD Notified Glucose comment 1 Glu2: RN/MD Notified [facility] Blood 07/11/2024 1:45 AM CDT 07/11/2024 1:45 AM CDT Sivan Awad MD LAB POCT ORDERABLES - DEVIC E Final Result Performing Organization Address [facility] [place] [address] * Troponin I high-sensitivity (07/11/2024 1:25 AM CDT) Trop I hs <4 <=17 ng/L Comment: Interpretive Data For further hscTnI resources including the diagnostic algorithm and an aid in interpretation, copy and paste this link: https://bjhlab.testcatalog.org/show/hsTrop-[email or web address] Current Interpretive Data last revised 2019. Blood 07/11/2024 1:25 AM CDT 07/11/2024 1:46 AM CDT Geovanny Ruano MD LAB BLOOD ORDERABLES F inal Result Performing Organization Address [facility] Co de Phone Number [facility] Department [place] [place] [address] * (ABNORMAL) POCT glucose (07/11/2024 1:25 AM CDT) Glucose, POC 305(H) 70 - 199 mg/dL Blood 07/11/2024 1:25 AM CDT 07/11/2024 1:25 AM CDT Sivan Awad MD LAB POCT ORDERABLES - DEVIC E Final Result Performing Organization Address [facility] de Phone Number [facility] [place] [address] * D-dimer, quantitative (07/11/2024 1:25 AM CDT) [...] ORDERABLES F inal Result Performing Organization Address [facility] Co de Phone Number [facility] Department [place] [address] * (ABNORMAL) POCT glucose (07/10/2024 10:09 PM CDT) Glucose, POC 300(H) 70 - 199 mg/dL Comment:Glu2: RN/MD Notified Glucose comment 1 Glu2: RN/MD Notified [facility] Blood 07/10/2024 10:0 9 PM CDT 07/10/2024 10:09 PM CDT us Notinfile Unknown LAB POCT ORDERABLES - DEVICE F inal Result Performing Organization Address [facility] de Phone Number [facility] Department [place] [address] * XR Chest Pa Lateral 2 Vw [...] MD LAB BLOOD ORDERABLES Final Result [facility] Department [place] [address] * Differential, auto (07/10/2024 8:23 PM CDT) Pathologist [facility] Department Neutrophil abs 5.63 1.50 - 6.50 K/cumm Imm gran abs 0.04 0.00 - 0.10 K/cumm [facility] Lymphocyte abs 2.83 0.80 - 3.30 K/cumm [facility] Monocyte abs 0.51 0.20 - 0.80 K/cumm [facility] Eosinophil abs 0.07 0.00 - 0.50 K/cumm [facility] Basophil abs 0.05 0.00 - 0.10 K/cumm [facility] Neutrophil pct 61.7 % [facility] Comment: Interpretive Data Percent cell count reference ranges are not reported, since discordance with absolute values may lead to misinterpretation of CBC data. Current Interpretive Data was last revised on 2017. Imm gran pct 0.4 % [facility] Comment: Interpretive Data Percent cell count reference ranges are not reported, since discordance with absolute values may lead to misinterpretation of CBC data. Current Interpretive Data was last revised on 2017. Lymphocyte pct 31.0 % [facility] Comment: Interpretive Data Percent cell count reference ranges are not reported, since discordance with absolute values may lead to misinterpretation of CBC data. Current Interpretive Data was last revised on 2017. Monocyte pct 5.6 % [facility] Comment: Interpretive Data Percent cell count reference ranges are not reported, since discordance with absolute values may lead to misinterpretation of CBC data. Current Interpretive Data was last revised on 2017. Eosinophil pct 0.8 % [facility] Comment: Interpretive Data Percent cell count reference ranges are not reported, since discordance with absolute values may lead to misinterpretation of CBC data. Current Interpretive Data was last revised on 2017. Basophil pct 0.5 % [facility] Comment: Interpretive Data Percent cell count reference ranges are not reported, since discordance with absolute values may lead to misinterpretation of CBC data. Current Interpretive Data was last revised on 2017. Blood 07/10/2024 8:23 PM CDT 07/10/2024 8:38 PM CDT Sivan Awad MD LAB BLOOD ORDERABLES Final Result [facility] Department [place] [address] * CBC with auto differential (07/10/2024 8:23 PM CDT) [facility] WBC 9.13 3.80 - 9.90 K/cumm Hgb 14.9 11.9 - 15.5 g/dL [facility] Hct 42.5 35.6 - 45.5 % [facility] Plt 214 150 - 400 K/cumm [facility] MPV 11.6 9.1 - 12.3 fL [facility] RBC 4.86 3.90 - 5.20 M/cumm [facility] MCV 87.4 81.3 - 96.4 fL [facility] MCH 30.7 27.1 - 33.3 pg [facility] MCHC 35.1 32.3 - 35.7 g/dL [facility] RDW CV 12.9 11.1 - 14.9 % [facility] RDW SD 41.1 35.7 - 48.1 fL [facility] NRBC abs 0.00 0.00 - 0.01 K/cumm [facility] Blood 07/10/2024 8:23 PM CDT 07/10/2024 8:38 PM CDT us Sivan Awad MD LAB BLOOD ORDERABLES Final Result Performing Organization Address City/[facility]/ZIP Co de Phone Number [facility] Department [place] [address] * (ABNORMAL) Comprehensive metabolic panel (07/10/2024 8:23 PM CDT) [facility] Sodium 138 135 - 145 mmol/L Potassium, pl 3.5 3.3 - 4.9 mmol/L [facility] Chloride 100 97 - 110 mmol/L [facility] CO2 21(L) 22 - 32 mmol/L [facility] Anion gap 17(H) 2 - 15 mmol/L [facility] BUN 11 6 - 25 mg/dL [facility] Creatinine 0.78 0.60 - 1.10 mg/dL [facility] Glucose 297(H) 70 - 199 mg/dL [facility] Comment: Interpretive Data Fasting glucose >/= [...] 2022. Calcium 9.6 8.5 - 10.3 mg/dL [facility] Bilirubin, total 0.7 0.1 - 1.2 mg/dL [facility] Protein, pl 8.4 6.5 - 8.5 g/dL [facility] Albumin 4.7 3.5 - 5.0 g/dL [facility] Alk phos 111 40 - 130 Units/L [facility] ALT 14 7 - 45 Units/L [facility] AST 18 10 - 45 Units/L [facility] Blood 07/10/2024 8:23 PM CDT 07/10/2024 8:38 PM CDT us Sivan Awad MD LAB BLOOD ORDERABLES Final Result Performing Organization Address City/[facility] Co de Phone Number [facility] Department [place] [address] * (ABNORMAL) POCT glucose (07/10/2024 8:19 PM CDT) [facility] Glucose, POC 285(H) 70 - 199 mg/dL Blood 07/10/2024 8:19 PM CDT 07/10/2024 8:19 PM CDT us Notinfile Unknown LAB POCT ORDERABLES - DEVICE F inal Result Performing Organization Address City/State/[facility] Co de Phone Number [facility] Department [place] [address] * ECG 12-LEAD (07/10/2024 6:16 PM CDT) Narrative [facility] - 07/10/2024 6:16 PM CDT Good [...] Performed by: Good Martin MD Authorized by: Odails Hassan MD Rate: ECG rate: Rate 102, narrow complex, regular, sinus, no STEMI, no changefrom prior on January 22, 2023 Good Martin MD 07/10/24 1816 us Sivan Awad MD ECG ORDERABLES Final Resul t Performing Organization Address [facility] Co de Phone Number [facility] * (ABNORMAL) POCT glucose (07/10/2024 6:01 PM CDT) Glucose, POC 249(H) 70 - 199 mg/dL Blood 07/10/2024 6:01 PM CDT 07/10/2024 6:01 PM CDT us Notinfile Unknown LAB POCT ORDERABLES - DEVICE F inal Result Performing Organization Address [facility] Co de Phone Number [facility] Gurjit [facility] Department [place] [address] * (ABNORMAL) POCT ketone, blood (07/10/2024 6:01 PM CDT) Beta-Hydroxybut yrate, POC 0.6(H) 0.0 - 0.5 mmol/L Blood 07/10/2024 6:01 PM CDT 07/10/2024 6:01 PM CDT us Notinfile Unknown LAB POCT ORDERABLES - DEVICE F inal Result Performing Organization Address City/[facility]/ZIP Co de Phone Number [facility] Department [place] [address] * Thyroid Function Terry (08/25/2023 12:40 AM CDT) Pathologist [facility] TSH 0.64 0.30 - 4.20 mcIUnit/mL Blood 08/25/2023 12:4 0 AM CDT 08/25/2023 12:59 AM CDT James Harding MD LAB BLOOD ORDERABLES Final Re sult Performing Organization Address [facility] Co de Phone Number [facility] Department [place] [address] * (ABNORMAL) Lipid panel with direct LDL (06/02/2022 1:54 PM CDT) Pathologist [facility] Triglycerides 226(H) <150 mg/dL [facility] [...] ORDERABL ES Final Result Performing Organization Address City/[facility]/ZIP Co de Phone Number [facility] * Albumin Creatinine Ratio, Urine (05/20/2021 12:08 PM CDT) Albumin Ur <12.0 mg/L [facility] Comment: Interpretive Data No reference range established. Current interpretive data was last revised 2018. Creatinine Ur 157.2 mg/dL [facility] Comment: Interpretive Data No reference range established. Current interpretive data was last revised 2018. Albumin Creatinine Ratio, Ur <8 1 - 29 mg/g [facility] Urine 05/20/2021 12:0 8 PM CDT 05/20/2021 12:42 PM CDT Chadwick Fair MD PhD LAB URINE ORDERABL ES Final Result Performing Organization Address [facility] de Phone Number [facility] Department [place] [address] * Hepatitis C antibody (08/27/2019 11:57 AM CDT) Pathologist [facility] Hep C Ab NONREACT NONREACTIVE [facility] Comment: Siemens French GirlsaurX using HENRY (chemiluminescent immunoassay) technology. NONREACTIVE: Antibodies [...] MICROBIOLOGY - GEN ERAL ORDERABLES Final Result [facility] [address] [place] [address], [facility] [phone] from Last 3 Months or Most Recently Relevant to Health Maintenance Insurance [facility] Advance Directives For more information, please contact: [phone] * Full Code (Latest Code Status on [...] 10:51 AM 02/29/2020 8:26 PM Care Teams Rivet Driver Relationship Specialty Start Date End Date Bhargav Jain MD [address] [address] PCP - General Family Medicine 02/24/22
--- OUTSIDE RECORDS SUMMARY | 2024-08-02 12:50 | XMS_ITS | Encounter Summary ---
Author Organization [facility] Address [address] [facility] [address] [place] [address] Phone Care Team Providers Care Gun Sealing Machine Operator Name Role Phone No, Physician Primary Care Provider Clinic, Electric Tripper Machine Operator X. Primary Care Provider No, Physician Primary Care Provider No, Physician Primary Care Provider Clinic, Electric Tripper Machine Operator X. Primary Care Provider No, Physician Primary Care Provider Clinic, Electric Tripper Machine Operator X. Primary Care Provider No, Physician Primary Care Provider Clinic, Electric Tripper Machine Operator X. Primary Care Provider No, Physician Primary Care Provider Clinic, Electric Tripper Machine Operator X. Primary Care Provider No, Physician Primary Care Provider Clinic, Electric Tripper Machine Operator X. Primary Care Provider Clinic, Electric Tripper Machine Operator X. Primary Care Provider Clinic, Electric Tripper Machine Operator X. Primary Care Provider No, Physician Primary Care Provider No, Physician Primary Care Provider Clinic, Electric Tripper Machine Operator X. Primary Care Provider No, Physician Primary Care Provider Ary Kwan NP Primary Care Provider [phone] Clinic, Electric Tripper Machine Operator X. 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 [place] [address] PCP - General 12/09/19 12/16/19 No, Physician PCP - General 12/18/19 12/20/19 No, Physician PCP - General 12/17/19 12/17/19 Clinic, Electric Tripper Machine [address] [place] [address] PCP - General 12/21/19 12/30/19 No, Physician PCP - General 12/31/19 12/31/19 Clinic, Electric Tripper Machine [address] [place] [address] PCP - General 01/01/20 01/24/20 No, Physician PCP - General 01/25/20 02/01/20 Clinic, Electric Tripper Machine [place] [address] [place] [address] PCP - General 02/02/20 02/03/20 No, Physician PCP - General 02/04/20 03/07/20 Clinic, Electric Tripper Machine [place] [address] [place] [address] PCP - General 03/08/20 03/10/20 No, Physician PCP - General 03/16/20 03/19/20 Clinic, Electric Tripper Machine [place] [address] [place] [address] PCP - General 03/20/20 03/27/20 [facility], Electric Tripper Machine [place] [place] [address] PCP - General 03/28/20 04/03/20 [facility], Electric Tripper Machine [place] [place] [address] PCP - General 04/05/20 04/07/20 No, Physician PCP - General 04/08/20 04/08/20 No, Physician PCP - General 04/09/20 05/28/20 Clinic, Electric Tripper Machine [place] [address] [place] [address] PCP - General 05/29/20 06/05/20 No, Physician PCP - General 03/30/21 03/30/21 Ary Kwan NP [address] [place] [address] PCP - General Family Medicine 03/31/21 05/20/21 Clinic, Electric Tripper Machine [address] [place] [address] PCP - General 05/21/21 02/23/22 Bhargav Jain MD [address] [address] PCP - General Family Medicine 02/24/22 documented as of this encounter
--- OUTSIDE RECORDS SUMMARY | 2024-08-02 12:50 | XMS_ITS | Clinical Summary ---
Author Organization [facility] Address [address] [place] [address] Care Team Providers Care Insurance Claims Supervisor Name Role Phone Ary Kwan Primary Care Provider [phone] Allergies Active Allergy Reactions Criticality Noted Date [...] patient's age to complete this topic Insurance JOSEPHINE Advance Directives Documents on File Type Date Recorded Patient Stem Crusher Expl anation Legal Documents 10/22/2021 5:25 PM COMPLETE D BILLING REQUEST FOR ATTJackie [employer]LETCHER [employer] Care Teams Insurance Claims Supervisor Relationship Specialty Start Date End Date Ary Kwan APNP [address] [facility] [address] [id number] PCP - General Nurse Practitioner Family 05/24/23
--- OUTSIDE RECORDS SUMMARY | 2024-08-02 12:50 | XMS_ITS | Clinical Summary ---
Author Organization [facility] Address [address] [place] [address] Care Team Providers Care Business Analyst Name Role Phone Bhargav Jain MD Primary Care Provider [phone] Allergies Active Allergy Reactions Criticality Noted Date [...] 04/25/2021 Assessment & Plan (04/25/2021 2:59 PM CANADIAN BACON TIER): Ibuprofen 600 mg every 6 hours Muscle [...] CV/Pulm: Vital signs stable, within normal limits. [place] Asthma: Albuterol PRN, last needed inhaler 6 [...] managed with dexcom/pump. Insulin gtt PRN 6. [place] Asthma: Albuterol PRN, last needed inhaler 6 [...] (03/28/2020): Added automatically from request for surgery [id number] Thrombocytopenia affecting 03/07/2020 Overview (03/28/2020): 02/26: plt [...] has been receiving frequent GC/Chlamydia tests with LAN MANAGER. Most recent was negative in early November Plan: -- will change topical drops (gtts) to moxifloxacin (intolerant of polytrim, does not like ointment -- will give azithromycin 1g once -- conj culture taken today -- will contact LAN MANAGER -- RTC in 10 days Positive urine [...] her meals. CGM, Dexcom Log in information: [email or web address] User name: [email or web address] Password: [email or web address] Current Regimen 04/04/2020 12a-3a 1.45 -- 1.5 [...] testing starting at 32 weeks (BPP at [place], NST at [facility]) -Delivery at 37-39 weeks depending on compliance and glycemic control. -Continue ASA for preeclampsia prevention Assessment & Plan (04/04/2020 10:44 AM CANADIAN BACON TIER): BS log will be reviewed by M fellow following this appointment and Mitali will be notified of any changes. Assessment & Plan (03/07/2020 1:50 PM CANADIAN BACON TIER): BS log reviewed by Dr. West, adjustments made above. Will continue weekly visits for insulin adjustments. Assessment & Plan (02/11/2020 7:59 PM CANADIAN BACON TIER): Blood sugars over the last 4 days [...] episodes. Assessment & Plan (02/01/2020 8:29 PM CANADIAN BACON TIER): BS log reviewed today by Dr. Phipps and changes made. Assessment & Plan (09/19/2019 3:33 PM CDT): Will continue current regimen and add medication for nausea. Rx placed today. Recommend she call our office with lows <65. She will keep a good log and will review in 1 week. Tobacco smoking affecting in first [facility] 09/04/2019 Overview (03/21/2020): - Previously smoked 5 [...] provided: Dr. Samuels's Referring Provider: Brandi Peres [phone] [x] Dating Criteria: LMP 06/10/19 ALYSSA 03/16/20 [...] Nexplanon [x] Method of feeding: breast [x] Car Unloader: [x] PP Depression Discussed: Autoimmune disorder 07/27/2019 [...] use. Assessment & Plan (01/22/2023 10:45 AM CANADIAN BACON TIER): --Continue PRN albuterol inhaler Depression 06/16/2012 Overview (03/04/2020): Mood ok, decided to not start Zoloft. No SI/HI. Will let us know if she desires additional support. - Continue to monitor mood Assessment & Plan (08/25/2023 4:15 AM CDT): History of depression and ADHD: Continue home Abilify, venlafaxine, Adderall Assessment & Plan (01/22/2023 10:45 AM CANADIAN BACON TIER): --Continue home doses of Abilify and venlafaxine Resolved Problems Problem Noted Date Diagnosed Date Resolved Date Diabetic ketoacidosis withou t coma associated with type 1 diabetes mellitus 05/23/2022 07/13/2023 Assessment & Plan (01/23/2023 11:09 AM CANADIAN BACON TIER): A1c 9.6% in January 2023. Patient presents [...] (03/28/2020): Added automatically from request for surgery [id number] Type 1 diabetes mellitus with complication 11/08/2018 02/11/2020 Overview (06/04/2019): Current regimen: Lantus 20, humalog 10 tid HbA1c Lab Results Component Value Date HGBA1C 13.0 (H) 11/07/2018 BP At goal Not at goal BP Readings from Last 1 Encounters: 06/04/19 119/74 Microalbumin/Creatinine No results found for: MICROALBUR, [id number] ACEi/ARB prescribed: lisinopril 2.5 Antiplatelet therapy prescribed [...] doctor within past year Ancillary Support : regional geodetic advisor, DM educator and pharmacist Assessment & Plan [...] Description 07/18/2024 3:40 PM CDT Office Visit [facility] Endocrinology Metabolism and Lipid [address] 13[address] [place] [address] [place] [address] Chadwick Fair MD PhD Type 1 diabetes mellitus with hyperglycemia (HCC) (Primary Dx); Insulin pump titration; Abnormal thyroid function test; Overweight (BMI 25.0-29.9); Class 1 obesity due to excess calories with serious comorbidity in adult, unspecified BMI 07/10/2024 11:01 PM CDT - 07/11/2024 4:35 AM CDT Emergency [facility] Emergency Department [address] [place] [id number] Sivan Awad MD Hyperglycemia (Primary Dx); Chest pain, unspecified type; Ketosis (HCC); Type 1 diabetes mellitus with hyperglycemia (HCC) Discharge Disposition: Discharge to home or self care 07/10/2024 Telephone [facility] Endocrinology Metabolism and Lipid [address], [address] [place] [address] Naya Marcus RMA Hyperglycemia 05/16/2024 Telephone [facility] Endocrinology Metabolism and Lipid [address] 5th [place] [address] [place] [address] Helen Head RN insulin/ apt [...] 03/16/2020 Added automatically from request for surgery [id number] Family History Medical History Relation Name Comments [...] drink = 0.6 oz pur e alcohol) [facility] Utilities Answer Date Recorded In the [...] often do you attend chur ch or baptist services? Never 08/25/2023 Do you belong to any clubs o r organizations such as episcopal groups, unions, fraternal or athletic groups, or [...] medical care, and heating? Somewhat hard 08/25/2023 [facility] Colp of Occupat ional Health - Occupational Stress [...] place to sleep or slept in a assisted (including now)? No 05/24/2022 Garvin Depression Scale Answer Date Recorded Garvin Depression Scale Total 0 05/28/2020 The thought [...] any time in the past 12 m [facility], were you homeless or living in a assisted (including now)? No 08/25/2023 Personal Safety Answer Date Recorded Have you ever been in or are you currently in a harmful physical or emotional relationship or is someone making you feel afraid or unsafe? Denies 07/10/2024 Comments Unknown Sex and Gender Information Value Date Recorded Sex Assigned at Not on file Legal Sex Female 9:20 AM CANADIAN BACON TIER Gender Identity Not on file Sexual Orientation [...] Diomedes Mckeon MD Complications:Shoulder Dysto matt Delivery Location:[facility] ([facility]) Last Filed Vital Signs Vital [...] diabetes mellitus with hyperglycemia (HCC) POCT GLUCOSE [id number] Routine 07/18/2024 3: 24 PM CDT Type [...] Blood 07/18/2024 3:24 PM CDT us Max Rastafarian Fair MD PhD POINT OF CARE TEST ORDERABLES Final Result * eGFR (07/11/2024 3:31 AM CDT) Pathologist [facility] eGFR >90 >=60 mL/min/1. 73 m2 Comment: [...] MD LAB BLOOD ORDERABLES F inal Result [facility] [address] [facility] [place] [address] * Basic metabolic panel (07/11/2024 3:31 AM CDT) Pathologist [facility] Sodium 136 135 - 145 mmol/L Potassium, pl 3.6 3.3 - 4.9 mmol/L [facility] Chloride 103 97 - 110 mmol/L [facility] CO2 25 22 - 32 mmol/L [facility] Anion gap 8 2 - 15 mmol/L [facility] BUN 11 6 - 25 mg/dL [facility] Creatinine 0.73 0.60 - 1.10 mg/dL [facility] Glucose 173 70 - 199 mg/dL [facility] Comment: Interpretive Data Fasting glucose [...] 2022. Calcium 9.1 8.5 - 10.3 mg/dL [facility] Blood 07/11/2024 3:31 AM CDT 07/11/2024 3:43 AM CDT Geovanny Ruano MD LAB BLOOD ORDERABLES F inal Result Performing Organization Address [facility]/ZIP Co de Phone Number [facility] [place] [address] * (ABNORMAL) POCT glucose (07/11/2024 2:57 AM CDT) Glucose, POC 207(H) 70 - 199 mg/dL Blood 07/11/2024 2:57 AM CDT 07/11/2024 2:57 AM CDT us Sivan Awad MD LAB POCT ORDERABLES - DEVIC E Final Result Performing Organization Address [facility]/ZIP Co de Phone Number [facility] [place] [address] * (ABNORMAL) POCT glucose (07/11/2024 1:45 AM CDT) Glucose, POC 303(H) 70 - 199 mg/dL Comment:Glu2: RN/MD Notified Glucose comment 1 Glu2: RN/MD Notified [facility] Blood 07/11/2024 1:45 AM CDT 07/11/2024 1:45 AM CDT Sivan Awad MD LAB POCT ORDERABLES - DEVIC E Final Result Performing Organization Address [facility] de Phone Number [facility] [place] [address] * Troponin I high-sensitivity (07/11/2024 1:25 AM CDT) Pathologist [facility] Trop I hs <4 <=17 ng/L Comment: Interpretive Data For further hscTnI resources including the diagnostic algorithm and an aid in interpretation, copy and paste this link: [email or web address] Current Interpretive Data last revised 2019. Blood 07/11/2024 1:25 AM CDT 07/11/2024 1:46 AM CDT Geovanny Ruano MD LAB BLOOD ORDERABLES F inal Result Performing Organization Address [facility] de Phone Number [facility] [place] [address] * (ABNORMAL) POCT glucose (07/11/2024 1:25 AM CDT) [facility] Glucose, POC 305(H) 70 - 199 mg/dL Blood 07/11/2024 1:25 AM CDT 07/11/2024 1:25 AM CDT Sivan Awad MD LAB POCT ORDERABLES - DEVIC E Final Result Performing Organization Address [facility] Co de Phone Number [facility] [place] [address] * D-dimer, quantitative (07/11/2024 1:25 AM CDT) [facility] D-Dimer <215 <=499 ng/mL FEU Comment: [...] ORDERABLES F inal Result Performing Organization Address City/[facility]/ZIP Co de Phone Number [facility] [place] [address] * (ABNORMAL) POCT glucose (07/10/2024 10:09 PM CDT) [facility] Glucose, POC 300(H) 70 - 199 mg/dL Comment:Glu2: RN/MD Notified Glucose comment 1 Glu2: RN/MD Notified [facility] Blood 07/10/2024 10:0 9 PM CDT 07/10/2024 10:09 PM CDT us Notinfile Unknown LAB POCT ORDERABLES - DEVICE F inal Result Performing Organization Address [facility]/ZIP Co de Phone Number [facility] [place] [address] * XR Chest Pa Lateral 2 Vw [...] Awad MD LAB BLOOD ORDERABLES Final Result [facility] [address] [facility] [place] [address] * Differential, auto (07/10/2024 8:23 PM CDT) Pathologist [facility] Neutrophil abs 5.63 1.50 - 6.50 K/cumm Imm gran abs 0.04 0.00 - 0.10 K/cumm [facility] Lymphocyte abs 2.83 0.80 - 3.30 K/cumm [facility] Monocyte abs 0.51 0.20 - 0.80 K/cumm [facility] Eosinophil abs 0.07 0.00 - 0.50 K/cumm [facility] Basophil abs 0.05 0.00 - 0.10 K/cumm [facility] Neutrophil pct 61.7 % [facility] Comment: Interpretive Data Percent cell count reference ranges are not reported, since discordance with absolute values may lead to misinterpretation of CBC data. Current Interpretive Data was last revised on 2017. Imm gran pct 0.4 % [facility] Comment: Interpretive Data Percent cell count reference ranges are not reported, since discordance with absolute values may lead to misinterpretation of CBC data. Current Interpretive Data was last revised on 2017. Lymphocyte pct 31.0 % [facility] Comment: Interpretive Data Percent cell count reference ranges are not reported, since discordance with absolute values may lead to misinterpretation of CBC data. Current Interpretive Data was last revised on 2017. Monocyte pct 5.6 % [facility] Comment: Interpretive Data Percent cell count reference ranges are not reported, since discordance with absolute values may lead to misinterpretation of CBC data. Current Interpretive Data was last revised on 2017. Eosinophil pct 0.8 % [facility] Comment: Interpretive Data Percent cell count reference ranges are not reported, since discordance with absolute values may lead to misinterpretation of CBC data. Current Interpretive Data was last revised on 2017. Basophil pct 0.5 % [facility] Comment: Interpretive Data Percent cell count reference ranges are not reported, since discordance with absolute values may lead to misinterpretation of CBC data. Current Interpretive Data was last revised on 2017. Blood 07/10/2024 8:23 PM CDT 07/10/2024 8:38 PM CDT Sivan Awad MD LAB BLOOD ORDERABLES Final Result [facility] [place] [address] * CBC with auto differential (07/10/2024 8:23 PM CDT) WBC 9.13 3.80 - 9.90 K/cumm Hgb 14.9 11.9 - 15.5 g/dL [facility] Hct 42.5 35.6 - 45.5 % [facility] Plt 214 150 - 400 K/cumm [facility] MPV 11.6 9.1 - 12.3 fL [facility] RBC 4.86 3.90 - 5.20 M/cumm [facility] MCV 87.4 81.3 - 96.4 fL [facility] MCH 30.7 27.1 - 33.3 pg [facility] MCHC 35.1 32.3 - 35.7 g/dL [facility] RDW CV 12.9 11.1 - 14.9 % [facility] RDW SD 41.1 35.7 - 48.1 fL [facility] NRBC abs 0.00 0.00 - 0.01 K/cumm [facility] Blood 07/10/2024 8:23 PM CDT 07/10/2024 8:38 PM CDT Sivan Awad MD LAB BLOOD ORDERABLES Final Result [facility] [place] [address] * (ABNORMAL) Comprehensive metabolic panel (07/10/2024 8:23 PM CDT) Sodium 138 135 - 145 mmol/L Potassium, pl 3.5 3.3 - 4.9 mmol/L [facility] Chloride 100 97 - 110 mmol/L [facility] CO2 21(L) 22 - 32 mmol/L [facility] Anion gap 17(H) 2 - 15 mmol/L [facility] BUN 11 6 - 25 mg/dL [facility] Creatinine 0.78 0.60 - 1.10 mg/dL [facility] Glucose 297(H) 70 - 199 mg/dL [facility] Comment: Interpretive Data Fasting glucose [...] 2022. Calcium 9.6 8.5 - 10.3 mg/dL [facility] Bilirubin, total 0.7 0.1 - 1.2 mg/dL [facility] Protein, pl 8.4 6.5 - 8.5 g/dL [facility] Albumin 4.7 3.5 - 5.0 g/dL [facility] Alk phos 111 40 - 130 Units/L [facility] ALT 14 7 - 45 Units/L [facility] AST 18 10 - 45 Units/L [facility] Blood 07/10/2024 8:23 PM CDT 07/10/2024 8:38 PM CDT us Sivan Awad MD LAB BLOOD ORDERABLES Final Result [facility] [address] [facility] [place] [address] * (ABNORMAL) POCT glucose (07/10/2024 8:19 PM CDT) Glucose, POC 285(H) 70 - 199 mg/dL Blood 07/10/2024 8:19 PM CDT 07/10/2024 8:19 PM CDT us Notinfile Unknown LAB POCT ORDERABLES - DEVICE F inal Result [facility] [address] [facility] [place] [address] * ECG 12-LEAD (07/10/2024 6:16 PM CDT) Narrative [facility] - 07/10/2024 6:16 PM CDT Good Martin [...] Awad MD ECG ORDERABLES Final Resul t [facility] * (ABNORMAL) POCT glucose (07/10/2024 6:01 PM CDT) Glucose, POC 249(H) 70 - 199 mg/dL Blood 07/10/2024 6:01 PM CDT 07/10/2024 6:01 PM CDT us Notinfile Unknown LAB POCT ORDERABLES - DEVICE F inal Result Performing Organization Address [facility] Co de Phone Number [facility] [place] [address] * (ABNORMAL) POCT ketone, blood (07/10/2024 6:01 PM CDT) Beta-Hydroxybut yrate, POC 0.6(H) 0.0 - 0.5 mmol/L Blood 07/10/2024 6:01 PM CDT 07/10/2024 6:01 PM CDT us Notinfile Unknown LAB POCT ORDERABLES - DEVICE F inal Result Performing Organization Address [facility] de Phone Number [facility] [place] [address] * Thyroid Function [place] (08/25/2023 12:40 AM CDT) Pathologist [facility] TSH 0.64 0.30 - 4.20 mcIUnit/mL Blood 08/25/2023 12:4 0 AM CDT 08/25/2023 12:59 AM CDT us Jaems Harding MD LAB BLOOD ORDERABLES Final Re sult Performing Organization Address [facility] de Phone Number [facility] [place] [place] [address] * (ABNORMAL) Lipid panel with direct LDL [...] PM CDT 06/02/2022 2:18 PM CDT Narrative [facility]ORE [facility] - 06/02/2022 3:07 PM CDT Current interpretive data was last updated January 16, 2021. Chadwick Fair MD PhD LAB BLOOD ORDERABL ES Final Result Performing Organization Address City/[facility] Co de Phone Number [facility] * Albumin Creatinine Ratio, Urine (05/20/2021 12:08 PM CDT) Pathologist [facility] Albumin Ur <12.0 mg/L [facility] Comment: Interpretive Data No reference range established. Current interpretive data was last revised 2018. Creatinine Ur 157.2 mg/dL [facility] Comment: Interpretive Data No reference range established. Current interpretive data was last revised 2018. Albumin Creatinine Ratio, Ur <8 1 - 29 mg/g [facility] Urine 05/20/2021 12:0 8 PM CDT 05/20/2021 12:42 PM CDT Chadwick Fair MD PhD LAB URINE ORDERABL ES Final Result Performing Organization Address [facility] Co de Phone Number [facility] [address] [facility] [place] [address] * Hepatitis C antibody (08/27/2019 11:57 AM CDT) Pathologist [facility] Hep C Ab NONREACT NONREACTIVE [facility][NOTE 3] Comment: Siemens DiabetoaurXP using MATT (chemiluminescent immunoassay) technology. NONREACTIVE: Antibodies [...] MICROBIOLOGY - GEN ERAL ORDERABLES Final Result [address] [address], [facility] [phone] from Last 3 Months or Most Recently Relevant to Health Maintenance Insurance [facility] Member Subscriber Plan / Payer (Ef fective 2021-Present) Name:Toña Lynlidia Murillo Relation to Subscriber:Self Name:Mitali Lyn Payer ID:[id number] (NAIC) Group ID:Not on file Type:MEDICAID RISK OTHER Address: ATTN: CLAIMS DEPT [address] [place] [address] Advance Directives For more information, please contact: [phone] * Full Code (Latest Code Status on [...] 10:51 AM 02/29/2020 8:26 PM Care Teams Business Analyst Relationship Specialty Start Date End Date Bhargav Jain MD [address] [place] [address] PCP - General Family Medicine 02/24/22
[2024-08-02] MEDS: AMOXICILLIN/CLAVULANATE K 875-125 MG TAB 1 TABLET PO (13:02)
[2024-08-02] MEDS: BUPivacaine HCL 0.25% PF 30 ML VIAL INFILTRATE (13:02)
[2024-08-02] MEDS: KETOROLAC 30 MG/ML VIAL (*BKC) IM (13:02)
== END 2024-08-02 13:05 | disposition home or self-care (01) ==
PROVIDERS: Emergency Provider Emergency Medicine; PCP Nurse Practitioner Family
DX: K08.89 Other specified disorders of teeth and supporting structures (principal); J45.909 Unspecified asthma, uncomplicated; E55.9 Vitamin D deficiency, unspecified; E07.9 Disorder of thyroid, unspecified; E53.8 Deficiency of other specified B group vitamins; E10.9 Type 1 diabetes mellitus without complications; F41.9 Anxiety disorder, unspecified; F32.A Depression, unspecified; F90.9 Attention-deficit hyperactivity disorder, unspecified type; Z87.891 Personal history of nicotine dependence; Z79.4 Long term (current) use of insulin; Z79.899 Other long term (current) drug therapy
CPT/HCPCS: 82948; 96372; 99283; A9270; J1885